=== PATIENT | female | born 1980 | race Caucasian/White ===

== ENCOUNTER 2019-10-31 02:25 | Emergency (ER) | payer MEDICARE, SELFPAY ==
--- NOTE | ~2019-10-31 | XR_ITS ---
EXAMINATION: XR chest 2V DATE: 10/31/2019 03:11 INDICATION: Anxiety. Shortness of breath. TECHNIQUE: PA and lateral views of the chest were obtained. COMPARISON: None FINDINGS: Lung volumes are decreased. No focal airspace opacities, pulmonary edema, pleural effusion or pneumot horax. The cardiomediastinal silhouette is normal. Moderate thoracic spondylosis. IMPRESSION: 1. Small lung volumes. No other acute cardiopulmonary disease. Reviewed, dictated and finalized at location A.
[2019-10-31 02:28] VITALS: BP 187/75; PULSE 81; RESP 26; TEMP 37.1; O2SAT 98
--- NOTE | 2019-10-31 02:38 | ED.GENADULT ---
HPI - General Adult General Chief complaint: Asthma Stated complaint: asthma attack Time Seen by Provider: 10/31/19 02:32 History of Present Illness HPI narrative: Patient presents to the ED with a asthma attack . She has a loud stridorous sound, that stops when answering questions or getting her temperature taken. She said that her inhalers were not working at home. She feels short of breath. She denies cough chills or sweats. She says she has a burning chest pain and points from her upper sternum to her lower sternum. She denies any GERD. Her surgical history includes gastric bypass, and a blotched states. She does not smoke cigarettes, and alcohol, or do drug. She does not work outside the home. She takes Zoloft for her anxiety. Onset (ago): hour(s) Radiation: non-radiation Severity: moderate Related Data Home Medications Medication Instructions Recorded Confirmed albuterol sulfate 90 mcg/actuation 2 puff INHALATION Q4-6H PRN gm 03/16/19 03/16/19 aerosol inhaler ferrous sulfate 325 mg (65 mg 325 mg PO DAILY 03/16/19 03/16/19 iron) tablet levothyroxine 50 mcg tablet 50 mcg PO DAILY 03/16/19 03/16/19 vits no.118-iron asparto 2 cap PO DAILY cap 03/16/19 03/16/19 30 mg-folate 1 mg-dha 300 mg capsule vitamin B complex 1 cap PO DAILY 03/16/19 03/16/19 vitamin B12 1,000 mcg-folic acid lozenge SUBLINGUAL DAILY 03/16/19 03/16/19 400 mcg sublingual lozenge Allergies Allergy/AdvReac Type Severity Reaction Status Date / Time NSAIDS (Non-Steroidal Allergy Severe due to Verified 10/31/19 04:23 Anti-Inflamma gastric bypass ciprofloxacin Allergy Mild rash Verified 10/31/19 04:23 ayleen Allergy Mild Rash Verified 10/31/19 04:23 Review of Systems Review of Systems: Narrative: CONSTITUTIONAL: Denies fever, chills, or sweats. EYES: Denies visual changes, redness, or discharge. ENT: Denies rhinorrhea, congestion, sore throat, or otalgia. CARDIOVASCULAR: She has chest pain,. RESPIRATORY: Denies cough but does complain of shortness of breath GASTROINTESTINAL: Denies abdominal pain, nausea, vomiting, or diarrhea. GENITOURINARY: Denies dysuria or hematuria. SKIN: Denies rash or itching. MUSCULOSKELETAL: Denies back pain, joint pain, or myalgia. NEUROLOGIC: Denies headache, numbness, or weakness. PSYCHIATRIC: She has anxiety. All systems reviewed & are unremarkable except as noted in HPI and below PMFSH Past Medical History Medical History Depression Morbid obesity Surgical History Surgical History (Updated 10/31/19 @ 02:42 by Rona Golden MD) Bariatric surgery status Social History Social History Smoking status: Never smoker Second hand tobacco smoke exposure: No Smoking end date: 03/25/00 Alcohol intake: never Substance use: never Exam Narrative: Exam Narrative: GENERAL: Well-appearing, well-nourished, and in no acute distress. Overweight. Loud voluntary stridorous sound. HEAD: Normocephalic, atraumatic. EYES: PERRLA and EOMI. ENT: Nares clear, no rhinorrhea or epistaxis. Mucous membranes moist. NECK: Supple. CHEST: Clear to auscultation. No respiratory distress. No retractions, no wheezes, no crackles. HEART: Regular rate and rhythm. No murmur heard. Normal peripheral pulses. ABDOMEN: Soft, nontender, nondistended, normal active bowel sounds. EXTREMITIES: Normal range of motion. No edema. SKIN: Warm, dry, no rash. NEURO: No focal deficits. Alert and oriented x3. PSYCH: Crying. Course Reevaluation(s) Reevaluation #1: Her shortness of breath is resolved. She still says that she has some burning in her chest. GI cocktail did help the upper chest. We will try to repeat it without the belladonna for the lower chest. We will also give an oral Pepcid. Date: 10/31/19 Time: 04:09 Reevaluation #2: Give the patient a second GI cocktail without the belladonna, and
[2019-10-31] MEDS: BELLADONNA ALK/PHENOB ELIX 10 ML, MAG HYDROX/ALUMINUM HYD/SIMETH 30 ML, LIDOCAINE HCL 2... PO (02:53)
[2019-10-31 02:54] LABS: Alveolar/Arterial O2 Gradient 26.7 mmHg; Base Excess ABG -0.5 mEq/l (+/-2.0); Fractional Inspired Oxygen 21 %; HCO3 ABG 23.4 mEq/l (22.0-26.0); Oxygen Content ABG 17.4 %vol (16.0-22.0); Oxygen Saturation ABG 96.2 % (95.0-100.0); Oxyhemoglobin 93.7 % THb (90.0-100.0); PO2 ABG 79.9 mmHg (80.0-100.0); Total Hemoglobin 13.2 g/dL (12.0-18.0); pH ABG 7.431 (7.350-7.450)
[2019-10-31 02:55] LABS: Device ROOM AIR; Modified Allen's Test Pass; Site Drawn RIGHT RADIAL
[2019-10-31 02:56] VITALS: BP 148/81; PULSE 82; RESP 20; O2SAT 100
--- NOTE | 2019-10-31 03:25 | PC.NURSE ---
Patient reports no pain relief with meds--DR Golden aware
[2019-10-31 03:45] LABS: Basophils Percent Auto 0.5 % (0.2-1.2); Eosinophils Absolute Auto 0.1 K/mm3 (0-0.3); Eosinophils Percent Auto 1.1 % (0-4.4); Hematocrit 38.6 % (37.0-47.0); Hemoglobin 12.3 g/dL (12.0-15.0); Immature Granulocyte Absolute 0.03 K/mm3 (0.00-0.031); Immature Granulocyte Percent A 0.4 % (0-0.5); Lymphocytes Absolute Auto 1.34 K/mm3 (0.9-3.2); Lymphocytes Percent Auto 15.8 % (18.3-44.2); Mean Corpuscular HGB Conc 31.9 g/dl (32-36); Mean Corpuscular Hemoglobin 28.2 pg (26-34); Mean Corpuscular Volume 88.5 fl (80-100); Mean Platelet Volume 10.3 fl (7.4-10.4); Monocytes Absolute Auto 0.5 K/mm3 (0.1-0.6); Monocytes Percent Auto 5.4 % (2.6-8.5); Neutrophils Absolute Auto 6.5 K/mm3 (1.3-6.7); Neutrophils Percent Auto 76.8 % (45.5-73.1); Platelet Count Result 227 k/mm3 (150-375); Red Blood Count 4.36 M/mm3 (4.2-5.4); Red Cell Distribution Width 16.5 % (11.5-14.5); White Blood Count 8.5 K/mm3 (4.5-10.0)
[2019-10-31 03:58] LABS: Alanine Aminotransferase 21 U/L (4-35); Alkaline Phosphatase 60 U/L (38-126); Anion Gap 9 mmol/L (8-16); Aspartate Amino Transferase 21 U/L (14-36); Bilirubin,Total < 0.1 mg/dL (0.2-1.3); Blood Urea Nitrogen 15 mg/dL (7-17); Calcium 8.9 mg/dL (8.4-10.2); Carbon Dioxide 22 mmol/L (22-30); Chloride 107 mmol/L (98-107); Estimated CRCL calculation 177 ml/min; Estimated Glomerular Filt Rate > 60; Glucose 117 mg/dL (65-105); Potassium 3.7 mmol/L (3.4-5.0); Sodium 138 mmol/L (137-145)
[2019-10-31] MEDS: LIDOCAINE HCL 2% VISC SOLN 15 ML UDC PO (04:20)
[2019-10-31] MEDS: MAG HYDROX/AL HYDROX/SIMETH 30 ML UDC PO (04:20)
[2019-10-31 04:31] VITALS: BP 140/78; PULSE 65; RESP 17; O2SAT 98
[2019-10-31] MEDS: FAMOTIDINE 20 MG TABLET PO (04:32)
[2019-10-31 05:47] VITALS: BP 141/90; PULSE 82; RESP 16; TEMP 36.9; O2SAT 100
== END 2019-10-31 05:48 | disposition home or self-care (01) ==
PROVIDERS: Emergency Provider Emergency Medicine; PCP Internal Medicine
DX: R06.4 Hyperventilation (principal); R07.89 Other chest pain; K21.0 Gastro-esophageal reflux disease with esophagitis; J45.909 Unspecified asthma, uncomplicated; F41.9 Anxiety disorder, unspecified; E66.01 Morbid (severe) obesity due to excess calories; Z68.41 Body mass index [BMI] 40.0-44.9, adult; Z98.84 Bariatric surgery status; F32.9 Major depressive disorder, single episode, unspecified
CPT/HCPCS: 36415; 36600; 71046; 80053; 82805; 85025; 99283; A9270

== ENCOUNTER 2019-12-29 07:13 | Outpatient (CLI) | payer MEDICARE, SELFPAY ==
--- NOTE | ~2019-12-29 | XR_ITS ---
XR hip BI 2V w AP pelvis DATE: 12/29/2019 07:45 INDICATION: Bilateral hip pain TECHNIQUE: AP pelvis. AP and lateral views of each hip COMPARISON: None FINDINGS: Surgical clips overlie the lower abdomen and pelvis bilaterally. No pelvic fracture or bone destruction is detected. The pubic symphysis and sacroiliac joints are int act. Hip joint spaces are symmetric and relatively well preserved. No fracture, dislocation, avascular necrosis or bone destruction of either hip is evident. There is m ild spurring of the left femoral head consistent with mild left hip osteoarthritis. IMPRESSION: Mild left hip osteoarthritis Reviewed, dictated and finalized at location A.
--- NOTE | ~2019-12-29 | XR_ITS ---
XR lumbar spine 2-3V DATE: 12/29/2019 07:44 INDICATION: Back pain, bilateral hip pain. No injury. TECHNIQUE: AP, lateral, coned lateral lumbosacral views COMPARISON: None FINDINGS: Postoperative changes of the abdomen are noted bilaterally. Minimal dextroscoliosis of the lower thoracic and lumbar spine. There is multilevel moderate to moderately severe degenerative disc disease of the lumbar spine. No f racture or bone destruction or spondylolisthesis. The included lower thoracic and lumbar pedicles are intact. Normal sacroiliac joints. IMPRESSION: Minimal dextro scoliosis Moderate to moderately severe multilevel degenerative disc disease of the lumbar and lumbosacral spin e Reviewed, dictated and finalized at location A. IMPRESSION: Minimal dextro scoliosis Moderate to moderately severe multilevel degenerative disc disease of the lumba r and lumbosacral spine
== END 2019-12-29 07:14 | disposition home or self-care (01) ==
LOC: ANHIMG 07:20
PROVIDERS: PCP Internal Medicine; Visit Provider Internal Medicine
DX: M16.12 Unilateral primary osteoarthritis, left hip (principal); M51.36 Other intervertebral disc degeneration, lumbar region; M25.551 Pain in right hip
CPT/HCPCS: 72100; 73521

== ENCOUNTER 2020-04-04 12:05 | Outpatient (NON) | payer MEDICARE, SELFPAY ==
[2020-04-06 00:15] LABS: SARS-CoV-2 RNA PCR Negative
== END 2020-04-04 12:06 ==
LOC: ANHCOVIDDT 12:06
PROVIDERS: PCP Internal Medicine; Visit Provider Internal Medicine
DX: Z20.822 Contact with and (suspected) exposure to COVID-19 (principal)
CPT/HCPCS: C9803; U0003

== ENCOUNTER 2020-07-06 15:23 | Outpatient (CLI) | payer MEDICARE, SELFPAY | END 2020-07-06 15:24 | disposition home or self-care (01) | LOC: ANHCOVIDVC 15:23 | PROVIDERS: PCP Internal Medicine | DX: Z23 Encounter for immunization (principal) | CPT/HCPCS: 0001A; 91300 ==

== ENCOUNTER 2020-07-27 17:39 | Outpatient (CLI) | payer MEDICARE, SELFPAY | END 2020-07-27 17:40 | disposition home or self-care (01) | LOC: ANHCOVIDVC 17:39 | PROVIDERS: PCP Internal Medicine | DX: Z23 Encounter for immunization (principal) | CPT/HCPCS: 0002A; 91300 ==

== ENCOUNTER 2020-08-16 08:42 | Emergency (ER) | payer MEDICARE, SELFPAY ==
--- NOTE | ~2020-08-16 | CT_ITS ---
EXAMINATION: CT lumbar spine w con DATE: 08/16/2020 11:04 INDICATION: Left-sided low back pain. TECHNIQUE: Computed tomography (CT) of the lumbar spine was performed with 100 mL Omnipaque 350 intra venous contrast. Automated exposure control and iterative reconstruction technique were employed. The dose-length product was 1409.01 mGy-cm. COMPARISON: None FINDINGS: There are surgical changes in the stomach. There is 4 degrees levocurvature of lower lumbar spine. There is 11 degrees dextroscoliosis of thoracolumbar spine. There are Schmorl's nodes at many levels. There is mildly decreased disc height at L1-L2, moderately decreased disc height at L2-L3, L 3-L4, and L4-L5 and mildly decreased disc height at L5-S1. The following disc levels are specifically discussed: L1-L2: The disc is bulging. There is mild bilateral facet joint osteoarthritis. There is mild bilater al neural foraminal stenosis. There is mild central canal stenosis. L2-L3: The disc is bulging. There is moderate bilateral facet joint osteoarthritis. There is mild mao ateral neural foraminal stenosis. There is mild central canal stenosis. L3-L4: Disc is bulging. There is mild bilateral facet joint osteoarthritis. There is moderate right a nd mild left neural foraminal stenosis. There is mild central canal stenosis. L4-L5: The disc is bulging. There is severe bilateral facet joint osteoarthritis. There is moderate b ilateral neural foraminal stenosis. There is mild central canal stenosis. L5-S1: The disc is bulging. There is severe bilateral facet joint osteoarthritis. There is mild bilat eral neural foraminal stenosis. There is mild central canal stenosis. IMPRESSION: 1. Moderate lumbar spondylosis. 2. Scoliosis. Reviewed, dictated and finalized at location B.
[2020-08-16 08:45] VITALS: BP 161/112; PULSE 83; RESP 18; TEMP 37.4; O2SAT 95
[2020-08-16] MEDS: MORPHINE SULFATE (*CRX) 2 MG/ML INJ IV PUSH (09:43)
[2020-08-16] MEDS: SODIUM CHLORIDE 0.9% IV 1,000 ML 999 ML IV CONT (09:43)
[2020-08-16] MEDS: diazePAM INJ (*CRX) 10 MG/2 ML SYRINGE 5 MG IV PUSH (09:43)
[2020-08-16] MEDS: DEXAMETHASONE SOD PHOS INJ 4 MG/ML VIAL 10 MG IV PUSH (09:43)
[2020-08-16 09:45] VITALS: BP 150/83; PULSE 84; RESP 28; O2SAT 98
[2020-08-16] MEDS: LIDOCAINE 5% PATCH 1 PATCH TRANSDERM (09:49)
[2020-08-16 09:52] LABS: Basophils Percent Auto 0.6 % (0.2-1.2); Eosinophils Absolute Auto 0.2 K/mm3 (0-0.3); Eosinophils Percent Auto 2.7 % (0-4.4); Hematocrit 39.8 % (37.0-47.0); Hemoglobin 12.6 g/dL (12.0-15.0); Immature Granulocyte Absolute 0.02 K/mm3 (0.00-0.031); Immature Granulocyte Percent A 0.3 % (0-0.5); Lymphocytes Absolute Auto 1.57 K/mm3 (0.9-3.2); Lymphocytes Percent Auto 22.2 % (18.3-44.2); Mean Corpuscular HGB Conc 31.7 g/dl (32-36); Mean Corpuscular Hemoglobin 27.8 pg (26-34); Mean Corpuscular Volume 87.7 fl (80-100); Mean Platelet Volume 10.4 fl (7.4-10.4); Monocytes Absolute Auto 0.5 K/mm3 (0.1-0.6); Monocytes Percent Auto 7.1 % (2.6-8.5); Neutrophils Absolute Auto 4.8 K/mm3 (1.3-6.7); Neutrophils Percent Auto 67.1 % (45.5-73.1); Platelet Count Result 322 k/mm3 (150-375); Red Blood Count 4.54 M/mm3 (4.2-5.4); Red Cell Distribution Width 16.7 % (11.5-14.5); White Blood Count 7.1 K/mm3 (4.5-10.0)
[2020-08-16 10:02] LABS: Add Urine Microscopic? YES; Appearance Urine Cloudy (Clear); Bilirubin Urine Negative (Negative); Blood Urine Negative (Negative); Color Urine Yellow (Yellow); Glucose Urine UA Negative (Negative); Ketones Urine Negative (Negative); Leukocyte Esterase Ur Negative LEU/UL (Negative); Mucus Urine Heavy /lpf; Nitrate Urine Negative (Negative); Protein Urine 1+ mg/dL (Negative); Specific Grav Ur 1.025 (1.001-1.035); Squamous Epithelial Cell Urine Occasional /hpf (Few); Urobilinogen Urine Negative mg/dL (<2.0); WBC Urine 0-3 /hpf
[2020-08-16 10:18] VITALS: BP 166/98; PULSE 80; RESP 15; O2SAT 95
[2020-08-16 10:20] LABS: Erythrocyte Sedimentation Rate 21 mm/hr (0-20)
--- NOTE | 2020-08-16 10:32 | ED.GENADULT ---
HPI - General Adult General Chief complaint: Back Pain/Injury Stated complaint: back pain Time Seen by Provider: 08/16/20 09:11 Source: patient and RN notes reviewed Mode of arrival: ambulatory Limitations: no limitations History of Present Illness HPI narrative: Patient is a 39-year-old female who presents to emergency department for evaluation of pain to the left lower back that radiates down the leg began a week ago after helping lift an object with her family member patient notes longstanding history of chronic low back pain is followed by primary care for this pain is worse with activity and movement. Patient denies other illness injury or complaint on arrival appears uncomfortable presents with a walker notes that the pain is giving her issues with moving about. Related Data Home Medications Medication Instructions Recorded Confirmed albuterol sulfate 90 mcg/actuation 2 puff INHALATION Q4-6H PRN gm 03/16/19 04/27/20 aerosol inhaler ferrous sulfate 325 mg (65 mg 325 mg PO DAILY 03/16/19 04/27/20 iron) tablet levothyroxine 50 mcg tablet 50 mcg PO DAILY 03/16/19 04/27/20 vits no.118-iron asparto 2 cap PO DAILY cap 03/16/19 04/27/20 30 mg-folate 1 mg-dha 300 mg capsule vitamin B complex 1 cap PO DAILY 03/16/19 04/27/20 vitamin B12 1,000 mcg-folic acid lozenge SUBLINGUAL DAILY 03/16/19 04/27/20 400 mcg sublingual lozenge bupropion HCl 300 mg 24 hr tablet, 300 mg PO QAM 07/19/20 extended release duloxetine 60 mg capsule,delayed 60 mg PO DAILY 07/19/20 release Allergies Allergy/AdvReac Type Severity Reaction Status Date / Time NSAIDS (Non-Steroidal Allergy Severe due to Verified 08/16/20 08:53 Anti-Inflamma gastric bypass ciprofloxacin Allergy Mild rash Verified 08/16/20 08:53 ayleen Allergy Mild Rash Verified 08/16/20 08:53 Review of Systems Review of Systems: All systems reviewed & are unremarkable except as noted in HPI and below PMFSH Past Medical History Medical History Asthma Depression Hypothyroidism Morbid obesity Vaginal delivery Surgical History Surgical History Bariatric surgery status Previous section Family History Family History Father Hypertension Family history of elevated blood lipids Mother Hypertension Other Diabetes mellitus Social History Social History Years smoked: 2 Smoking status: Former smoker Second hand tobacco smoke exposure: No Smoking end date: 03/25/00 Additional smoking assessment comments: A pack a week Alcohol intake: never Substance use: never Substance use type: marijuana Gender identity (if verbalized by the patient): Female Exam Narrative: Exam Narrative: GENERAL: Well-appearing, obese, uncomfortable and in no acute distress. HEAD: Normocephalic, atraumatic. EYES: PERRLA and EOMI. ENT: Nares clear, no rhinorrhea or epistaxis. Mucous membranes moist. CHEST: Clear to auscultation. No respiratory distress. No wheezes rales or rhonchi HEART: Regular rate and rhythm. No murmur heard. Normal peripheral pulses. ABDOMEN: Soft, nontender, nondistended EXTREMITIES: Normal range of motion. No edema. Tenderness of the left lower lumbar region over the SI region no rashes or deformities SKIN: Warm, dry, no rash. NEURO: No focal deficits. Alert and oriented x3. Cranial nerves II through XII grossly intact. Motor and sensory intact and symmetrical in the lower extremities PSYCH: Normal mood and affect. Course Course Emergency Course: Patient will be discharged with outpatient follow-up with primary care afebrile nontoxic-appearing no distress agreeing with this plan had improvement with medications ABCs and vital signs intact and stable Vital Signs Vital signs: Vital S
[2020-08-16 10:35] LABS: Alanine Aminotransferase 19 U/L (4-35); Albumin Level 3.9 g/dL (3.5-5.1); Alkaline Phosphatase 65 U/L (38-126); Anion Gap 8 mmol/L (8-16); Aspartate Amino Transferase 20 U/L (14-36); Bilirubin,Total 0.2 mg/dL (0.2-1.3); Blood Urea Nitrogen 11 mg/dL (7-17); CRP < 0.5 mg/dL (<1.0); Calcium 8.9 mg/dL (8.4-10.2); Carbon Dioxide 24 mmol/L (22-30); Chloride 109 mmol/L (98-107); Estimated CRCL calculation 150 ml/min; Estimated Glomerular Filt Rate > 60; Glucose 97 mg/dL (65-105); Sodium 141 mmol/L (137-145)
[2020-08-16 10:39] LABS: Amphetamine Screen Urine Negative (Negative); Barbiturate Screen Urine Negative (Negative); Benzodiazepines Screen Urine Negative (Negative); Cannabinoid Screen Urine Positive (Negative); Cocaine Screen Urine Negative (Negative); Methadone Screen Urine Negative (Negative); Opiate Screen Urine Negative (Negative); Phencyclidine Screen Urine Negative (Negative)
--- NOTE | 2020-08-16 11:06 | PC.NURSE ---
Report given to Joseluis NGUYEN at this time
[2020-08-16 11:27] VITALS: BP 137/90; PULSE 68; RESP 20; O2SAT 96
[2020-08-16] MEDS: PROMETHAZINE HCL 25 MG/ML AMPUL 12.5 MG IV PUSH (11:48)
--- NOTE | 2020-08-16 11:53 | PC.NURSE ---
50mL saline bag used for Phenergan dilution.
[2020-08-16 12:15] VITALS: BP 145/88; PULSE 69; RESP 18; O2SAT 98
== END 2020-08-16 12:17 | disposition home or self-care (01) ==
PROVIDERS: Emergency Medicine Emergency Medical Services; Emergency Provider Emergency Medicine; PCP Internal Medicine
DX: M47.26 Other spondylosis with radiculopathy, lumbar region (principal); J45.909 Unspecified asthma, uncomplicated; E03.9 Hypothyroidism, unspecified; E66.01 Morbid (severe) obesity due to excess calories; Z68.41 Body mass index [BMI] 40.0-44.9, adult; F32.9 Major depressive disorder, single episode, unspecified; Z98.84 Bariatric surgery status; Z87.891 Personal history of nicotine dependence; M41.9 Scoliosis, unspecified
CPT/HCPCS: 36415; 51701; 72132; 80053; 80307; 81001; 81025; 85025; 85652; 86140; 96361; 96374; 96375; 99284; A9270; J1100; J2270; J2550; J3360; J7030; Q9967

== ENCOUNTER 2020-09-23 15:36 | Outpatient (CLI) | payer MEDICARE, SELFPAY ==
--- NOTE | ~2020-09-23 | MM_ITS ---
EXAMINATION: MM screening beti BI w leo HISTORY: Screening mammogram TECHNIQUE: Craniocaudal and mediolateral oblique 3-D tomosynthesis images were obtained and synthetic 2-D images were generated. CAD analysis was submitted and interpreted. COMPARISON: None, baseline BREAST PARENCHYMAL COMPOSITION: The breasts are almost entirely fatty. FINDINGS: RIGHT BREAST: A mass is present in the middle third of the outer breast 9.5 cm from the nipple. LEFT BREAST: There is no evidence of suspicious mass, calcification, or architectural distortion to s uggest malignancy. IMPRESSION: 1. Right breast mass. 2. Additional mammographic views and possible breast ultrasound are recommended to evaluate for malig maria dolores and establish a baseline given that this is the first mammographic examination. BI-RADS Category 0: Incomplete: Needs additional imaging evaluation. Reviewed, dictated and finalized at location A. IMPRESSION: 1. Right breast mass. 2. Additional mammographic views and possible breast ultrasound are recommended to evaluate for malignancy and establish a baseline given that this is the fir st mammographic examination. BI-RADS Category 0: Incomplete: Needs additional imaging evaluation.
== END 2020-09-23 15:37 | disposition home or self-care (01) ==
LOC: ANHIMG 15:45
PROVIDERS: PCP Internal Medicine; Visit Provider Obstetrics & Gynecology
DX: Z12.31 Encounter for screening mammogram for malignant neoplasm of breast (principal); R92.8 Other abnormal and inconclusive findings on diagnostic imaging of breast
CPT/HCPCS: 77063; 77067

== ENCOUNTER 2020-11-01 11:18 | Outpatient (CLI) | payer MEDICARE, SELFPAY ==
--- NOTE | ~2020-11-01 | MMUS_ITS ---
EXAMINATION: MM diagnostic beti RT w leo, US breast RT limited HISTORY: Follow-up right breast asymmetry TECHNIQUE: Additional 3-D tomosynthesis images of the right breast were performed and synthetic 2-D i mages were generated. CAD analysis was submitted and interpreted. High resolution Limited right breas t ultrasound was performed. COMPARISON: 09/23/2020 BREAST PARENCHYMAL COMPOSITION: Breast composed of scattered areas of fibroglandular density. FINDINGS: MAMMOGRAPHIC FINDINGS: The asymmetry lateral aspect of the right breast on cc view is less dense with spot compression view, most likely superimposed fibroglandular tissue. No discrete mass, architectural distortion or suspic ious calcifications are identified. ULTRASOUND: Limited right breast ultrasound: Normal heterogeneous echotexture without focal solid or cystic mass. IMPRESSION: 1. No evidence for malignancy in the right breast. 2. Routine yearly screening mammogram and regular clinical breast examination are recommended. BI-RADS Category 2: Benign finding(s). Reviewed, dictated and finalized at location A. IMPRESSION: 1. No evidence for malignancy in the right breast. 2. Routine yearly screening mammogram and regular clinical breast examination a re recommended. BI-RADS Category 2: Benign finding(s).
== END 2020-11-01 11:19 | disposition home or self-care (01) ==
LOC: ANHIMG 11:19
PROVIDERS: PCP Internal Medicine; Visit Provider Obstetrics & Gynecology
DX: R92.8 Other abnormal and inconclusive findings on diagnostic imaging of breast (principal)
CPT/HCPCS: 76642; 77061; 77065; G0279

== ENCOUNTER 2020-12-04 05:56 | Emergency (ER) | payer MEDICARE, SELFPAY ==
--- NOTE | ~2020-12-04 | XR_ITS ---
EXAMINATION: XR chest 1V portable EXAM DATE: 12/04/2020 08:28 INDICATION: Cough. TECHNIQUE: Portable AP frontal chest x-ray was obtained. Comparison is made to prior examination from 10/31/2019. FINDINGS: The lungs are clear. There are no pleural effusions. The cardiomediastinal silhouette is within normal limits. There is no pneumothorax suspected. The bones and soft tissues are unremarkab le. IMPRESSION: No acute cardiopulmonary findings. Reviewed, dictated and finalized at location A.
[2020-12-04 05:59] VITALS: BP 163/102; PULSE 69; RESP 17; TEMP 36.6; O2SAT 98
[2020-12-04 08:10] VITALS: BP 143/79; PULSE 70; RESP 12; O2SAT 98
[2020-12-04] MEDS: SODIUM CHLORIDE 0.9% IV 1,000 ML 999 ML IV CONT (08:20)
[2020-12-04 08:26] LABS: Basophils Percent Auto 0.6 % (0.2-1.2); Eosinophils Absolute Auto 0.2 K/mm3 (0-0.3); Eosinophils Percent Auto 2.3 % (0-4.4); Hematocrit 35.7 % (37.0-47.0); Immature Granulocyte Absolute 0.02 K/mm3 (0.00-0.031); Immature Granulocyte Percent A 0.3 % (0-0.5); Lymphocytes Percent Auto 21.6 % (18.3-44.2); Mean Corpuscular HGB Conc 30.8 g/dl (32-36); Mean Corpuscular Hemoglobin 26.5 pg (26-34); Mean Platelet Volume 9.7 fl (7.4-10.4); Monocytes Absolute Auto 0.6 K/mm3 (0.1-0.6); Monocytes Percent Auto 8.8 % (2.6-8.5); Neutrophils Absolute Auto 4.6 K/mm3 (1.3-6.7); Neutrophils Percent Auto 66.4 % (45.5-73.1); Platelet Count Result 275 k/mm3 (150-375); Red Blood Count 4.15 M/mm3 (4.2-5.4); Red Cell Distribution Width 15.9 % (11.5-14.5); White Blood Count 6.9 K/mm3 (4.5-10.0)
[2020-12-04 08:27] LABS: Add Urine Microscopic? NO; Appearance Urine Clear (Clear); Bilirubin Urine Negative (Negative); Blood Urine Negative (Negative); Color Urine Yellow (Yellow); Glucose Urine UA Negative (Negative); Ketones Urine Negative (Negative); Leukocyte Esterase Ur Negative LEU/UL (Negative); Nitrate Urine Negative (Negative); Protein Urine Negative (Negative); Specific Grav Ur 1.018 (1.001-1.035); Urobilinogen Urine Negative mg/dL (<2.0)
[2020-12-04 08:46] LABS: Alanine Aminotransferase 30 U/L (4-35); Albumin Level 4.1 g/dL (3.5-5.1); Alkaline Phosphatase 69 U/L (38-126); Anion Gap 7 mmol/L (8-16); Aspartate Amino Transferase 29 U/L (14-36); Bilirubin,Total 0.3 mg/dL (0.2-1.3); Blood Urea Nitrogen 13 mg/dL (7-17); Carbon Dioxide 24 mmol/L (22-30); Chloride 105 mmol/L (98-107); Estimated CRCL calculation 173 ml/min; Estimated Glomerular Filt Rate > 60; Glucose 106 mg/dL (65-110); Lipase 260 U/L (23-300); Potassium 4.5 mmol/L (3.4-5.0); Sodium 136 mmol/L (137-145)
--- NOTE | 2020-12-04 09:30 | ED.GENADULT ---
HPI - General Adult General Chief complaint: Unspecified Stated complaint: rectal pain, congestion Time Seen by Provider: 12/04/20 08:00 Source: patient Mode of arrival: ambulatory Limitations: no limitations History of Present Illness HPI narrative: Patient is 40 years old white female presented to the ED because of rectal pain. Patient have history of similar symptoms over the years off and on. Patient had watery diarrhea started yesterday, subsequently started having pain at the rectal area. Patient started on Kaopectate, which stopped the diarrhea. Patient reports maximum 3 episodes of watery stool yesterday. Patient been having cold symptoms over the last 3 days including nasal congestion, sore throat, postnasal discharge, her kids had similar symptoms, tested negative for COVID-19. Patient is fully vaccinated for COVID-19 patient denies any shortness of breath or chest pain. Related Data Home Medications Medication Instructions Recorded Confirmed albuterol sulfate 90 mcg/actuation 2 puff INHALATION Q4-6H PRN gm 03/16/19 11/07/20 aerosol inhaler ferrous sulfate 325 mg (65 mg 325 mg PO DAILY 03/16/19 11/07/20 iron) tablet vits no.118-iron asparto 2 cap PO DAILY cap 03/16/19 11/07/20 30 mg-folate 1 mg-dha 300 mg capsule vitamin B complex 1 cap PO DAILY 03/16/19 11/07/20 vitamin B12 1,000 mcg-folic acid lozenge SUBLINGUAL DAILY 03/16/19 11/07/20 400 mcg sublingual lozenge bupropion HCl 300 mg 24 hr tablet, 300 mg PO QAM 07/19/20 11/07/20 extended release duloxetine 60 mg capsule,delayed 60 mg PO DAILY 07/19/20 11/07/20 release Allergies Allergy/AdvReac Type Severity Reaction Status Date / Time NSAIDS (Non-Steroidal Allergy Severe due to Verified 11/07/20 10:40 Anti-Inflamma gastric bypass ciprofloxacin Allergy Mild rash Verified 11/07/20 10:40 ayleen Allergy Mild Rash Verified 11/07/20 10:40 Review of Systems Review of Systems: CONSTITUTIONAL: Denies fever, chills, or sweats. EYES: Denies visual changes, redness, or discharge. ENT: Denies rhinorrhea, congestion, sore throat, or otalgia. CARDIOVASCULAR: Denies chest pain, palpitations, or edema. RESPIRATORY: Denies cough or dyspnea. GASTROINTESTINAL: Denies abdominal pain, nausea, vomiting, or diarrhea. GENITOURINARY: Denies dysuria or hematuria. SKIN: Denies rash or itching. MUSCULOSKELETAL: Denies back pain, joint pain, or myalgia. NEUROLOGIC: Denies headache, numbness, or weakness. PSYCHIATRIC: Denies anxiety or depression. PMFSH Past Medical History Medical History Asthma Depression Hypothyroidism Morbid obesity Vaginal delivery Surgical History Surgical History Bariatric surgery status Previous section Family History Family History Father Hypertension Family history of elevated blood lipids Mother Hypertension Other Diabetes mellitus Social History Social History Years smoked: 2 Smoking status: Former smoker Second hand tobacco smoke exposure: No Smoking end date: 03/25/00 Additional smoking assessment comments: A pack a week Alcohol intake: never Substance use: never Substance use type: marijuana Gender identity (if verbalized by the patient): Female Exam Narrative: General appearance: Well-developed, well-nourished, hoarseness of voice Skin: Normal color Head: Normocephalic, nontraumatic Eyes: Clear conjunctiva ENT: Oropharynx normal, ears normal, nose normal Neck: Supple, nontender Chest and respiratory: Airway patent, no respiratory distress, no accessory muscle use Heart: Regular rate/rhythm Abdomen: Soft, nontender, no organomegaly, quiet bowel sounds, rectal exam showed mild tender hemorrhoids, internally, no thrombosis, no mass Vascular: Normal peripheral puls
[2020-12-04 10:45] VITALS: BP 144/101; PULSE 80; RESP 14; O2SAT 99
[2020-12-05 18:39] LABS: SARS-CoV-2 RNA PCR Negative
== END 2020-12-04 10:46 | disposition home or self-care (01) ==
PROVIDERS: Emergency Provider Emergency Medicine; PCP Internal Medicine
DX: K52.9 Noninfective gastroenteritis and colitis, unspecified (principal); K64.9 Unspecified hemorrhoids; F32.9 Major depressive disorder, single episode, unspecified; E03.9 Hypothyroidism, unspecified; E66.01 Morbid (severe) obesity due to excess calories; Z20.822 Contact with and (suspected) exposure to COVID-19; Z87.09 Personal history of other diseases of the respiratory system; Z87.891 Personal history of nicotine dependence
CPT/HCPCS: 36415; 71045; 80053; 81003; 81025; 83690; 85025; 96360; 99283; C9803; J7030; U0003; U0005

== ENCOUNTER 2022-01-16 09:24 | Outpatient (CLI) | payer MEDICARE, SELFPAY ==
--- NOTE | ~2022-01-16 | MM_ITS ---
EXAMINATION: MM screening [facility] BI w leo HISTORY: Screening mammogram TECHNIQUE: Craniocaudal and mediolateral oblique 3-D tomosynthesis images were obtained and synthetic 2-D images were generated. CAD analysis was submitted and interpreted. COMPARISON: 11/01/2020, 09/23/2020 BREAST PARENCHYMAL COMPOSITION: There are scattered areas of fibroglandular density. FINDINGS: RIGHT BREAST: A possible mass is present in the middle third of the outer breast 9 cm from the nipple . This area appears to be more prominent than on the comparison examination. LEFT BREAST: No suspicious mass, calcification, or architectural distortion are identified to suggest malignancy. There has been no suspicious interval change. IMPRESSION: 1. Possible right breast mass. 2. Additional mammographic views and possible breast ultrasound are recommended. BI-RADS Category 0: Incomplete: Needs additional imaging evaluation. Reviewed, dictated and finalized at location A. IMPRESSION: 1. Possible right breast mass. 2. Additional mammographic views and possible breast ultrasound are recommended . BI-RADS Category 0: Incomplete: Needs additional imaging evaluation.
== END 2022-01-16 09:25 | disposition home or self-care (01) ==
PROVIDERS: PCP Internal Medicine; Visit Provider Obstetrics & Gynecology
DX: Z12.31 Encounter for screening mammogram for malignant neoplasm of breast (principal); R92.8 Other abnormal and inconclusive findings on diagnostic imaging of breast
CPT/HCPCS: 77063; 77067

== ENCOUNTER 2022-01-31 11:45 | Outpatient (CLI) | payer MEDICARE, SELFPAY ==
--- NOTE | ~2022-01-31 | MMUS_ITS ---
EXAMINATION: US breast RT limited, MM diagnostic beti RT w leo HISTORY: Possible mass reported in middle third of outer breast 9 cm from nipple on 01/16/2022 screen ing mammogram examination TECHNIQUE: Additional 3-D tomosynthesis images of the right breast were performed and synthetic 2-D i mages were generated. CAD analysis was submitted and interpreted. High resolution upper outer and low er-outer quadrant right breast ultrasound was performed. COMPARISON: 01/16/2022 screening mammogram FINDINGS: MAMMOGRAPHIC FINDINGS: Approximately 3 x 7 m opacity is noted in the lower outer right breast at mid breast depth. ULTRASOUND: 8:00 6 cm from nipple: Parallel circumscribed approximately 2.6 x 9.6 x 6.3 mm septated cyst or possi erwin an intramammary lymph node is noted, without internal vascularity or posterior shadowing. This is likely benign. IMPRESSION: 1. Probably benign finding, lower outer right breast 2. 6 month diagnostic right mammogram and targeted right breast ultrasound follow-up are recommended BI-RADS category 3, probably benign findings. Reviewed, dictated and finalized at location A. CTOR AND PROFESSOR IMPRESSION: 1. Probably benign finding, lower outer right breast 2. 6 month diagnostic right mammogram and targeted right breast ultrasound foll ow-up are recommended BI-RADS category 3, probably benign findings.
== END 2022-01-31 11:46 | disposition home or self-care (01) ==
LOC: ANHIMG 11:49
PROVIDERS: PCP Internal Medicine; Visit Provider Obstetrics & Gynecology
DX: R92.8 Other abnormal and inconclusive findings on diagnostic imaging of breast (principal)
CPT/HCPCS: 76642; 77061; 77065; G0279

== ENCOUNTER 2022-02-11 06:54 | Emergency (ER) | payer MEDICARE, SELFPAY ==
[2022-02-11] VITALS (45 sets, daily range): BP systolic 127–163; BP diastolic 72–102; PULSE 54–78; RESP 13–36; TEMP 36.3; O2SAT 96–100
--- NOTE | ~2022-02-11 | CT_ITS ---
EXAMINATION: 1. CT facial & cervical spine wo DATE: 02/11/2022 09:05 INDICATION: Head injury post syncopal episode with swelling to the nose and lips. TECHNIQUE: 1. Computed tomography (CT) of the maxillofacial region and of the cervical spine were performed with out intravenous contrast. Sagittal and coronal reconstructions of both regions were obtained. Automat ed exposure control and iterative reconstruction technique were employed. The dose-length product was 472.26 mGy-cm. COMPARISON: Head CT dated 12/12/2004 FINDINGS: Maxillofacial CT: No maxillofacial fractures identified. Specifically the diaz of the orbits and paranasal sinuses, th e zygomatic arches, nasal bones pterygoid plates and mandible remain intact. Normal alignment with mi ld osteoarthritis at the bilateral temporomandibular joints. Nasal septum appears intact and midline. Orbits are normal. Small mucous retention cyst in the right sphenoid sinus. Visualized mastoid air c ells and middle ear cavities are clear. Cervical spine CT: 9 degree cervical levocurvature. Straightening of the normal cervical lordosis. Vertebral body and di sc heights are normal. No fracture. Mild disc bulge at C4-C5 resulting in minimal central canal steno sis at this level. Multilevel mild bilateral facet and uncovertebral osteoarthritis with mild neural foraminal stenosis on the right at C4-C5. Cervical soft tissues are unremarkable. Minimal groundglass opacity at the dependent apices of lungs most likely related to expiratory phase of imaging. IMPRESSION: 1. No maxillofacial or cervical spine fractures. 2. Mild cervical levocurvature with minimal spondylosis. Reviewed, dictated and finalized at location A. SUPERVISOR
--- NOTE | ~2022-02-11 | CT_ITS ---
EXAMINATION: CT brain wo con DATE: 02/11/2022 09:05 INDICATION: Head and facial injury post syncopal episode with loss of consciousness TECHNIQUE: Computed tomography (CT) of the head was performed without intravenous contrast. Sagittal and coronal reconstructions were performed. The mA was adjusted according to patient size. Iterative reconstruction technique was employed. The dose-length product was 529.67 mGy-cm. COMPARISON: head CT dated 12/12/2004 FINDINGS: No calvarial fracture. No acute intracranial hemorrhage, acute infarction or abnormal extra axial flu id collection. Ventricles are normal and symmetric. No mass/mass effect. The orbits and mastoid air cells are normal. Small mucous retention cyst in the right sphenoid sinus. IMPRESSION: 1. Normal brain. No fracture or acute intracranial process. Reviewed, dictated and finalized at location A. N TEACHER
--- NOTE | ~2022-02-11 | CT_ITS ---
EXAMINATION: CTA chest PE protocol DATE: 02/11/2022 11:10 INDICATION: Midsternal chest pain. Elevated d-dimer. TECHNIQUE: Computed tomography (CT) pulmonary angiogram of the chest was performed with 100 mL Omnipa que-350 intravenous contrast. Additional 3D reconstructions utilizing coronal maximum intensity proje ction (MIP) were performed. Automated exposure control and iterative reconstruction technique were em ployed. The dose-length product was 867.19 mGy-cm. COMPARISON: None FINDINGS: Good contrast opacification of the pulmonary arteries. There is moderate streak artifact from dense c ontrast in the left brachiocephalic vein, superior vena cava and right atrium. Minimal scattered resp iratory motion artifact which does not significantly limit evaluation. No pulmonary embolism. Minimal atelectasis at the posterior sulci of the bilateral lower lobes. No pneumonia, pulmonary edema, pleu ral effusion or pneumothorax. Heart size is normal. No pericardial or pleural effusion. Thoracic aort a is normal in caliber with no dissection. No pathologically enlarged thoracic lymphadenopathy. Small sliding-type hiatal hernia with change of prior Ole-en-Y gastric bypass procedure. Low-attenuation hemangiomas with typical pattern of peripheral puddling of contrast on prior multiphasic pre and post contrast MRI dated 09/01/2014 in the left hepatic lobe the larger more caudal measuring 4.5 cm and the smaller more cephalad measuring 3.8 cm. Visualized upper abdomen is otherwise unremarkable. Mild to moderate lower thoracic predominant spondylosis. Mild likely physiologic anterior wedging at T11 and T12. IMPRESSION: 1. Enlargement of the central pulmonary arteries consistent with pulmonary arterial hypertension. No pulmonary embolism or other acute cardiopulmonary disease. 2. Small sliding-type hiatal hernia with changes of prior Ole-en-Y gastric bypass procedure. Reviewed, dictated and finalized at location A. GER CODE IMPRESSION: 1. Enlargement of the central pulmonary arteries consistent with pulmonary fernanda rial hypertension. No pulmonary embolism or other acute cardiopulmonary disease . 2. Small sliding-type hiatal hernia with changes of prior Ole-en-Y gastric byp ass procedure.
--- NOTE | 2022-02-11 07:06 | ECG_ITS ---
Measurements Intervals [place] Rate: 68 P: 26 RI: 179 QRS: 11 QRSD: 105 T: 21 QT: 381 QTc: 407 Interpretive Statements SINUS RHYTHM CONSIDER INFERIOR INFARCT, AGE INDETERMINATE BASELINE ARTIFACT- I, II, AVR, AVF, V6 ABNORMAL ECG NO PREVIOUS ECG AVAILABLE FOR COMPARISON Electronically Signed On 02-11-2022 7:09:15 [employer]RO[employer] by Eduardo Ortiz D.O.
[2022-02-11 07:26] LABS: Basophils Percent Auto 0.6 % (0.2-1.2); Eosinophils Absolute Auto 0.1 K/mm3 (0-0.3); Eosinophils Percent Auto 0.7 % (0-4.4); Hematocrit 33.4 % (37.0-47.0); Hemoglobin 9.7 g/dL (12.0-15.0); Immature Granulocyte Absolute 0.04 K/mm3 (0.00-0.031); Immature Granulocyte Percent A 0.6 % (0-0.5); Lymphocytes Absolute Auto 0.97 K/mm3 (0.9-3.2); Lymphocytes Percent Auto 13.4 % (18.3-44.2); Mean Corpuscular Hemoglobin 22.1 pg (26-34); Mean Corpuscular Volume 76.1 fl (80-100); Mean Platelet Volume 9.5 fl (7.4-10.4); Monocytes Absolute Auto 0.3 K/mm3 (0.1-0.6); Monocytes Percent Auto 4.1 % (2.6-8.5); Neutrophils Absolute Auto 5.9 K/mm3 (1.3-6.7); Neutrophils Percent Auto 80.6 % (45.5-73.1); Platelet Count Result 377 k/mm3 (150-375); Red Blood Count 4.39 M/mm3 (4.2-5.4); Red Cell Distribution Width 23.1 % (11.5-14.5); White Blood Count 7.3 K/mm3 (4.5-10.0)
[2022-02-11 07:33] LABS: Alanine Aminotransferase 22 U/L (6-35); Albumin Level 4.2 g/dL (3.5-5.1); Alkaline Phosphatase 60 U/L (38-126); Anion Gap 10 mmol/L (8-16); Aspartate Amino Transferase 26 U/L (14-36); Bilirubin,Total 0.1 mg/dL (0.2-1.3); Blood Urea Nitrogen 14 mg/dL (7-17); Calcium 8.9 mg/dL (8.4-10.2); Carbon Dioxide 23 mmol/L (22-30); Chloride 105 mmol/L (98-107); Estimated CRCL calculation 170 ml/min; Estimated Glomerular Filt Rate > 60; Glucose 104 mg/dL (65-110); Potassium 4.3 mmol/L (3.4-5.0); Sodium 138 mmol/L (137-145)
[2022-02-11 07:36] LABS: Platelet Estimate Adequate (Adequate)
[2022-02-11 07:37] LABS: Anisocytosis 1+ (NORMAL); Hypochromasia 1+ (NORMAL)
[2022-02-11 07:38] LABS: Ovalocytes 2+ (NORMAL); Schistocytes None Seen (NORMAL); Tear Drop Cells 1+ (NORMAL)
--- NOTE | 2022-02-11 08:39 | ED.GENADULT ---
HPI - General Adult General Chief complaint: Syncope Stated complaint: syncopal & abd pain Time Seen by Provider: 02/11/22 08:21 History of Present Illness HPI narrative: 41-year-old female the past medical history of gastric bypass surgery in 2013, anemia, hypothyroidism, hypertension presents for evaluation of syncope. Patient states that she had stomach cramps this morning and diarrhea. She went to use the commode and while using the restroom she had a syncopal event. Patient woke up on the floor and unknown amount of time later and noticed soreness and bruising to her nasal bridge and face. Patient had urinated and defecated while unconscious. Patient did not take her metoprolol this morning but did take her p.m. dose. She does take her Synthroid regularly and is unsure when she last had her thyroid hormone checked. Patient has a history of anemia and is currently being worked up by GI for potential GI bleed versus dysmenorrhea. Her hemoglobin seems to have improved by 1 g since it was last checked. After last visit patient was prescribed p.o. iron supplementation at home. Related Data Home Medications Medication Instructions Recorded Confirmed albuterol sulfate 90 mcg/actuation 2 puff inhalation Q4-6H PRN 03/16/19 02/02/22 aerosol inhaler (Ventolin HFA) Shortness Of Breath Or Wheezing vits no.118-iron asparto 2 cap PO DAILY 03/16/19 02/02/22 30 mg-folate 1 mg-dha 300 mg capsule (PrimaCare) vitamin B complex (Super B-50 1 cap PO DAILY 03/16/19 02/02/22 Complex capsule) vitamin B12 1,000 mcg-folic acid lozenge sublingual DAILY 03/16/19 02/02/22 400 mcg sublingual lozenge citalopram 10 mg tablet 10 mg PO DAILY 01/17/22 02/02/22 calcium carbonate 600 mg calcium 600 mg PO TID 02/02/22 02/02/22 (1,500 mg) tablet (Calcium) Allergies Allergy/AdvReac Type Severity Reaction Status Date / Time NSAIDS (Non-Steroidal Allergy Severe due to Verified 02/11/22 07:04 Anti-Inflamma gastric bypass ciprofloxacin Allergy Mild rash Verified 02/11/22 07:04 ayleen Allergy Mild Rash Verified 02/11/22 07:04 Review of Systems Review of Systems: CONSTITUTIONAL: Denies fever, chills, or sweats. EYES: Denies visual changes, redness, or discharge. ENT: Denies rhinorrhea, congestion, sore throat, or otalgia. CARDIOVASCULAR: Denies chest pain, palpitations, or edema. RESPIRATORY: Denies cough or dyspnea. GASTROINTESTINAL: Denies abdominal pain, nausea, vomiting, or diarrhea. GENITOURINARY: Denies dysuria or hematuria. SKIN: Denies rash or itching. MUSCULOSKELETAL: Denies back pain, joint pain, or myalgia. NEUROLOGIC: Denies headache, numbness, or weakness. PSYCHIATRIC: Denies anxiety or depression. [facility] Past Medical History Medical History (Updated 02/11/22 @ 13:23 by Christian Busch DO) Asthma Depression Epigastric pain Fatigue GERD (gastroesophageal reflux disease) Hypothyroidism Morbid obesity Nausea Vaginal delivery Surgical History Surgical History Bariatric surgery status Hx of gastric bypass Previous section Family History Family History Father Hypertension Family history of elevated blood lipids Mother Hypertension Other Diabetes mellitus Social History Social History Years smoked: 2 Smoking status: Former smoker Second hand tobacco smoke exposure: No Smoking end date: 03/25/00 Additional smoking assessment comments: A pack a week Alcohol intake: never Substance use: never Substance use type: marijuana Lack of Transportation: No Lack of Food: Never True Current Housing: I Have Housing Concerned About Future Housing: No Difficulty Paying Gas/Electric Bills: No Difficulty Paying for Meds: No Currently Unemployed: No Education: High School Diploma/GED Difficulty w/ C
[2022-02-11 09:48] LABS: Free T4 Free Thyroxine 1.11 ng/mL (0.78-2.19)
[2022-02-11] MEDS: ACETAMINOPHEN 500 MG TABLET 1000 MG PO (10:20)
== END 2022-02-11 13:37 | disposition home or self-care (01) ==
PROVIDERS: Emergency Medicine; Emergency Provider Emergency Medicine; PCP Internal Medicine
DX: R55 Syncope and collapse (principal); E03.9 Hypothyroidism, unspecified; J45.909 Unspecified asthma, uncomplicated; K21.9 Gastro-esophageal reflux disease without esophagitis; E66.01 Morbid (severe) obesity due to excess calories; Z68.41 Body mass index [BMI] 40.0-44.9, adult; F32.A Depression, unspecified; Z98.84 Bariatric surgery status; Z87.891 Personal history of nicotine dependence; R94.31 Abnormal electrocardiogram [ECG] [EKG]
CPT/HCPCS: 36415; 70450; 70486; 71275; 72125; 80053; 84439; 84443; 85025; 85380; 93005; 99284; A9270; Q9967

== ENCOUNTER 2022-03-08 13:40 | Outpatient (CLI) | payer MEDICARE, SELFPAY ==
--- NOTE | 2022-03-08 14:06 | ECHO_ITS ---
Patient Info Name: Lakeshia Reyez Age: 41 years : 1980 Gender: Female Ht: 67 in Wt: 270 lbs BSA: 2.47 m2 HR: 72 bpm BP: 152 / 105 mmHg Technical Quality: Good Exam Date: 03/08/2022 2:08 PM Exam Location: [facility] Patient Status: Outpatient Admit Date: 03/08/2022 Staff Ordering Physician: Damian Hale PA-C Honey Producer: Myla Smart RDCS Attending Provider: Damian Hale PA-C Referring Physician: Alexia OCONNOR; Exam Type: CA echo doppler color flow Study Info Indications R55 - Syncope and collapse Complete two-dimensional, color flow and Doppler transthoracic echocardiogram is performed. Summary 1. Complete two-dimensional, color flow and Doppler transthoracic echocardiogram is performed. 2. Left ventricular chamber dimension is mildly enlarged. 3. Left ventricular systolic function is normal, estimated at 60-65%. 4. The left ventricular diastolic function is grade II diastolic dysfunction. 5. E/e' 8 is minimally elevated. 6. Global longitudinal strain is normal at -17.3%. 7. There is trace mitral valve regurgitation. 8. There is trace tricuspid valve regurgitation. 9. No pulmonary hypertension, estimated pulmonary arterial systolic pressure is 25 mmHg. Left Ventricle E/e' 8 is minimally elevated. Global longitudinal strain is normal at -17.3%. Left ventricular chamber dimension is mildly enlarged. Left ventricular systolic function is normal, estimated at 60-65%. The left ventricular diastolic function is grade II diastolic dysfunction. Right Ventricle Right ventricular systolic function is normal and with normal TAPSE 2.8 cm. Right ventricular chamber dimension is normal. Left Atria Left atrial chamber dimension is normal. Right Atria Right atrial chamber dimension is normal. Aortic Valve The aortic valve is trileaflet. There is no aortic valve stenosis. There is no aortic valve regurgitation. Pulmonic Valve There is no pulmonic regurgitation. Mitral Valve There is no mitral valve stenosis. There is trace mitral valve regurgitation. Tricuspid Valve There is trace tricuspid valve regurgitation. No pulmonary hypertension, estimated pulmonary arterial systolic pressure is 25 mmHg. Pericardium/Pleural There is no pericardial effusion. Inferior Vena Cava Normal inferior vena cava with >50% collapse upon inspiration consistent with normal right atrial pressure, 5 mmHg. Aorta The aortic root size at the sinus of Valsalva is normal. Left Ventricular Outflow Tract Name Value Normal LVOT 2D LVOT Diameter 2.0 cm LVOT Doppler LVOT Peak Gradient 4 mmHg LVOT Mean Gradient 3 mmHg LVOT VTI 26 cm LVOT VTI/AV VTI Ratio 1.0 LVOT Stroke Volume 81 ml LVOT CO 5.5 l/min LVOT CI 2.2 l/min/m2 Pulmonic Valve Name Value No
== END 2022-03-08 13:41 | disposition home or self-care (01) ==
LOC: ANHCARD 13:41
PROVIDERS: PCP Internal Medicine; Visit Provider Physician Assistant
DX: R55 Syncope and collapse (principal)
CPT/HCPCS: 93306

== ENCOUNTER 2022-03-13 01:03 | Day surgery (SDC) | payer MEDICARE, SELFPAY ==
[2022-03-06 12:34] VITALS: BMI 42.5
[2022-03-13 08:41] VITALS: BP 157/98; PULSE 59; RESP 20; TEMP 36.1; O2SAT 99
--- NOTE | 2022-03-13 08:46 | WPDANESEPPF ---
Anes - Initial Pre Proc Eval Procedure: Operation Date: 03/13/22 10:00 Proposed Procedures p Esophagogastroduodenoscopy & Colonoscopy - Artemio Garcia MD Date/Time: 03/13/22 08:46 Surgeon: Artemio Garcia MD Pre Op Diagnosis: iron deficiency anemia Patient Data Age: 41 Gender: F Height: 1.7 m Weight: 121.7 kg Last Vital Signs Temp 36.1 C L 03/13/22 08:41 Pulse 59 L 03/13/22 08:41 Resp 20 03/13/22 08:41 BP 157/98 H 03/13/22 08:41 Pulse Ox 99 03/13/22 08:41 O2 Del Method Room Air 03/13/22 08:41 Allergies Allergy/AdvReac Type Severity Reaction Status Date / Time NSAIDS (Non-Steroidal Allergy Severe due to Verified 03/13/22 08:36 Anti-Inflamma gastric bypass ciprofloxacin Allergy Mild rash Verified 03/13/22 08:36 ayleen Allergy Mild Rash Verified 03/13/22 08:36 Home Medications Medication Instructions Recorded Confirmed Type albuterol sulfate 90 mcg/actuation 2 puff inhalation Q4-6H PRN 03/16/19 03/06/22 History aerosol inhaler (Ventolin HFA) Shortness Of Breath Or Wheezing vits no.118-iron asparto 2 cap PO DAILY 03/16/19 03/06/22 History 30 mg-folate 1 mg-dha 300 mg capsule (PrimaCare) vitamin B complex (Super B-50 1 cap PO DAILY 03/16/19 03/06/22 History Complex capsule) vitamin B12 1,000 mcg-folic acid 1 lozenge sublingual DAILY 03/16/19 03/06/22 History 400 mcg sublingual lozenge citalopram 10 mg tablet 10 mg PO DAILY 01/17/22 03/06/22 History ferrous sulfate 325 mg (65 mg 325 mg PO DAILY #30 tabs 01/17/22 03/06/22 Rx iron) tablet (FeroSul) levothyroxine 50 mcg tablet 50 mcg PO DAILY #90 tabs 01/17/22 03/06/22 Rx (Synthroid) pantoprazole 40 mg tablet,delayed 40 mg PO QAM #90 tabs 01/17/22 03/06/22 Rx release calcium carbonate 600 mg calcium 600 mg PO TID 02/02/22 03/06/22 History (1,500 mg) tablet (Calcium) metoprolol succinate 50 mg 50 mg PO DAILY #90 tabs 02/28/22 03/06/22 Rx tablet,extended release 24 hr ergocalciferol (vitamin D2) 1,250 50,000 unit PO .COMPLEX #18 caps 03/01/22 03/06/22 Rx mcg (50,000 unit) capsule Patient hx anesthesia problems: none Family hx anesthesia problems: none Results Review: All pre-operative results and documents have been reviewed as part of the pre-operative evaluation. [facility] Past Medical History Medical History Asthma Depression Epigastric pain Fatigue GERD (gastroesophageal reflux disease) Hypothyroidism Morbid obesity Nausea Vaginal delivery Surgical History Surgical History Bariatric surgery status Hx of gastric bypass Previous section Family History Family History Father Hypertension Family history of elevated blood lipids Mother Hypertension Other Diabetes mellitus Social History Social History Smoking packs per day: 0.25 Smoking cigarettes per day: 5.0 Years smoked: 2 Smoking pack-years: 0.50 Smoking status: Former smoker Tobacco type: cigarettes Second hand tobacco smoke exposure: No Smoking end date: 03/25/00 Additional smoking assessment comments: A pack a week Alcohol intake: never Substance use: never Substance use type: marijuana Lack of Transportation: No Lack of Food: Never True Current Housing: I Have Housing Concerned About Future Housing: No Difficulty Paying Gas/Electric Bills: No Difficulty Paying for Meds: No Currently Unemployed: No Education: High School Diploma/GED Difficulty w/ Childcare or Family Care: No Living arrangements: with family Gender identity (if verbalized by the patient): Female Spiritual care concerns: No Anes - Eval Final PreProcedure Day of Procedure 03/13/22 08:46 Patient weight: obese Heart: regular rate and
[2022-03-13] MEDS: LACTATED RINGERS 1,000 ML 150 ML IV CONT (08:53)
--- NOTE | 2022-03-13 09:12 | PM.HPGS ---
History of Present Illness History of Present Illness Consent: Risks, benefits, and alternatives have been discussed and questions answered. Patient agrees to proceed with procedure. Chief complaint: iron deficiency anemia Narrative: Lakeshia Reyez is a 41 year old female with andrew, denies overt gib, she had gastric bypass in 2013, also h/o heavy cycles but better lately. Using ppi daily. Never had scopes. Review of Systems Constitutional: Constitutional: Denies headache(s) and Denies weakness Eyes: Eyes: Denies blurry vision ENT: Reports Normal hearing present, Denies headache(s) and Denies neck pain Cardiovascular: Cardiovascular: Denies chest pain and Denies dyspnea Respiratory: Respiratory: Denies dyspnea Gastrointestinal: Gastrointestinal: Reports no additional gastrointestinal complaints Genitourinary: Genitourinary: Denies dysuria Musculoskeletal: Musculoskeletal: Denies neck pain Integumentary/Breasts: Skin/Breast: Denies dry skin Neurologic: Reports Normal hearing present, Denies headache(s) and Denies weakness Psychiatric: Psychiatric: Denies anxiety Endocrine: Endocrine: Denies change in body appearance Hematologic/Lymphatic: Hematologic/Lymphatic: Denies easy bleeding Allergic/Immunologic: Allergic/Immunologic: Denies urticaria PMFSH Past Medical History Medical History Asthma Depression Epigastric pain Fatigue GERD (gastroesophageal reflux disease) Hypothyroidism Morbid obesity Nausea Vaginal delivery Surgical History Surgical History Bariatric surgery status Hx of gastric bypass Previous section Family History Family History Father Hypertension Family history of elevated blood lipids Mother Hypertension Other Diabetes mellitus Social History Social History Smoking packs per day: 0.25 Smoking cigarettes per day: 5.0 Years smoked: 2 Smoking pack-years: 0.50 Smoking status: Former smoker Tobacco type: cigarettes Second hand tobacco smoke exposure: No Smoking end date: 03/25/00 Additional smoking assessment comments: A pack a week Alcohol intake: never Substance use: never Substance use type: marijuana Lack of Transportation: No Lack of Food: Never True Current Housing: I Have Housing Concerned About Future Housing: No Difficulty Paying Gas/Electric Bills: No Difficulty Paying for Meds: No Currently Unemployed: No Education: High School Diploma/GED Difficulty w/ Childcare or Family Care: No Living arrangements: with family Gender identity (if verbalized by the patient): Female Spiritual care concerns: No Meds Home Medications and Allergies Home Medications Medication Instructions Recorded Confirmed Type albuterol sulfate 90 mcg/actuation 2 puff inhalation Q4-6H PRN 03/16/19 03/06/22 History aerosol inhaler (Ventolin HFA) Shortness Of Breath Or Wheezing vits no.118-iron asparto 2 cap PO DAILY 03/16/19 03/06/22 History 30 mg-folate 1 mg-dha 300 mg capsule (PrimaCare) vitamin B complex (Super B-50 1 cap PO DAILY 03/16/19 03/06/22 History Complex capsule) vitamin B12 1,000 mcg-folic acid 1 lozenge sublingual DAILY 03/16/19 03/06/22 History 400 mcg sublingual lozenge citalopram 10 mg tablet 10 mg PO DAILY 01/17/22 03/06/22 History ferrous sulfate 325 mg (65 mg 325 mg PO DAILY #30 tabs 01/17/22 03/06/22 Rx iron) tablet (FeroSul) levothyroxine 50 mcg tablet 50 mcg PO DAILY #90 tabs 01/17/22 03/06/22 Rx (Synthroid) pantoprazole 40 mg tablet,delayed 40 mg PO QAM #90 tabs 01/17/22 03/06/22 Rx release calcium carbonate 600 mg calcium 600 mg PO TID 02/02/22 03/06/22 History (1,500 mg) tablet (Calcium) metoprolol succinate 50 mg 50 mg PO DAILY #90 tabs 02/28
--- NOTE | 2022-03-13 09:27 | SUR.OPER ---
EGD end 921 COLONOSCOPY start 926
[2022-03-13 09:39] VITALS: BP 125/81; PULSE 56; RESP 22; O2SAT 100
[2022-03-13 09:49] VITALS: BP 122/73; PULSE 52; RESP 17; O2SAT 100
[2022-03-13 09:59] VITALS: BP 146/97; PULSE 59; RESP 19; O2SAT 100
== END 2022-03-13 10:08 | disposition home or self-care (01) ==
PROVIDERS: PCP Internal Medicine; Visit Provider Internal Medicine Gastroenterology
PROC: 0DJ08ZZ Inspection of Upper Intestinal Tract, Via Natural or Artificial Opening Endoscopic (ICD-10-PCS; CPT 43235; principal; 2022-03-13 10:00)
DX: Z12.11 Encounter for screening for malignant neoplasm of colon (principal); K64.8 Other hemorrhoids; D50.9 Iron deficiency anemia, unspecified; Z98.84 Bariatric surgery status; J45.909 Unspecified asthma, uncomplicated; E03.9 Hypothyroidism, unspecified; K21.9 Gastro-esophageal reflux disease without esophagitis; F32.A Depression, unspecified; E66.01 Morbid (severe) obesity due to excess calories; Z68.41 Body mass index [BMI] 40.0-44.9, adult; Z87.891 Personal history of nicotine dependence; Z79.51 Long term (current) use of inhaled steroids
CPT/HCPCS: 43239; G0121; 88305; J2704; J7120

== ENCOUNTER 2022-08-30 07:37 | Outpatient (CLI) | payer MEDICARE, SELFPAY ==
[2022-08-30 08:17] LABS: Basophils Percent Auto 0.4 % (0.2-1.2); Eosinophils Absolute Auto 0.1 K/mm3 (0-0.3); Eosinophils Percent Auto 1.4 % (0-4.4); Hematocrit 39.1 % (37.0-47.0); Hemoglobin 12.5 g/dL (12.0-15.0); Immature Granulocyte Absolute 0.02 K/mm3 (0.00-0.031); Immature Granulocyte Percent A 0.4 % (0-0.5); Lymphocytes Absolute Auto 1.14 K/mm3 (0.9-3.2); Lymphocytes Percent Auto 20.1 % (18.3-44.2); Mean Corpuscular Hemoglobin 29.6 pg (26-34); Mean Corpuscular Volume 92.7 fl (80-100); Monocytes Absolute Auto 0.4 K/mm3 (0.1-0.6); Monocytes Percent Auto 6.7 % (2.6-8.5); Platelet Count Result 268 k/mm3 (150-375); Red Blood Count 4.22 M/mm3 (4.2-5.4); Red Cell Distribution Width 13.3 % (11.5-14.5); White Blood Count 5.7 K/mm3 (4.5-10.0)
[2022-08-30 08:27] LABS: Alanine Aminotransferase 34 U/L (6-35); Albumin Level 4.1 g/dL (3.5-5.1); Alkaline Phosphatase 57 U/L (38-126); Anion Gap 6 mmol/L (8-16); Aspartate Amino Transferase 30 U/L (14-36); Bilirubin,Total 0.3 mg/dL (0.2-1.3); Blood Urea Nitrogen 15 mg/dL (7-17); Calcium 8.6 mg/dL (8.4-10.2); Carbon Dioxide 28 mmol/L (22-30); Chloride 104 mmol/L (98-107); Cholesterol 213 mg/dL (0-200); Estimated Glomerular Filt Rate > 60; Glucose 99 mg/dL (65-110); HDL Direct 57 mg/dL; Potassium 4.2 mmol/L (3.4-5.0); Sodium 138 mmol/L (137-145); Triglycerides 158 mg/dL (<150)
[2022-08-30 08:37] LABS: LDL Cholesterol Direct 121 mg/dL
[2022-08-30 08:49] LABS: Iron 51 ug/dL (37-170)
[2022-08-30 08:56] LABS: Vitamin D 25 Hydroxy 20.7 ng/mL
[2022-08-30 08:59] LABS: Percent Iron Saturation 12 % (20-50)
[2022-08-30 09:07] LABS: Free T4 Free Thyroxine 1.18 ng/mL (0.78-2.19)
[2022-08-30 09:32] LABS: Folic Acid 17.5 ng/mL (2.76->20)
== END 2022-08-30 07:38 | disposition home or self-care (01) ==
PROVIDERS: PCP Internal Medicine; Visit Provider Internal Medicine
DX: E55.9 Vitamin D deficiency, unspecified (principal); D50.9 Iron deficiency anemia, unspecified; E03.9 Hypothyroidism, unspecified; R53.83 Other fatigue; Z98.84 Bariatric surgery status
CPT/HCPCS: 36415; 80053; 80061; 82306; 82607; 82746; 83540; 83550; 84439; 84443; 85025

== ENCOUNTER 2022-12-10 12:11 | Outpatient (CLI) | payer MEDICARE, SELFPAY ==
--- NOTE | ~2022-12-10 | MMUS_ITS ---
EXAMINATION: MM diagnostic beti BI w leo, US breast RT limited HISTORY: Follow-up right breast mass TECHNIQUE: Additional 3-D tomosynthesis images of the right breast were performed and synthetic 2-D i mages were generated. CAD analysis was submitted and interpreted. High resolution Limited right breas t ultrasound was performed. COMPARISON: Comparison to multiple prior studies sequentially, with oldest reviewed study dated 04/2020. BREAST PARENCHYMAL COMPOSITION: Breast composed of scattered areas of fibroglandular density FINDINGS: MAMMOGRAPHIC FINDINGS: Stable asymmetry lateral aspect of the right breast, middle third. The left breast is stable without evidence for malignancy. ULTRASOUND: Limited right breast ultrasound: At 8:00, 6 cm from the nipple there is an oval slightly lobulated hy poechoic mass measuring 9 x 5 x 3 mm with heterogeneous internal echoes, parallel orientation, no pos terior features and no internal vascularity. This mass compares to 10 x 3 x 6 mm on prior examination . No other masses identified. IMPRESSION: 1. Stable likely benign right breast mass located at 8:00, 6 cm from the nipple. 2. Recommend 6 month follow-up Limited right breast ultrasound BI-RADS category 3, probably benign findings. Reviewed, dictated and finalized at location A. IMPRESSION: 1. Stable likely benign right breast mass located at 8:00, 6 cm from the nipple . 2. Recommend 6 month follow-up Limited right breast ultrasound BI-RADS category 3, probably benign findings.
== END 2022-12-10 12:12 | disposition home or self-care (01) ==
LOC: ANHIMG 12:14
PROVIDERS: PCP Internal Medicine; Visit Provider Obstetrics & Gynecology
DX: R92.8 Other abnormal and inconclusive findings on diagnostic imaging of breast (principal)
CPT/HCPCS: 76642; 77062; 77066; G0279

== ENCOUNTER 2023-02-04 08:15 | Outpatient (CLI) | payer MEDICARE, SELFPAY ==
[2023-02-04 08:51] LABS: Basophils Absolute Auto 0.1 K/mm3 (0.0-0.1); Basophils Percent Auto 0.8 % (0.2-1.2); Eosinophils Absolute Auto 0.1 K/mm3 (0-0.3); Eosinophils Percent Auto 1.1 % (0-4.4); Hematocrit 42.4 % (37.0-47.0); Hemoglobin 13.5 g/dL (12.0-15.0); Immature Granulocyte Absolute 0.02 K/mm3 (0.00-0.031); Immature Granulocyte Percent A 0.3 % (0-0.5); Lymphocytes Absolute Auto 1.62 K/mm3 (0.9-3.2); Lymphocytes Percent Auto 26.1 % (18.3-44.2); Mean Corpuscular HGB Conc 31.8 g/dl (32-36); Mean Corpuscular Hemoglobin 30.3 pg (26-34); Mean Corpuscular Volume 95.1 fl (80-100); Mean Platelet Volume 9.9 fl (7.4-10.4); Monocytes Absolute Auto 0.4 K/mm3 (0.1-0.6); Monocytes Percent Auto 6.4 % (2.6-8.5); Neutrophils Absolute Auto 4.1 K/mm3 (1.3-6.7); Neutrophils Percent Auto 65.3 % (45.5-73.1); Platelet Count Result 284 k/mm3 (150-375); Red Blood Count 4.46 M/mm3 (4.2-5.4); Red Cell Distribution Width 13.7 % (11.5-14.5); White Blood Count 6.2 K/mm3 (4.5-10.0)
[2023-02-04 09:05] LABS: Iron 96 ug/dL (37-170)
[2023-02-04 09:16] LABS: Percent Iron Saturation 25 % (20-50)
== END 2023-02-04 08:16 | disposition home or self-care (01) ==
PROVIDERS: PCP Internal Medicine; Visit Provider Internal Medicine
DX: D50.9 Iron deficiency anemia, unspecified (principal); E55.9 Vitamin D deficiency, unspecified
CPT/HCPCS: 36415; 83540; 83550; 85025

== ENCOUNTER 2024-05-19 12:02 | Outpatient (CLI) | payer OTHER, SELFPAY ==
--- NOTE | ~2024-05-19 | MM_ITS ---
EXAMINATION: MM screening beti BI w leo HISTORY: Screening mammogram, family history of breast cancer in her mother. TECHNIQUE: Craniocaudal and mediolateral oblique 3-D tomosynthesis images were obtained and synthetic 2-D images were generated. CAD analysis was submitted and interpreted. COMPARISON: 12/10/2022, 01/31/2022, 01/16/2022, 09/23/2020 BREAST PARENCHYMAL COMPOSITION:Not Dense. The breasts are almost entirely fatty FINDINGS: No suspicious mass, calcification, or architectural distortion are identified in either law ast to suggest malignancy. There has been no suspicious interval change. IMPRESSION: No mammographic evidence of malignancy. Recommend routine screening mammography in one year. BI-RADS Category 1: Negative Reviewed, dictated and finalized at location . [employer]
--- OUTSIDE RECORDS SUMMARY | 2024-05-19 13:54 | XMS_ITS | Encounter Summary ---
Author Organization [facility] Address [address] [place] [address] Phone Care Team Providers Care Director Of Respiratory Therapy Name Role Phone Torres Boateng MD Primary Care Provider +[phone]- [phone] Satya Andrade MD Primary Care Provider + [phone] Satya Andrade MD Primary Care Provider + [phone] Torres Boateng MD Primary Care Provider +[phone] Torres Boateng MD Primary Care Provider +1-28 Torres Boateng MD Primary Care Provider +1-62 Satya Andrade MD Primary Care Provider + [phone] Satya Andrade MD Primary Care Provider + [phone] Satya Andrade MD Primary Care Provider + [phone] Satya Andrade MD Primary Care Provider + [phone] Satya Andrade MD Primary Care Provider + [phone] Satya Andrade MD Primary Care Provider + [phone] Torres Boateng MD Primary Care Provider +1-6 Satya Andrade MD Primary Care Provider +1- Satya Andrade MD Primary Care Provider +1- Torres Boateng MD Primary Care Provider +1-6 Satya Andrade MD Primary Care Provider +1- Satya Andrade MD Primary Care Provider +1- Satya Andrade MD Primary Care Provider +1- Torres Boateng MD Primary Care Provider +1-6 Satya Andrade MD Primary Care Provider +1- Satya Andrade MD Primary Care Provider +1- Torres Boateng MD Primary Care Provider +1-6 Satya Andrade MD Primary Care Provider +1- Torres Boateng MD Primary Care Provider +1-6 Satya Andrade MD Primary Care Provider +1- Satya Andrade MD Primary Care Provider +1- Torres Boateng MD Primary Care Provider +1-6 Torres Boateng MD Primary Care Provider +1-6 Satya Andrade MD Primary Care Provider +1- Torres Boateng MD Primary Care Provider +1-6 Satya Andrade MD Primary Care Provider +1- Torres Boateng MD Primary Care Provider +1-6 Satya Andrade MD Primary Care Provider +1- Torres Boateng MD Primary Care Provider +1-6 Satya Andrade MD Primary Care Provider +1- Torres Boateng MD Primary Care Provider +[phone]- [phone] Torres Boateng MD Primary Care Provider +[phone] Satya Andrade MD Primary Care Provider + [phone] Torres Boateng MD Primary Care Provider +[phone] Torres Boateng MD Primary Care Provider +[phone] Satya Andrade MD Primary Care Provider + [phone] Torres Boateng MD Primary Care Provider +[phone] Satya Andrade MD Primary Care Provider + [phone] Jomar Marino DO Primary Care Provider +[phone] Encounter Details Date Type Department Care Team (Latest Contact Info) Description 04/30/2017 Orders Only [facility] CONVERSION Scanning, Provider Social History Tobacco Use Types Packs/Day Years Used Date Smoking Tobacco: Never Cigarettes 0.2 2 - 12/18/1998 Smokeless Tobacco: Never Alcohol Use Standard Drinks/Week Comments No 0 (1 standard drink = 0.6 oz pur e alcohol) Comments Unknown Sex and Gender Information Value Date Recorded Sex Assigned at Not on file Legal Sex Female 11:29 AM [employer] Gender Identity Not on file Sexual Orientation Not on file documented as of this encounter Plan of Treatment Not on file documented as of this encounter Procedures Procedure Name Priority Date/Time Associated Diagnosis Comments OBSTETRIC/GYNECOLOGY ULTRASONOGRAPHY REPORT 05/28/2017 2:55 PM [employer] OBSTETRIC/GYNECOLOGY ULTRASONOGRAPHY REPORT 05/21/2017 11:43 AM [employer] OBSTETRIC/GYNECOLOGY ULTRASONOGRAPHY REPORT 05/14/2017 11:30 AM [employer] OBSTETRIC/GYNECOLOGY ULTRASONOGRAPHY REPORT 05/07/2017 1:13 PM [employer] OBSTETRIC/GYNECOLOGY ULTRASONOGRAPHY REPORT 04/30/2017 2:36 PM [employer] documented in this encounter Results * OBSTETRIC/GYNECOLOGY ULTRASONOGRAPHY REPORT (05/28/2017 2:55 PM [employer]) Anatomical Region Laterality Modality Ultrasound us Provider Scanning IMG OB US PROCEDURES Final Res ult * OBSTETRIC/GYNECOLOGY ULTRASONOGRAPHY REPORT (05/21/2017 11:43 AM [employer]) Anatomical Region Laterality Modality Ultrasound us Provider Scanning IMG OB US PROCEDURES Final Res ult * OBSTETRIC/GYNECOLOGY ULTRASONOGRAPHY REPORT (05/14/2017 11:30 AM [employer]) Anatomical Region Laterality Modality Ultrasound us Provider Scanning IMG OB US PROCEDURES Final Res ult * OBSTETRIC/GYNECOLOGY ULTRASONOGRAPHY REPORT (05/07/2017 1:13 PM [employer]) Anatomical Region Laterality Modality Ultrasound us Provider Scanning IMG OB US PROCEDURES Final Res ult * OBSTETRIC/GYNECOLOGY ULTRASONOGRAPHY REPORT (04/30/2017 2:36 PM [employer]) Anatomical Region Laterality Modality Ultrasound us Provider Scanning IMG OB US PROCEDURES Final Res ult documented in this encounter Visit Diagnoses Not on filedocumented in this encounter Additional Health Concerns Infection Onset Date Last Indicated Resolved Time COVID: Recovered 04/06/2021 05/31/2021 08/04/2021 3:05 AM CDT COVID: Suspected 12/18/2023 12/18/2023 12/18/2023 3:54 PM CDT COVID: Suspected 03/10/2024 03/10/2024 03/10/2024 11:12 AM [employer] COVID19 03/10/2024 03/10/2024 03/20/2024 3:05 AM [employer] COVID: Recovered Comment:Added based on recent COVID infection. 03/20/2024 05/15/2024 COVID: Suspected 05/15/2024 05/15/202405/15/2024 6:25 PM [employer] COVID: Suspected 05/15/2024 05/15/2024 05/16/2024 1:41 AM [employer] documented as of this encounter Care Teams Director Of Respiratory Therapy Relationship Specialty Start Date End Date Torres Boateng MD [address] [place] [address] PCP - General 04/30/17 04/30/17 Satya Andrade MD [address] [place] [address] PCP - General 05/01/17 05/02/17 Satya Andrade MD [address] [place] [address] PCP - General 05/03/17 05/04/17 Torres Boateng MD [address] [place] [address] PCP - General 05/05/17 05/05/17 Torres Boateng MD [address] [place] [address] PCP - General 05/06/17 05/06/17 Torres Boateng MD [address] [place] [address] PCP - General 05/07/17 05/07/17 Satya Andrade MD [address] [place] [address] PCP - General 05/08/17 05/09/17 Satya Andrade MD [address] [facility] [address] [place] [address] PCP - General 05/10/17 05/13/17 Satya Andrade MD [address] [facility] [address] [place] [address] PCP - General 05/14/17 05/15/17 Satya Andrade MD [address] [facility] [address] [place] [address] PCP - General 05/16/17 05/16/17 Satya Andrade MD [address] [facility] [address] [place] [address] PCP - General 05/17/17 05/20/17 Satya Andrade MD [address] [facility] [address] [place] [address] PCP - General 05/21/17 05/21/17 Torres Boateng MD [address] [facility] [address] [place] [address] PCP - General 05/22/17 05/22/17 Satya Andrade MD [address] [facility] [address] [place] [address] PCP - General 05/23/17 05/23/17 Satya Andrade MD [address] [facility] [address] [place] [address] PCP - General 05/24/17 05/27/17 Torres Boateng MD [address] [address] PCP - General 05/28/17 05/28/17 Satya Andrade MD [address] [address] PCP - General 05/29/17 05/30/17 Satya Andrade MD [address] [address] PCP - General 05/31/17 06/04/17 Satya Andrade MD [address] [address] PCP - General 06/05/17 06/05/17 Torres Boateng MD [address] [address] PCP - General 06/06/17 06/09/17 Satya Andrade MD [address] [address] PCP - General 06/10/17 06/10/17 Satya Andrade MD [address] [address] PCP - General 06/11/17 06/16/17 Torres Boateng MD [address] [address] PCP - General 06/17/17 06/17/17 Satya Andrade MD [address] [place] [address] [address] PCP - General 06/18/17 06/18/17 Torres Boateng MD [address] [address] PCP - General 06/19/17 06/19/17 Satya Andrade MD [address] [address] PCP - General 06/20/17 07/01/17 Satya Andrade MD [employer] [address] [address] PCP - General 07/02/17 07/03/17 Torres Boateng MD [address] [place] [address] [address] PCP - General 07/04/17 07/08/17 Torres Boateng MD [address] [address] PCP - General 07/09/17 07/09/17 Satya Andrade MD [address] [address] PCP - General 07/10/17 07/10/17 Torres Boateng MD [address] [place] [address] PCP - General 07/11/17 07/14/17 Satya Andrade MD [address] [place] [address] PCP - General 07/15/17 07/15/17 Torres Boateng MD [address] [place] [address] PCP - General 07/16/17 07/16/17 Satya Andrade MD [address] [place] [address] PCP - General 07/17/17 07/21/17 Torres Boateng MD [address] [facility] [address] [place] [address] PCP - General 07/22/17 07/22/17 Satya Andrade MD [address] [place] [address] PCP - General 07/23/17 08/04/17 Torres Boateng MD [address] [place] [address] PCP - General 08/05/17 08/05/17 Torres Boateng MD [address] [facility] [address] [place] [address] PCP - General 08/06/17 08/06/17 Satya Andrade MD [address] [place] [address] PCP - General 08/07/17 08/18/17 Torres Boateng MD [address] [place] [address] PCP - General 08/19/17 08/20/17 Torres Boateng MD [address] [place] [address] PCP - General 08/21/17 08/21/17 Staya Andrade MD [address] [place] [address] PCP - General 08/22/17 08/22/17 Torres Boateng MD [address] [facility] [address] [place] [address] PCP - General 08/23/17 08/26/17 Satya Andrade MD [address] [place] [address] PCP - General 08/27/17 03/09/24 Jomar Marino DO [address] [place] [address] PCP - General Internal Medicine 03/10/24 documented as of this encounter
--- OUTSIDE RECORDS SUMMARY | 2024-05-19 13:54 | XMS_ITS | Referral Summary ---
Author Organization [facility] Healthcare Address [address] [place] [address] Care Team Providers Care Jewelry Casting Model Maker Name Role Phone Jomar Marino DO Primary Care Provider [phone] Encounters Date Type Department Care Team Description 05/16/2024 Results Follow-Up [facility] Medical [facility] at [address] [phone] Marlen Merritt PA 05/15/2024 6:23 PM STITCHER SET UP OPERATOR AUTOMATIC - 05/15/2024 11:59 PM STITCHER SET UP OPERATOR AUTOMATIC Hospital Encounter [address] [address] Acute viral syndrome Discharge Disposition: Discharge to home or self care 05/15/2024 6:00 PM STITCHER SET UP OPERATOR AUTOMATIC Office Visit [facility] at [address] [phone] Amalia Jones NP Acute viral syndrome (Primary Dx) 03/12/2024 Telephone [facility] at [address] [phone] Barbara Villaseñor NP 03/10/2024 11:39 AM STITCHER SET UP OPERATOR AUTOMATIC - 03/10/2024 11:59 PM STITCHER SET UP OPERATOR AUTOMATIC Hospital Encounter [address] [address] Sore throat Discharge Disposition: Discharge to home or self care 03/10/2024 10:45 AM STITCHER SET UP OPERATOR AUTOMATIC Office Visit [facility] at [address] [phone] Kimberley Alexandra NP Sore throat (Primary Dx); COVID-19 from Last 3 Months Allergies Active Allergy Reactions Criticality Noted Date Comments Ciprofloxacin Anaphylaxis High 06/28/2017 [place] Other (See comments) Low 11/06/2017 It look like I had poison jaxon around my mouth. Nsaids (Non-Steroidal Anti-Inflammatory Drug) Other (See comments) Low 12/18/2016 Due to Gastric Bypass Medications levothyroxine (SYNTHROID, LEVOTHROID) 50 mcg tabletIndications :hypothyroidism Take 1 tablet (50 mcg total) by mouth nightly Active albuterol HFA (PROVENTIL HFA,VENTOLIN HFA) 90 mcg/actuation inhalerIndication s:Acute Asthma Attack Inhale 2 puffs as needed for wheezing or shortness of breath Active calcium citrate-vitamin D3 500 mg calcium -400 unit tablet,chewableIn dications:Hypocal cemia Prevention,Preven tion of Vitamin D Deficiency Take 2 tablets by mouth 3 (three) times a day with meals Active cyanocobalamin (Vitamin B-12) 1,000 mcg sublingual tabletIndications :Prevention of Vitamin B12 Deficiency Take 0.5 tablets (500 mcg total) by mouth nightly Active metoprolol (LOPRESSOR) 25 mg tabletIndications :hypertension Take 1 tablet (25 mg total) by mouth 2 (two) times a day Active busPIRone (BUSPAR) 5 mg tabletIndications :Generalized Anxiety Disorder Take 1 tablet (5 mg total) by mouth 3 (three) times a day Active buPROPion XL (WELLBUTRIN XL) 300 mg 24 hr tabletIndications :Anxiety with Depression Take 1 tablet (300 mg total) by mouth every morning Active white petrolatum (bulk)-dilTIAZem (bulk) Diltiazem 2%: Apply pea size amount (2 cm) to anus BID. 60 g 2 Active Additional Information Patient not taking.Reported on 05/15/2024 multivitamin capsuleIndication s:Vitamin Deficiency Prevention Take 1 capsule by mouth nightly Active psyllium (METAMUCIL) powderIndications :constipation Take 1 packet by mouth 3 (three) times a day Active acetaminophen (TYLENOL) 500 mg tablet Take 2 tablets (1,000 mg total) by mouth as needed for pain Active bismuth subsalicylate (PEPTO-BISMOL) suspension Take 15 mL by mouth as needed for indigestion or diarrhea Active loratadine-pseudo ephedrine (CLARITIN-D 24-hour) 10-240 mg per 24 hr tablet Take 1 tablet by mouth as needed for allergies Active loperamide (IMODIUM) 0.133 mg/mL solutionIndicatio ns:diarrhea Take 15 mL (2 mg total) by mouth as needed for diarrhea Active ferrous sulfate 325 mg (65 mg of elemental iron) tabletIndications :Iron Deficiency Anemia Take 1 tablet (325 mg total) by mouth nightly Active oxyCODONE (ROXICODONE) 5 mg immediate release tabletIndications :Pain Take 1 tablet (5 mg total) by mouth every 4 (four) hours as needed for pain 5 tablet 2 Active Additional Information Patient not taking.Reported on 05/15/2024 oxyCODONE (ROXICODONE) 5 mg immediate release tabletIndications :Pain Take 1 tablet (5 mg total) by mouth every 4 (four) hours as needed for pain 15 tablet 2 Active Additional Information Patient not taking.Reported on 05/15/2024 naloxone (NARCAN) 4 mg/actuation spray,non-aerosol Administer 1 spray into affected nostril(s) as needed for opioid reversal or respiratory depression Call 911. Administer a single spray in one nostril. Repeat every 3 minutes as needed if no or minimal response. 2 each 2 Active Additional Information Patient not taking.Reported on 05/15/2024 oxyCODONE (ROXICODONE) 5 mg immediate release tabletIndications :Pain Take 1 tablet (5 mg total) by mouth every 4 (four) hours as needed for pain 20 tablet 2 Active Additional Information Patient not taking.Reported on 05/15/2024 oxyCODONE (ROXICODONE) 5 mg immediate release tabletIndications :Pain Take 1 tablet (5 mg total) by mouth every 4 (four) hours as needed for pain 20 tablet 2 Active Additional Information Patient not taking.Reported on 05/15/2024 atomoxetine (STRATTERA) 80 mg capsule 4 Active cyclobenzaprine (FLEXERIL) 10 mg tablet 4 Active escitalopram (LEXAPRO) 20 mg tablet 4 Active HYDROcodone-aceta minophen (NORCO) 10-325 mg per tablet TAKE 1/2 TABLET BY MOUTH EVERY 6 HOURS NEEDED FOR PAIN OR ACUTE PAIN Active pantoprazole DR (PROTONIX) 40 mg EC tablet Take 1 tablet (40 mg total) by mouth every morning 4 Active benzonatate (TESSALON) 100 mg capsuleIndication s:Cough Take 1 capsule (100 mg total) by mouth 3 (three) times a day as needed for cough 42 capsule 4 Active lidocaine viscous (XYLOCAINE) 2 % solutionIndicatio ns:Sore throat Apply 10 mL to the mouth or throat every 6 (six) hours as needed (sore throat) May mix with 30 ml of Mylanta 100 mL 4 Active Active Problems Problem Noted Date Diagnosed Date Anal fissure 01/12/2021 Abdominal pannus 02/20/2018 Assessment & Plan (09/01/2018 9:21 AM CDT): Six weeks s/p Monsplasty Healing well, no complications or signs of infection reported or noted on exam. Scar massage discussed. Will return at the 3 month postoperative bj Assessment & Plan (08/19/2018 10:08 AM CDT): Twenty-six day s/p Monsplasty Healing well, no complications or signs of infection reported or noted on exam. KESHIA drain removed without difficulty. Wound care administered, instructions given both verbally and in written form Will return at the 6 week postoperative bj Assessment & Plan (08/08/2018 11:28 AM CDT): 2 weeks s/p Monsplasty T-junction with some delayed healing, scant serosanguinous drainage. Continues with previously prescribed antibiotics. KESHIA drain in place, continues to drain moderate amount and will leave in place until <30mL/day x 3 consecutive days. Will return on Saturday next week for drain removal. She will call if drainage amount is still too high for removal at that time. Morbid obesity 08/06/2017 Depression 07/23/2017 Postoperative visit 07/02/2017 Visit for wound check 07/02/2017 Spinal stenosis 08/08/2015 Encounter for contraceptive management 6 Leiomyoma of uterus, unspecified 08/08/2015 Chronic hypertension 08/08/2015 H/O gastric bypass 08/08/2015 Maternal thyroid dysfunction, antepartum 016 Resolved Problems Problem Noted Date Diagnosed Date Resolved Date Surgical wound, non healing 11/06/2017 02/20/2018 Overview (11/06/2017): Added automatically from request for surgery [id number] Non-healing surgical wound 07/23/2017 1 04/22/2017 Assessment & Plan (10/30/2017 2:09 PM CDT): The patient, her family member, And discussed the possible need for general surgery in this case. Will communicate with on surgery date so that all team members will be available if necessary. Immunizations Immunization Administration Dates Next Due Influenza, Quadrivalent, Rec ombinant, Egg Free, Preservative Free, Intramuscular 01/13/2021 Influenza, Quadrivalent, Spl it, Preservative Free, Intramuscular 12/31/2019,01/15/2017,01/15/2017 Tdap 04/23/2017,04/25/2016 Social History Tobacco Use Types Packs/Day Years Used Date Smoking Tobacco: Former Cigarettes 0.3 2 1 997 - 1998 Smokeless Tobacco: Never Tobacco Cessation:Counseling Given: Not Answered Alcohol Use Standard Drinks/Week Comments No 0 (1 standard drink = 0.6 oz pur e alcohol) AUDIT-C Answer Date Recorded Q1: How often do you have a drink containing alc ohol? Never 06/05/2021 Average Number of Drinks Not on file 022 Q3: How often do you have si x or more drinks on one occasion? Never 06/05/2021 Comments No Sex and Gender Information Value Date Recorded Sex Assigned at Not on file Legal Sex Female 11:29 AM STITCHER SET UP OPERATOR AUTOMATIC Gender Identity Not on file Sexual Orientation Not on file Last Filed Vital Signs Vital Sign Reading Time Taken Comments Blood Pressure 133/88 05/15/2024 6:03 PM STITCHER SET UP OPERATOR AUTOMATIC Pulse 88 05/15/2024 6:03 PM STITCHER SET UP OPERATOR AUTOMATIC Temperature 36.5 C (97.7 F) 05/15/2024 6:03 PM STITCHER SET UP OPERATOR AUTOMATIC Respiratory Rate 20 05/15/2024 6:03 PM STITCHER SET UP OPERATOR AUTOMATIC Oxygen Saturation 96% 05/15/2024 6:03 PM STITCHER SET UP OPERATOR AUTOMATIC Inhaled Oxygen Concentration - - Weight 129.3 kg (285 lb) 05/15/2024 6:03 PM STITCHER SET UP OPERATOR AUTOMATIC Height 172.7 cm (5' 8 ) 12/18/2023 3:31 PM CDT Body Mass Index 43.33 12/18/2023 3:31 PM CDT Plan of Treatment Not on file Medical Devices Implanted Type Area Quality Assurance Device Identifier Shelf Expiration Date Model / Serial / Lot Phasix Mesh Implanted:Qty: 1 on 11/11/2017 by Kerwin Bennett III, MD at [facility] N/A: Abdomen [employer] [id number] 03/21/2019 / / [id number] Procedures Procedure Name Priority Date/Time Associated Diagnosis Comments POC INFLUENZA A/B, COVID-19 ANTIGEN Routine 05/15/2024 6:23 PM STITCHER SET UP OPERATOR AUTOMATIC Acute viral syndrome THROAT CULTURE Routine 05/15/2024 6:23 PM STITCHER SET UP OPERATOR AUTOMATIC Acute viral syndrome INFLUENZA A/B, RSV, AND COVID-19 PCR Routine 05/15/2024 6:23 PM STITCHER SET UP OPERATOR AUTOMATIC Acute viral syndrome POCT RAPID STREP Routine 05/15/2024 6:18 PM STITCHER SET UP OPERATOR AUTOMATIC Acute viral syndrome POCT RAPID STREP Routine 03/10/2024 11:1 7 AM STITCHER SET UP OPERATOR AUTOMATIC Sore throat POC INFLUENZA A/B, COVID-19 ANTIGEN Routine 03/10/2024 11:12 AM STITCHER SET UP OPERATOR AUTOMATIC COVID-19 THROAT CULTURE Routine 03/10/2024 9:00 AM STITCHER SET UP OPERATOR AUTOMATIC Sore throat from Last 3 Months Results * POC Influenza A/B, COVID-19 antigen (05/15/2024 6:23 PM STITCHER SET UP OPERATOR AUTOMATIC) [facility] Influenza A Ag, POC Negative Negative [facility] Influenza B Ag, POC Negative Negative [facility] COVID-19 Ag POC Presumptive Negative Presumptive Negative, Invalid [facility] Nasal 05/15/2024 6:23 PM STITCHER SET UP OPERATOR AUTOMATIC Amalia Jones NP POINT OF CARE TEST ORDERABLES Final Result Performing Organization Address [facility] [[email or web address]] Co de Phone Number [facility] [address] [place] [address] * Influenza A/B, RSV, and COVID-19 PCR Nasopharyngeal (05/15/2024 6:23 PM STITCHER SET UP OPERATOR AUTOMATIC) [facility] COVID-19 RNA Negative Negative Influenza A RNA Negative Negative [facility] Influenza B RNA Negative Negative [facility] RSV RNA Negative Negative [facility] Comment: Interpretive data: Testing performed by [facility]. This test is performed using the [employer] Xpert Xpress CoV-2/Flu/RSV plus assay. This is a multiplex, real-time reverse transcriptase PCR assay intended for the qualitative detection of nucleic acid from SARS-CoV-2, influenza A, influenza B, and respiratory syncytial virus. This assay has been cleared by the [place] Food and Drug administration. The performance characteristics have been verified by the [facility]. Results must be considered in the clinical context, and a negative result does not rule out infection. Interpretive Data last revised 2023 Nasopharyngeal 05/15/2024 6: 23 PM STITCHER SET UP OPERATOR AUTOMATIC 05/16/2024 12:43 AM STITCHER SET UP OPERATOR AUTOMATIC Narrative [facility] - 05/16/2024 1:40 AM STITCHER SET UP OPERATOR AUTOMATIC Is the Patient experiencing symptoms consistent with COVID?->Yes us Amalia Jones NP LAB MICROBIOLOGY - GENERAL ORD ERABLES Final Result Performing Organization Address City/[facility]/ZIP Co de Phone Number [facility] [address] Department [place] [address] * Throat culture Throat (05/15/2024 6:23 PM STITCHER SET UP OPERATOR AUTOMATIC) Pathologist [facility] Report Final Report: No growth of pathogens. Comment:Testing performed by : [facility], [address] [place]., [address] Throat 05/15/2024 6:23 PM STITCHER SET UP OPERATOR AUTOMATIC 05/16/2024 5:32 AM STITCHER SET UP OPERATOR AUTOMATIC Narrative [facility] - 05/17/2024 7:03 AM STITCHER SET UP OPERATOR AUTOMATIC Testing performed by [facility] Microbiology Laboratory ([phone]). Amalia Jones NP LAB MICROBIOLOGY - GENERAL ORD ERABLES Final Result [facility] [address] Department [place] [address] * POCT rapid strep A (05/15/2024 6:18 PM STITCHER SET UP OPERATOR AUTOMATIC) Rapid Strep A, POC Negative Negative Swab 05/15/2024 6:18 PM STITCHER SET UP OPERATOR AUTOMATIC Amalia Jones NP POINT OF CARE TEST ORDERABLES Final Result * POCT rapid strep A (03/10/2024 11:17 AM STITCHER SET UP OPERATOR AUTOMATIC) Rapid Strep A, POC Negative Negative Swab 03/10/2024 11:1 7 AM STITCHER SET UP OPERATOR AUTOMATIC us Kimberley Alexandra NP POINT OF CARE TEST ORDERAB LES Final Result * (ABNORMAL) POC Influenza A/B, COVID-19 antigen (03/10/2024 11:12 AM STITCHER SET UP OPERATOR AUTOMATIC) Influenza A Ag, POC Negative Negative [facility] Influenza B Ag, POC Negative Negative [facility] COVID-19 Ag POC Positive(A) Presumptive Negative, Invalid [facility] Nasal 03/10/2024 11:1 2 AM STITCHER SET UP OPERATOR AUTOMATIC Kimberley Alexandra NP POINT OF CARE TEST ORDERAB LES Final Result [facility] [address] [place] [address], [facility] * Throat culture Throat (03/10/2024 9:00 AM STITCHER SET UP OPERATOR AUTOMATIC) Report Final Report: No growth of pathogens. Comment:Testing performed by : [facility], [address] [facility], [place]., [address] Throat 03/10/2024 9:00 AM STITCHER SET UP OPERATOR AUTOMATIC 03/10/2024 6:02 PM STITCHER SET UP OPERATOR AUTOMATIC Narrative [facility] - 03/11/2024 1:01 PM STITCHER SET UP OPERATOR AUTOMATIC Testing performed by [facility] ([phone]). us Kimberley Alexandra NP LAB MICROBIOLOGY - GENERAL ORDERABLES Final Result [facility] [address] [address] Department [place] [address] from Last 3 Months Additional Health Concerns Infection Onset Date Last Indicated COVID: Recovered Comment:Added based on recent COVID infection. 03/20/2024 025 Insurance * Guarantor: Lakeshia Reyez Account Type Relation to Patient Date of Phone Billing Address Personal/Family Self [address] [place] [address] [facility] Member Subscriber Plan / Payer (Ef fective 2018-Present) Name:Lakeshia Reyez Relation to Subscriber:Self Name:Lakeshia Reyez Payer ID:[id number] (NAIC) Group ID:Not on file Type:MEDICAID RISK OTHER Address: [address] [address] * Guarantor: Lakeshia Reyez Account Type Relation to Patient Date of Phone Billing Address Personal/Family Self 1980 [address] [place] [address] [employer] MED[employer]ARE * Guarantor: Lakeshia Reyez Account Type Relation to Patient Date of Phone Billing Address Personal/Family Self 1980 [address] [address] MEDICARE MEDICARE [facility] [employer] * Guarantor: Lakeshia Reyez Account Type Relation to Patient Date of Phone Billing Address Personal/Family Self 1980 [address] [address] [facility] [place] Advance Directives For more information, please contact: [phone] * Full Code (Latest Code Status on File) Date Activated Date Inactivated Comments 07/24/2018 8:49 PM 07/25/2018 4:15 PM * Full Code Date Activated Date Inactivated Comments 11/25/2017 10:05 PM 11/28/2017 12:40 PM * Full Code Date Activated Date Inactivated Comments 11/11/2017 6:17 PM 11/14/2017 2:47 PM Care Teams Jewelry Casting Model Maker Relationship Specialty Start Date End Date Jomar Marino DO [address] [address] PCP - General Internal Medicine 03/10/24
--- OUTSIDE RECORDS SUMMARY | 2024-05-19 13:54 | XMS_ITS | Encounter Summary ---
Author Organization [facility] Healthcare Address [address] [place] [address] Care Team Providers Care Paper Cutting Machine Operator Name Role Phone Jomar Marino DO Primary Care Provider [phone] Encounter Details Date Type Department Care Team (Late st Contact Info) Description 05/16/2024 Results Follow-Up [facility] at [address] [phone] Marlen Merritt PA [address] [place] [address] [address] [place] [address] Social History Tobacco Use Types Packs/Day Years Used Date Smoking Tobacco: Former Cigarettes 0.3 2 1 7 - 1998 Smokeless Tobacco: Never Alcohol Use Standard Drinks/Week [...] on file Legal Sex Female 11:29 AM HUMIDIFIER ATTENDANT Gender Identity Not on file Sexual Orientation Not on file documented as of this encounter Miscellaneous Notes * Result Encounter Note - Jessica Reed MA - 05/17/2024 8:20 AM CST Patient notified. DIFIER ATTENDANT * Result Encounter Note - Marlen Merritt PA - 05/17/2024 8:05 AM HUMIDIFIER ATTENDANT Please alert patient of negative throat culture. Patient should follow up with PCP if symptoms persist past 10-14 days or worsen at any time. DIFIER ATTENDANT * Result Encounter Note - Marlen Merritt PA - 05/16/2024 8:01 AM HUMIDIFIER ATTENDANT Please notify patient of negative PCR test for COVID, Influenza A/B, and RSV. Please have patient follow up with pcp or return to [facility] if they continue to have symptoms past 10-14 days. DIFIER ATTENDANT documented in this encounter Plan of Treatment Not on file documented as of this encounter Visit Diagnoses Not on filedocumented in this encounter Additional Health Concerns Infection Onset Date Last Indicated Resolved Time COVID: Recovered Comment:Added based on recent COVID infection. 03/20/2024 05/15/2024 COVID: Suspected 05/15/2024 05/15/2024 05/16/2024 1:41 AM HUMIDIFIER ATTENDANT documented as of this encounter Care Teams Paper Cutting Machine Operator Relationship Specialty Start Date End Date Jomar Marino DO [address] [place] [id number] PCP - General Internal Medicine 03/10/24 documented as of this encounter
--- OUTSIDE RECORDS SUMMARY | 2024-05-19 13:54 | XMS_ITS | Encounter Summary ---
Author Organization [facility] Address [address] [place] [address] Phone Care Team Providers Care Flexographic Press Set Up Operator Name Role Phone Torres Boateng MD Primary Care Provider [phone] Satya Andrade MD Primary Care Provider + [phone] Torres Boateng MD Primary Care Provider +1-12 Satya Andrade MD Primary Care Provider + [phone] Satya Andrade MD Primary Care Provider + [phone] Torres Boateng MD Primary Care Provider +[phone] Torres Boateng MD Primary Care Provider +1-98 Satya Andrade MD Primary Care Provider + [phone] Torres Boateng MD Primary Care Provider +1-69 Satya Andrade MD Primary Care Provider + [phone] Torres Boateng MD Primary Care Provider +1-09 Satya Andrade MD Primary Care Provider + [phone] Torres Boateng MD Primary Care Provider +1-6 [...] Satya Andrade MD Primary Care Provider +1- [phone] Torres Boateng MD Primary Care Provider +1-6 Satya Andrade MD Primary Care Provider +1- Satya Andrade MD Primary Care Provider +1- Torres Boateng MD Primary Care Provider +1-6 Satya Andrade MD Primary Care Provider +1- [phone] Torres Boateng MD Primary Care Provider +1-6 [...] Satya Andrade MD Primary Care Provider +1- [phone] NedJomar barney Primary Care Provider +[phone] Encounter Details Date Type Department Care Team (Latest Contact Info) Description 03/14/2017 Orders Only [facility] CONVERSION Scanning, Provider Social History Tobacco Use Types Packs/Day Years Used Date Smoking Tobacco: Never Cigarettes 0.2 2 - 12/18/1998 Smokeless Tobacco: Never Alcohol Use Standard Drinks/Week Comments No 0 (1 standard drink = 0.6 oz pur e alcohol) Comments Unknown Sex and Gender Information Value Date Recorded Sex Assigned at Not on file Legal Sex Female 11:29 AM BLANKET FOLDER Gender Identity Not on file Sexual Orientation Not on file documented as of this encounter Plan of Treatment Not on file documented as of this encounter Procedures Procedure Name Priority Date/Time Associated Diagnosis Comments OBSTETRIC/GYNECOLOGY ULTRASONOGRAPHY REPORT 04/09/2017 11:39 AM BLANKET FOLDER OBSTETRIC/GYNECOLOGY ULTRASONOGRAPHY REPORT 03/14/2017 11:24 AM BLANKET FOLDER documented in this encounter Results * OBSTETRIC/GYNECOLOGY ULTRASONOGRAPHY REPORT (04/09/2017 11:39 AM BLANKET FOLDER) Anatomical Region Laterality Modality Ultrasound us Provider Scanning IMG OB US PROCEDURES Final Res ult * OBSTETRIC/GYNECOLOGY ULTRASONOGRAPHY REPORT (03/14/2017 11:24 AM BLANKET FOLDER) Anatomical Region Laterality Modality Ultrasound us Provider Scanning IMG OB US PROCEDURES Final Res ult documented in this encounter Visit Diagnoses Not on filedocumented in this encounter Additional Health Concerns Infection Onset Date Last Indicated Resolved Time COVID: Recovered 04/06/2021 05/31/2021 08/04/2021 3:05 AM CDT COVID: Suspected 12/18/2023 12/18/2023 12/18/2023 3:54 PM CDT COVID: Suspected 03/10/2024 03/10/2024 03/10/2024 11:12 AM BLANKET FOLDER COVID19 03/10/2024 03/10/2024 03/20/2024 3:05 AM BLANKET FOLDER COVID: Recovered Comment:Added based on recent COVID infection. 03/20/2024 05/15/2024 COVID: Suspected 05/15/2024 05/15/2024 05/15/2024 6:25 PM BLANKET FOLDER COVID: Suspected 05/15/2024 05/15/2024 05/16/2024 1:41 AM BLANKET FOLDER documented as of this encounter Care Teams Flexographic Press Set Up Operator Relationship Specialty Start Date End Date Torres Boateng MD [address] [place] [address] PCP - General 03/14/17 03/14/17 Satya Andrade MD [address] [place] [address] PCP - General 03/15/17 03/19/17 Torres Boateng MD [address] [place] [address] PCP - General 03/20/17 03/20/17 Satya Andrade MD [address] [place] [address] PCP - General 03/21/17 03/25/17 Satya Andrade MD [address] [place] [address] PCP - General 03/26/17 03/26/17 Torres Boateng MD [address] [place] [address] PCP - General 03/27/17 03/31/17 Torres Boateng MD [address] [place] [address] PCP - General 04/01/17 04/01/17 Satya Andrade MD [address] [place] [address] PCP - General 04/02/17 04/08/17 Torres Boateng MD [address] [facility] [address] [place] [address] PCP - General 04/09/17 04/09/17 Satya Andrade MD [address] [facility] [address] [place] [address] PCP - General 04/10/17 04/13/17 Torres Boateng MD [address] [facility] [address] [place] [address] PCP - General 04/14/17 04/15/17 Satya Andrade MD [address] [facility] [address] [place] [address] PCP - General 04/16/17 04/20/17 Torres Boateng MD [address] [place] [address] PCP - General 04/21/17 04/21/17 Satya Andrade MD [address] [place] [address] PCP - General 04/22/17 04/22/17 Torres Boateng MD [address] [facility] [address] [place] [address] PCP - General 04/23/17 04/23/17 Satya Andrade MD [address] [facility] [address] [place] [address] PCP - General 04/24/17 04/29/17 Torres Boateng MD [address] [facility] [address] [place] [address] PCP - General 04/30/17 04/30/17 Satya Andrade MD [address] [facility] [address] [place] [address] PCP - General 05/01/17 05/02/17 Satya Andrade MD [address] [facility] [address] [place] [address] PCP - General 05/03/17 05/04/17 Torres Boateng MD [address] [address] PCP - General 05/05/17 05/05/17 Torres Boateng MD [address] [facility] [address] [place] [address] PCP - General 05/06/17 05/06/17 Torres Boateng MD [address] [facility] [address] [place] [address] PCP - General 05/07/17 05/07/17 Satya Andrade MD [address] [address] PCP - General 05/08/17 05/09/17 Satya Andrade MD [address] [address] PCP - General 05/10/17 05/13/17 Satya Andrade MD [address] [address] PCP - General 05/14/17 05/15/17 Satya Andrade MD [address] [address] PCP - General 05/16/17 05/16/17 Satya Andrade MD [address] [address] PCP - General 05/17/17 05/20/17 Satya Andrade MD [address] [facility] [address] [place] [address] PCP - General 05/21/17 05/21/17 Torres Boateng MD [address] [address] PCP - General 05/22/17 05/22/17 Satya Andrade MD [address] [place] [address] PCP - General 05/23/17 05/23/17 Satya Andrade MD [facility] [address] [place] [address] PCP - General 05/24/17 05/27/17 Torres Boateng MD [address] [facility] [address] [place] [address] PCP - General 05/28/17 05/28/17 Satya Andrade MD [facility] [address] [facility] [address] [place] [address] PCP - General 05/29/17 05/30/17 Satya Andrade MD [facility] [address] [facility] [address] [place] [address] PCP - General 05/31/17 06/04/17 Satya Andrade MD [facility] [address] [facility] [address] [place] [address] PCP - General 06/05/17 06/05/17 Torres Boateng MD [address] [facility] [address] [place] [address] PCP - General 06/06/17 06/09/17 Satya Andrade MD [facility] [address] [facility] [address] [place] [address] PCP - General 06/10/17 06/10/17 Satya Andrade MD [address] [place] [address] PCP - General 06/11/17 06/16/17 Torres Boateng MD [address] [place] [address] PCP - General 06/17/17 06/17/17 Satya Andrade MD [address] [place] [address] PCP - General 06/18/17 06/18/17 Torres Boateng MD [address] [place] [address] PCP - General 06/19/17 06/19/17 Satya Andrade MD [address] [place] [address] PCP - General 06/20/17 07/01/17 Satya Andrade MD [address] [place] [address] PCP - General 07/02/17 07/03/17 Torres Boateng MD [address] [place] [address] PCP - General 07/04/17 07/08/17 Torres Boateng MD [address] [place] [address] PCP - General 07/09/17 07/09/17 Satya Andrade MD [address] [facility] [address] [place] [address] PCP - General 07/10/17 07/10/17 Torres Boateng MD [address] [facility] [address] [place] [address] PCP - General 07/11/17 07/14/17 Satya Andrade MD [address] [address] PCP - General 07/15/17 07/15/17 Torres Boateng MD [address] [address] PCP - General 07/16/17 07/16/17 Satya Andrade MD [address] [address] PCP - General 07/17/17 07/21/17 Torres Boateng MD [address] [address] PCP - General 07/22/17 07/22/17 Satya Andrade MD [address] [address] PCP - General 07/23/17 08/04/17 Torres Boateng MD [address] [address] PCP - General 08/05/17 08/05/17 Torres Boateng MD [address] [facility] [address] [place] [address] PCP - General 08/06/17 08/06/17 Satya Andrade MD [address] [facility] [address] [place] [address] PCP - General 08/07/17 08/18/17 Torres Boateng MD [address] [facility] [address] [place] [address] PCP - General 08/19/17 08/20/17 Torres Boateng MD [address] [facility] [address] [place] [address] PCP - General 08/21/17 08/21/17 Satya Andrade MD [facility] [address] [facility] [address] [place] [address] PCP - General 08/22/17 08/22/17 Torres Boateng MD [address] [facility] [address] [place] [address] PCP - General 08/23/17 08/26/17 Satya Andrade MD [address] [facility] [address] [place] [address] PCP - General 08/27/17 03/09/24 Jomar Marino DO [facility] [address] [facility] [address] [place] [address] PCP - General Internal Medicine 03/10/24 documented as of this encounter
--- OUTSIDE RECORDS SUMMARY | 2024-05-19 13:54 | XMS_ITS | Encounter Summary ---
Author Organization [facility] Address [address] [place] [address] Phone Care Team Providers Care Humidifier Operator Name Role Phone Torres Boateng MD Primary Care Provider +[phone]- [phone] Satya Andrade MD Primary Care Provider + [phone] Torres Boateng MD Primary Care Provider +[phone] Satya Andrade MD Primary Care Provider + [phone] Torres Boateng MD Primary Care Provider +[phone] Satya Andrade MD Primary Care Provider + [phone] Torres Boateng MD Primary Care Provider +[phone] Satya Andrade MD Primary Care Provider + [phone] Torres Boateng MD Primary Care Provider +[phone] Satya Andrade MD Primary Care Provider + [phone] Satya Andrade MD Primary Care Provider + [phone] Torres Boateng MD Primary Care Provider +[phone] Torres Boateng MD Primary Care Provider +1-6 [...] +1- Satya Andrade MD Primary Care Provider +1 Satya Andrade MD Primary Care Provider +1- Torres Boateng MD Primary Care Provider +1-6 Satay Andrade MD Primary Care Provider +1- Satya [...] +1-6 Torres Boateng MD Primary Care Provider +1- [phone] Satya Andrade MD Primary Care Provider +- [phone] Torres Boateng MD Primary Care Provider +[phone] Torres Boateng MD Primary Care Provider +1- [phone] Satya Andrade MD Primary Care Provider + [phone] Torres Boateng MD Primary Care Provider +1- [phone] Satya Andrade MD Primary Care Provider + [phone] Ned Jomar DO Primary Care Provider +[phone] Encounter Details Date Type Department Care Team (Latest Contact Info) Description 01/31/2017 Orders Only [facility] CONVERSION Scanning, Provider Social History Tobacco Use Types Packs/Day Years Used Date Smoking Tobacco: Former Cigarettes 0.2 2 0 12/18/1996 - 12/18/1998 Smokeless Tobacco: Never Alcohol Use Standard Drinks/Week Comments No 0 (1 standard drink = 0.6 oz pur e alcohol) Comments Unknown Sex and Gender Information Value Date Recorded Sex Assigned at Not on file Legal Sex Female 11:29 AM FIREWALL ENGINEER Gender Identity Not on file Sexual Orientation Not on file documented as of this encounter Plan of Treatment Not on file documented as of this encounter Procedures Procedure Name Priority Date/Time Associated Diagnosis Comments OBSTETRIC/GYNECOLOGY ULTRASONOGRAPHY REPORT 02/19/2017 10:33 AM FIREWALL ENGINEER OBSTETRIC/GYNECOLOGY ULTRASONOGRAPHY REPORT 01/31/2017 1:34 PM FIREWALL ENGINEER documented in this encounter Results * OBSTETRIC/GYNECOLOGY ULTRASONOGRAPHY REPORT (02/19/2017 10:33 AM FIREWALL ENGINEER) Anatomical Region Laterality Modality Ultrasound us Provider Scanning IMG OB US PROCEDURES Final Res ult * OBSTETRIC/GYNECOLOGY ULTRASONOGRAPHY REPORT (01/31/2017 1:34 PM FIREWALL ENGINEER) Anatomical Region Laterality Modality Ultrasound us Provider Scanning IMG OB US PROCEDURES Final Res ult documented in this encounter Visit Diagnoses Not on filedocumented in this encounter Additional Health Concerns Infection Onset Date Last Indicated Resolved Time COVID: Recovered 04/06/2021 05/31/2021 08/04/2021 3:05 AM CDT COVID: Suspected 12/18/2023 12/18/2023 12/18/2023 3:54 PM CDT COVID: Suspected 03/10/2024 03/10/2024 03/10/2024 11:12 AM FIREWALL ENGINEER COVID19 03/10/2024 03/10/2024 03/20/2024 3:05 AM FIREWALL ENGINEER COVID: Recovered Comment:Added based on recent COVID infection. 03/20/2024 05/15/2024 COVID: Suspected 05/15/2024 05/15/2024 05/15/2024 6:25 PM FIREWALL ENGINEER COVID: Suspected 05/15/2024 05/15/2024 05/16/2024 1:41 AM FIREWALL ENGINEER documented as of this encounter Care Teams Humidifier Operator Relationship Specialty Start Date End Date Torres Boateng MD [address] [address] PCP - General 01/31/17 01/31/17 Satya Andrade MD [address] [facility] [address] [address] PCP - General 02/01/17 02/16/17 Torres Boateng MD [address] [facility] [address] [address] PCP - General 02/17/17 02/18/17 Satya Andrade MD [address] [address] PCP - General 02/19/17 02/24/17 Torres Boateng MD [address] [address] PCP - General 02/25/17 03/12/17 Satya Andarde MD [address] [facility] [address] [place] [address] PCP - General 03/13/17 03/13/17 Torres Boateng MD [address] [facility] [address] [place] [address] PCP - General 03/14/17 03/14/17 Satya Andrade MD [address] [address] PCP - General 03/15/17 03/19/17 Torres Boateng MD [address] [address] PCP - General 03/20/17 03/20/17 Satya Andrade MD [address] [facility] [address] [place] [address] PCP - General 03/21/17 03/25/17 Satya Andrade MD [address] [facility] [address] [place] [address] PCP - General 03/26/17 03/26/17 Torres Boateng MD [address] [facility] [address] [place] [address] PCP - General 03/27/17 03/31/17 Torres Boateng MD [address] [place] [address] PCP - General 04/01/17 04/01/17 Satya Andrade MD [address] [place] [address] PCP - General 04/02/17 04/08/17 Torres Boateng MD [address] [facility] [address] [place] [address] PCP - General 04/09/17 04/09/17 Satya Andrade MD [address] [place] [address] PCP - General 04/10/17 04/13/17 Torres Boateng MD [address] [facility] [address] [place] [address] PCP - General 04/14/17 04/15/17 Satya Andrade MD [address] [facility] [address] [place] [address] PCP - General 04/16/17 04/20/17 Torres Boateng MD [address] [place] [address] PCP - General 04/21/17 04/21/17 Satya Andrade MD [address] [place] [address] PCP - General 04/22/17 04/22/17 Torres Boateng MD [address] [place] [address] PCP - General 04/23/17 04/23/17 Satya Andrade MD [address] [place] [address] PCP - General 04/24/17 04/29/17 Torres Boateng MD [address] [facility] [address] [place] [address] PCP - General 04/30/17 04/30/17 Satya Andrade MD [address] [place] [address] PCP - General 05/01/17 05/02/17 Satya Andrade MD [address] [place] [address] PCP - General 05/03/17 05/04/17 Torres Boateng MD [address] [facility] [address] [place] [address] PCP - General 05/05/17 05/05/17 Torres Boateng MD [address] [place] [address] PCP - General 05/06/17 05/06/17 Torres Boateng MD [address] [place] [address] PCP - General 05/07/17 05/07/17 Satya Andrade MD [address] [address] PCP - General 05/08/17 05/09/17 Satya Andrade MD [address] [facility] [address] [place] [address] PCP - General 05/10/17 05/13/17 Satya Andrade MD [address] [address] PCP - General 05/14/17 05/15/17 Satya Andrade MD [address] [address] PCP - General 05/16/17 05/16/17 Satya Andrade MD [address] [address] PCP - General 05/17/17 05/20/17 Satya Andrade MD [address] [address] PCP - General 05/21/17 05/21/17 Torres Boateng MD [address] [address] PCP - General 05/22/17 05/22/17 Satya Andrade MD [address] [address] PCP - General 05/23/17 05/23/17 Satya Andrade MD [address] [address] PCP - General 05/24/17 05/27/17 Torres Boateng MD [address] [address] PCP - General 05/28/17 05/28/17 Satya Andrade MD [address] [address] PCP - General 05/29/17 05/30/17 Satya Andrade MD [address] [address] PCP - General 05/31/17 06/04/17 Satya Andrade MD [facility] [address] [address] PCP - General 06/05/17 06/05/17 Torres Boateng MD [address] [address] PCP - General 06/06/17 06/09/17 Satya Andrade MD [address] [address] PCP - General 06/10/17 06/10/17 Satya Andrade MD [address] [place] [address] PCP - General 06/11/17 06/16/17 Torres Boateng MD [address] [place] [address] PCP - General 06/17/17 06/17/17 Satya Andrade MD [address] [place] [address] PCP - General 06/18/17 06/18/17 Torres Boateng MD [address] [facility] [address] [place] [address] PCP - General 06/19/17 06/19/17 Satya Andrade MD [address] [place] [address] PCP - General 06/20/17 07/01/17 Satya Andrade MD [address] [place] [address] PCP - General 07/02/17 07/03/17 Torres Boateng MD [address] [place] [address] PCP - General 07/04/17 07/08/17 Torres Boateng MD [address] [place] [address] PCP - General 07/09/17 07/09/17 Satya Andrade MD [address] [facility] [address] [place] [address] PCP - General 07/10/17 07/10/17 Torres Boateng MD [address] [facility] [address] [place] [address] PCP - General 07/11/17 07/14/17 Satya Andrade MD [address] [facility] [address] [place] [address] PCP - General 07/15/17 07/15/17 Torres Boateng MD [address] [address] PCP - General 07/16/17 07/16/17 Satya Andrade MD [address] [facility] [address] [place] [address] PCP - General 07/17/17 07/21/17 Torres Boateng MD [address] [address] PCP - General 07/22/17 07/22/17 Satya Andrade MD [address] [facility] [address] [place] [address] PCP - General 07/23/17 08/04/17 Torres Boateng MD [address] [facility] [address] [place] [address] PCP - General 08/05/17 08/05/17 Torres Boateng MD [address] [facility] [address] [place] [address] PCP - General 08/06/17 08/06/17 Satya Andrade MD [address] [facility] [address] [place] [address] PCP - General 08/07/17 08/18/17 Torres Boateng MD [address] [facility] [address] [place] [address] PCP - General 08/19/17 08/20/17 Torres Boateng MD [address] [facility] [address] [place] [address] PCP - General 08/21/17 08/21/17 Satya Andrade MD [address] [facility] [address] [place] [address] PCP - General 08/22/17 08/22/17 Torres Boateng MD [address] [facility] [address] [place] [address] PCP - General 08/23/17 08/26/17 Satya Andrade MD [address] [facility] [address] [place] [address] PCP - General 08/27/17 03/09/24 Jomar Marino DO [address] [facility] [address] [place] [address] PCP - General Internal Medicine 03/10/24 documented as of this encounter
--- OUTSIDE RECORDS SUMMARY | 2024-05-19 13:54 | XMS_ITS | Clinical Summary ---
Author Organization [facility] Address [address] [place] [address] Care Team Providers Care Form Carpenter Name Role Phone Jomar Marino DO Primary Care Provider [phone] Allergies Active Allergy Reactions Criticality Noted Date Comments Ciprofloxacin Anaphylaxis High 06/28/2017 Alpine Other (See comments) Low 11/06/2017 It look [...] (11/06/2017): Added automatically from request for surgery [id number] Non-healing surgical wound 07/23/2017 1 04/22/2017 Assessment & Plan (10/30/2017 2:09 PM CDT): The patient, her family member, And discussed the possible need for general surgery in this case. Will communicate with on surgery date so that all team members will be available if necessary. Encounters Date Type Department Care Team Description 05/16/2024 Results Follow-Up [facility] at [address] [phone] Marlen Merritt PA 05/15/2024 6:23 PM BOOKMOBILE CLERK - 05/15/2024 11:59 PM BOOKMOBILE CLERK Hospital Encounter [address] [address] Acute viral syndrome Discharge Disposition: Discharge to home or self care 05/15/2024 6:00 PM BOOKMOBILE CLERK Office Visit [facility] at [address] [phone] Amalia Jones NP Acute viral syndrome (Primary Dx) 03/12/[address] [facility] at [address] [phone] Barbara Villaseñor NP 03/10/2024 11:39 AM BOOKMOBILE CLERK - 03/10/2024 11:59 PM BOOKMOBILE CLERK Hospital Encounter [address] [address] Sore throat Discharge Disposition: Discharge to home or self care 03/10/2024 10:45 AM BOOKMOBILE CLERK Office Visit [facility] at [address] [phone] Kimberley Alexandra NP Sore throat (Primary Dx); COVID-19 from Last 3 Months Immunizations Immunization Administration Dates Next Due Influenza, Quadrivalent, Rec ombinant, Egg Free, Preservative Free, Intramuscular 01/13/2021 Influenza, Quadrivalent, Spl it, Preservative Free, Intramuscular 12/31/2019,01/15/2017,01/15/2017 Tdap 04/23/2017,04/25/2016 Surgical History Surgery Date Site/Laterality Comments D&C FIRST TRIMESTER / TX INCOMPLETE / MISSED / SEPTIC / INDUCED 03/25/2017 - 03/24/2018 GASTRIC BYPASS 03/25/2013 - 04/24/2013 SECTION 06/03/2017 VENTRAL HERNIA REPAIR 10/23/2017 - 11/22/2017 panniculectomy OTHER SURGICAL HISTORY 07/23/2018 - 08/22/2018 monsplasty TONSILLECTOMY/ADENOIDECTOM Y 1990s EXAMINATION UNDER ANESTHESIA 06/05/2021 Examination under anesthesia with injection of 100 units of Botox Medical History Medical History Date Comments Hypertension Thyroid disease Hyperlipidemia Anemia Asthma PCOD (polycystic ovarian disease) Non-healing surgical wound 05/2017 Fibroid Fibroid Tumor ou tside of Uterus History of transfusion PONV (postoperative nausea and vomiting) very mild nausea Family History Medical History Relation Name Comments Diabetes Father Heart disease Father Hyperlipidemia Father Hypertension Father Heart failure Maternal Grandfather Diabetes Mother Hyperlipidemia Mother Hypertension Mother Heart disease Paternal Grandfather Hyperlipidemia Sister Hypertension Sister Anesthesia problems Neg Hx Malig Hyperthermia Neg Hx Pseudochol deficiency Neg Hx Relation Name Status Comments Father Alive Maternal Grandfather (Age 78) Mother Alive Paternal Grandfather Sister Alive Social History Tobacco Use Types Packs/Day Years [...] on file Legal Sex Female 11:29 AM BOOKMOBILE CLERK Gender Identity Not on file Sexual Orientation Not on file Obstetrics History Last Filed Vital Signs Vital Sign Reading Time Taken Comments Blood Pressure 133/88 05/15/2024 6:03 PM BOOKMOBILE CLERK Pulse 88 05/15/2024 6:03 PM BOOKMOBILE CLERK Temperature 36.5 C (97.7 F) 05/15/2024 6:03 PM BOOKMOBILE CLERK Respiratory Rate 20 05/15/2024 6:03 PM BOOKMOBILE CLERK Oxygen Saturation 96% 05/15/2024 6:03 PM BOOKMOBILE CLERK Inhaled Oxygen Concentration - - Weight 129.3 kg (285 lb) 05/15/2024 6:03 PM BOOKMOBILE CLERK Height 172.7 cm (5' 8 ) 12/18/2023 3:31 PM CDT Body Mass Index 43.33 12/18/2023 3:31 PM CDT Plan of Treatment Health Maintenance Due Date Last Done Comments Breast Cancer Screening-Mammogram 1980 Cervical Cancer Screening 1980 Depression Screening 1980 Hepatitis C Screening 1980 Varicella Vaccines (1 of 2 - 13+ 2-dose series) 1993 Hepatitis B Screening 1998 Regular Well Visit/Exam 18-64 1998 Covid-19 Vaccine () 11/24/2023 07/27/2020, 07/06/2020 Influenza Vaccine (#1) 2023 , 12/31/2019, 01/15/2017, Additional history exists DTaP/Tdap/Td Vaccine (3 - Td or Tdap) 04/23/2027 04/23/2017, 04/25/2016 HPV Vaccines Aged Out No longer eligi ble based on patient's age to complete this topic Pneumococcal vaccine <65 Aged Out No longer eligible based on patient's age to complete this topic Medical Devices Implanted Type Area Certified Anesthesiologist Assistant Device Identifier Shelf Expiration Date Model / Serial / Lot Ph[employer] Mesh Implanted:Qty: 1 on 11/11/2017 by Kerwin Bennett III, MD at [facility] N/A: Abdomen [employer] [id number] 03/21/2019 / / [id number] Procedures Procedure Name Priority Date/Time Associated Diagnosis Comments POC INFLUENZA A/B, COVID-19 ANTIGEN Routine 05/15/2024 6:23 PM BOOKMOBILE CLERK Acute viral syndrome THROAT CULTURE Routine 05/15/2024 6:23 PM BOOKMOBILE CLERK Acute viral syndrome INFLUENZA A/B, RSV, AND COVID-19 PCR Routine 05/15/2024 6:23 PM BOOKMOBILE CLERK Acute viral syndrome POCT RAPID STREP Routine 05/15/2024 6:18 PM BOOKMOBILE CLERK Acute viral syndrome POCT RAPID STREP Routine 03/10/2024 11:1 7 AM BOOKMOBILE CLERK Sore throat POC INFLUENZA A/B, COVID-19 ANTIGEN Routine 03/10/2024 11:12 AM BOOKMOBILE CLERK COVID-19 THROAT CULTURE Routine 03/10/2024 9:00 AM BOOKMOBILE CLERK Sore throat from Last 3 Months Results * POC Influenza A/B, COVID-19 antigen (05/15/2024 6:23 PM BOOKMOBILE CLERK) Influenza A Ag, POC Negative Negative [facility] Influenza B Ag, POC Negative Negative [facility] COVID-19 Ag POC Presumptive Negative Presumptive Negative, Invalid [facility] Nasal 05/15/2024 6:23 PM BOOKMOBILE CLERK Amalia Jones CONTINUING EDUCATION SPECIALIST POINT OF CARE TEST ORDERABLES Final Result Performing Organization Address [facility]/ZIP Co de Phone Number [facility] [address] [place] [address] * Influenza A/B, RSV, and COVID-19 PCR Nasopharyngeal (05/15/2024 6:23 PM BOOKMOBILE CLERK) COVID-19 RNA Negative Negative Influenza A RNA Negative Negative [facility] Influenza B RNA Negative Negative [facility] RSV RNA Negative Negative [facility] Comment: Interpretive data: Testing performed by [facility]. This test is performed using the [employer] Xpert Xpress CoV-2/Flu/RSV plus assay. This is a multiplex, real-time reverse transcriptase PCR assay intended for the qualitative detection of nucleic acid from SARS-CoV-2, influenza A, influenza B, and respiratory syncytial virus. This assay has been cleared by the [place] Food and Drug administration. The performance characteristics have been verified by the [facility]. Results must be considered in the clinical context, and a negative result does not rule out infection. Interpretive Data last revised 2023 Nasopharyngeal 05/15/2024 6: 23 PM BOOKMOBILE CLERK 05/16/2024 12:43 AM BOOKMOBILE CLERK Narrative [facility] - 05/16/2024 1:40 AM BOOKMOBILE CLERK Is the Patient experiencing symptoms consistent with COVID?->Yes Amalia Jones NP LAB MICROBIOLOGY - GENERAL ORD ERABLES Final Result [facility] [address] Department [place] [address] * Throat culture Throat (05/15/2024 6:23 PM BOOKMOBILE CLERK) Report Final Report: No growth of pathogens. Comment:Testing performed by : [facility], [address] [facility] [place]., [address] Throat 05/15/2024 6:23 PM BOOKMOBILE CLERK 05/16/2024 5:32 AM BOOKMOBILE CLERK Narrative [facility] - 05/17/2024 7:03 AM BOOKMOBILE CLERK Testing performed by [facility] ([phone]). Result [facility] Amalia Jones NP LAB MICROBIOLOGY - GENERAL ORD ERABLES Final Result [facility] [address] Department [place] [address] * POCT rapid strep A (05/15/2024 6:18 PM BOOKMOBILE CLERK) Rapid Strep A, POC Negative Negative Swab 05/15/2024 6:18 PM BOOKMOBILE CLERK Result [facility] Amalia Jones NP POINT OF CARE TEST ORDERABLES Final Result * POCT rapid strep A (03/10/2024 11:17 AM BOOKMOBILE CLERK) Rapid Strep A, POC Negative Negative Swab 03/10/2024 11:1 7 AM BOOKMOBILE CLERK Result [facility] us Kimberley lAexandra CONTINUING EDUCATION SPECIALIST POINT OF CARE TEST ORDERAB LES Final Result * (ABNORMAL) POC Influenza A/B, COVID-19 antigen (03/10/2024 11:12 AM BOOKMOBILE CLERK) Influenza A Ag, POC Negative Negative [facility] Influenza B Ag, POC Negative Negative [facility] COVID-19 Ag POC Positive(A) Presumptive Negative, Invalid [facility] Nasal 03/10/2024 11:1 2 AM BOOKMOBILE CLERK us Kimberley Alexandra CONTINUING EDUCATION SPECIALIST POINT OF CARE TEST ORDERAB LES Final Result [facility] [address] [place] [address] * Throat culture Throat (03/10/2024 9:00 AM BOOKMOBILE CLERK) Report Final Report: No growth of pathogens. Comment:Testing performed by : [facility], [address] [place]., [address] Throat 03/10/2024 9:00 AM BOOKMOBILE CLERK 03/10/2024 6:02 PM BOOKMOBILE CLERK Narrative [facility]ARY - 03/11/2024 1:01 PM BOOKMOBILE CLERK Testing performed by [facility] ([phone]). us Kimberley Alexandra NP LAB MICROBIOLOGY - GENERAL ORDERABLES Final Result [facility] [address] Department [place] [address] from Last 3 Months Additional Health Concerns Infection Onset Date Last Indicated COVID: Recovered Comment:Added based on recent COVID infection. 03/20/2024 025 Insurance * Guarantor: Lakeshia Reyez Account Type Relation to Patient Date of Phone Billing Address Personal/Family Self [address] [place], [place] [id number] [place] [address] [employer] * Guarantor: Lakeshia Reyez Account Type Relation to Patient Date of Phone Billing Address Personal/Family Self 1980 [address] [place] [address] [facility] MEDICARE * Guarantor: Lakeshia Reyez Account Type Relation to Patient Date of Phone Billing Address Personal/Family Self 1980 [address] [place] [address] MEDICARE MEDICARE [facility] Address: [facility] [address] [place] [address] [facility] * Guarantor: Lakeshia Reyez Account Type Relation to Patient Date of Phone Billing Address Personal/Family Self 1980 [address] [address] [facility] [place] Advance Directives For more information, please contact: [phone] * Full Code (Latest Code Status on File) Date Activated Date Inactivated Comments 07/24/2018 8:49 PM 07/25/2018 4:15 PM * Full Code Date Activated Date Inactivated Comments 11/25/2017 10:05 PM 11/28/2017 12:40 PM * Full Code Date Activated Date Inactivated Comments 11/11/2017 6:17 PM 11/14/2017 2:47 PM Care Teams Form Carpenter Relationship Specialty Start Date End Date Jomar Marino DO [address] [address] PCP - General Internal Medicine 03/10/24
--- OUTSIDE RECORDS SUMMARY | 2024-05-19 13:55 | XMS_ITS ---
Author Organization [facility] [employer] Address [address] [place] [address] Care Team Providers Care Retail Analyst Name Role Phone Ned Jomar FLOWERS Primary Care Provider Unavailgamal giselle GitaYojana Unavailable [phone] Allergies Allergen (clinical drug ingredient) Drug/Non Drug Allergy documented on EMR Reaction Allergy Type Onset Date Status Non-steroidal anti-inflammatory agent (FN) NSAIDS (NON-STEROIDAL ANTI-INFLAMMATORY DRUG) (uncoded) Unknown Allergy 06/24/2023 Active Ciprofloxacin Unknown Drug Allergy 06/24/2023 Ac tive REASON FOR VISIT follow up Medications Medication SIG (Take, Route, Frequency, Duration) Notes Start Date End Date Status Ofloxacin 0.30% Ophthalmic 06/24/2023 Un known Atomoxetine HCl 80 MG 1 capsule Oral Onc e a day for 90 days Active Escitalopram Oxalate 20 MG 1 tablet Oral Once a day for 90 days Active Pantoprazole Sodium 40 MG Oral 06/24/2023 Unknown Metoprolol Tartrate 25 MG Oral 06/24/2023 Unknown Ergocalciferol 1.25 MG (36424 UT) Oral 06/24/2023 Unknown Ferrous Sulfate 325 (65 Fe) MG Oral 06/24/2023 Unknown Levothyroxine Sodium 50 MCG Oral 06/24/2023 Unknown Social History Tobacco Use: Social History Observation Description Date Details (start date - stop date) Former Smoker 03/25/1996 - 03/25/1998 Sex Assigned At : Social History Observation Description Sex Assigned At Female Tobacco Control (Standard) Question Answer Notes Tobacco use: Former smoker When did you start smoking? 03/25/1996 When did you stop smoking? 03/25/1998 How long has it been since you last smoked? Jackelin ter than 10 years AUDIT-C (Standard) Question Answer Notes Did you have a drink containing alcohol in the p ast year? No Encounters Encounter Location Date Provider Diagnosis [facility] [employer] [address] [facility] [address] [place] [address] 12/24/2023 Yojana Pelayo Generalized anxiety disorder F41.1 ; Major depressive disorder, recurrent severe without psychotic features F33.2 ; Attention-deficit hyperactivity disorder, combined type F90.2 and Post-traumatic stress disorder, chronic F43.12 Assessments Encounter Date Diagnosis (ICD Code) Assessment Notes Treatment Notes Treatment Clinical Notes Section Notes 12/24/2023 Generalized anxiety disorder (ICD-10 - F41.1) 12/24/2023 Major depressive disorder, recurrent severe without psychotic features (ICD-10 - F33.2) Common side effects to SSRI medications include headaches, dry mouth/eye, GI upset (including indigestion, nausea, diarrhea), sleeping problems (insomnia or drowsiness), decreased libido, blurred vision, dizziness. Generally, side effects will subside or lessen with time and are common during drug initiation and dose changes. If they persist please contact the office. 12/24/2023 Attention-deficit hyperactivity disorder, combined type (ICD-10 - F90.2) Discussed risks/benefits/alt ernatives to atomoxetine, including GI side effects, weight loss, irritability, constipation, sexual dysfunction, increase in blood pressure and liver damage. Patient denies any h/o cardiovascular disease, including hypertension, tachyarrhythmias. 12/24/2023 Post-traumatic stress disorder, chronic (ICD-10 - F43.12) 12/24/2023 Other Discontinue Trazodone due to ineffectiveness. Patient educated on all medications including potential benefits, side effects, risks. Educated on proper dosing schedule and importance of compliance. Plan Of Treatment Medication Medication Name Sig Start Date Stop Date Notes Atomoxetine HCl 80 MG 1 capsule Oral Onc e a day for 90 days traZODone HCl 50 MG 1 tablet at bedtime as needed Oral Once a day for 90 days Escitalopram Oxalate 20 MG 1 tablet Oral Once a day for 90 days Treatment Notes Assessment Notes Major depressive disorder, r ecurrent severe without psychotic features Common side effects to SSRI medications include headaches, dry mouth/eye, GI upset (including indigestion, nausea, diarrhea), sleeping problems (insomnia or drowsiness), decreased libido, blurred vision, dizziness. Generally, side effects will subside or lessen with time and are common during drug initiation and dose changes. If they persist please contact the office. Attention-deficit hyperactiv ity disorder, combined type Discussed risks/benefits/alternatives to atomoxetine, including GI side effects, weight loss, irritability, constipation, sexual dysfunction, increase in blood pressure and liver damage. Patient denies any h/o cardiovascular disease, including hypertension, tachyarrhythmias. Other Discontinue Trazodone due to ineffectiveness. Patient educated on all medications including potential benefits, side effects, risks. Educated on proper dosing schedule and importance of compliance. Next Appt Details Follow Up: 4 Months, Reason: medication follow up Provider Name:Yojana Pelayo, 09/08/2024 03:30:00 PM, [facility] [address] [facility], [address], [address], Progress Notes * NILE COOKB:[birth year] (43 yo F)Acc No.[id number]:12/24/2023 Patient: Tina RAIMUNDO CABA Provider: FARZAD HOLTHNP :1980 A ge:43 Y S ex:Female Date:12/24/2023 Address:[address] [place] [address] [id number] Subjective: * Chief Complaints: * 1 . Follow up. * HPI: H istory of Presenting Problem: Anxiety w ith excessive worry, which has been long-standing, aggravated by, difficult work, financial and/or relationship issues, and relieved by, compliance with medication therapy. D epression R ates depression 4/10 with 10 being most severe. Denies SI. . M ood lability N o hx jaky. P sychosis N o hx psychosis . S uicidal ideation D enies. A DHD S table. Here for medication follow up. No medication changes made last apt. Reports she is doing well. The custody situation has worked out, he has supervised visits by her every other week. Happy with how this turned out. Reports I am still functioning and managing . She has stress between caring for her sister and mother. Sister continues to be argumentative and agressive at times. Overall depression is stable, not feeling hopeless or helpless. No suicidal ideation. Anxiety is stable, no panic attacks. Sleep is good, getting about 7-8 hours nightly. Energy is fair. Appetite is good. D epression Screening: SELENA-7 (2018 Edition) F eeling nervous, anxious, or on edge?Not at all, N ot being able to stop or control worrying N ot at all, W orrying too much about different things S everal days, T rouble relaxing N ot at all, B eing so restless that it is hard to sit still N ot at all, B ecoming easily annoyed or irritable?Several days, F eeling afraid as if something awful might happen N ot at all. C [place]-Suicide Severity Rating Scale: Suicide Risk (CSRS-screener) i n the past one month Have you wished you were or wished you could go to sleep and not wake up? N o, i n the past one month Have you actually had any thoughts of killing yourself? N o, H ave you ever done anything, started to do anything, or prepared to do anything to end your life? N o. D epression screening: PHQ-9 L ittle interest or pleasure in doing things N ot at all, F eeling down, depressed, or hopeless N ot at all, T rouble falling or staying asleep, or sleeping too much N ot at all, F eeling tired or having little energy M ore than half the days, P oor appetite or overeating S everal days, F eeling bad about yourself or that you are a failure, or have let yourself or your family down N ot at all, T rouble concentrating on things, such as reading the newspaper or watching television N ot at all, M oving or speaking so slowly that other people could have noticed; or the opposite, being so fidgety or restless that you have been moving around a lot more than usual N ot at all, T houghts that you would be better off or of hurting yourself in some way N ot at all, T otal Score 3 , I nterpretation M inimal Depression. I ntervention D epression Screening Findings N egative, F ollow-Up for Depression M ental health care management, S uicide Risk Assessment Performed cssr negative , A dditional Evaluation for Depression P sychiatric interview and evaluation, N javier of the standardized tool used for adult depression screening: [facility] (PHQ-9). * ROS: P sychiatric: Patient denies a uditory / visual hallucinations, delusions, suicidal thoughts, jaky, psychosis, irritability, panic attacks, depressed mood, anxiety. Dariela Saldivar [facility] for details. * Medical History: P roblems: Attention deficit hyperactivity disorder, combined type, Chronic post-traumatic stress disorder, Essential hypertension, Generalized anxiety disorder, History of bypass of stomach, Hypothyroidism, Mild recurrent major depression, Severe recurrent major depression without psychotic features, Uterine fibroid polyp, ,. * Surgical History: A ny surgical history , Tonsilectomy/adenoids 03/25/1989, Sinus surgery 03/25/1997, Gastric bypass for obesity (41698) 03/25/2013, Cosmetic surgery 03/25/2017, section ([id number]) 03/25/2017, Reconstructive surgery 03/25/2017. * Family History: F ather: Morbid obesity . M aternal Uncle: Morbid obesity , Diabetes mellitus . P aternal Uncle: Morbid obesity , Diabetes mellitus . M other: Anxiety disorder , Depressive disorder , Morbid obesity , Substance abuse , Diabetes mellitus , Hypothyroidism . P aternal Grandfather: Family history of cancer . P aternal Grandmother: Family history of cancer . M aternal Grandfather: Family history of cancer . M aternal Grandmother: Family history of cancer . S ister: Morbid obesity , Hypothyroidism . * Social History: T obacco Use: T obacco Control (Standard) T obacco use: F ormer smoker, W hen did you start smoking? 0 03/25/1996, W hen did you stop smoking? 0 03/25/1998, H ow long has it been since you last smoked? G reater than 10 years. M igrated Social History: M igrated Social History: Alcohol Intake: None 04/28/2020,Tobacco Years: Former smoker 08/04/2020. D rug/Alcohol: A ROSA MARIA-C (Standard) D id you have a drink containing alcohol in the past year? N o.? * Medications: T aking Escitalopram Oxalate 20 MG Tablet 1 tablet Oral Once a day , Taking Atomoxetine HCl 80 MG Capsule 1 capsule Oral Once a day , Unknown Levothyroxine Sodium 50 MCG Tablet Oral , Unknown Ferrous Sulfate 325 (65 Fe) MG Tablet Oral , Unknown Ergocalciferol 1.25 MG (15411 UT) Capsule Oral , Unknown Metoprolol Tartrate 25 MG Tablet Oral , Unknown Ofloxacin 0.30% Solution Ophthalmic , Unknown Pantoprazole Sodium 40 MG Tablet Delayed Release Oral , Medication List reviewed and reconciled with the patient * Allergies: N SAIDS (NON-STEROIDAL ANTI-INFLAMMATORY DRUG): Allergy - Onset Date 06/24/2023, Ciprofloxacin: Allergy - Onset Date 06/24/2023. Objective: * Vitals: * Examination: P sychiatry: Appearance: w ell-groomed. Abnormal body movements: n one. Affect / mood: a ppropriate. Attention: g ood. Attitude: c ooperative. Homicidal ideation: n one. Suicidal ideation: n one. Degree of awareness of surroundings: w ithin normal limits.? Delusions: n o. Hallucinations: n o. Insight: g ood. Judgement: g ood. Orientation: a wake, alert and oriented x 3. Perceptual disorders: n o perceptual disorder noted. Psychomotor activity: w ithin normal range. Speech / language: n ormal rate, volume, and articulation (RVR). Thought content: a ppropriate. Thought process: i ntact. Assessment: * Assessment: 1. G eneralized anxiety disorder - F41.1 (Primary) 2 . M ajor depressive disorder, recurrent severe without psychotic features - F33.2 3 . A ttention-deficit hyperactivity disorder, combined type - F90.2 4 . P ost-traumatic stress disorder, chronic - F43.12 Plan: * Treatment: 2. M ajor depressive disorder, recurrent severe without psychotic features Refill Escitalopram Oxalate Tablet, 20 MG, 1 tablet, Oral, Once a day, 90 days, 90 Tablet, Refills 1. Notes: Common side effects to SSRI medications include headaches, dry mouth/eye, GI upset (including indigestion, nausea, diarrhea), sleeping problems (insomnia or drowsiness), decreased libido, blurred vision, dizziness. Generally, side effects will subside or lessen with time and are common during drug initiation and dose changes. If they persist please contact the office. 3. A ttention-deficit hyperactivity disorder, combined type Refill Atomoxetine HCl Capsule, 80 MG, 1 capsule, Oral, Once a day, 90 days, 90 Capsule, Refills 1.? Notes: Discussed risks/benefits/alternatives to atomoxetine, including GI side effects, weight loss, irritability, constipation, sexual dysfunction, increase in blood pressure and liver damage. Patient denies any h/o cardiovascular disease, including hypertension, tachyarrhythmias. 4. O thers Notes: Discontinue Trazodone due to ineffectiveness. Patient educated on all medications including potential benefits, side effects, risks. Educated on proper dosing schedule and importance of compliance. * Procedure Codes: 9 6127 BEHAV ASSMT W/SCORE & DOCD/STAND INSTRUMENT, G2211 VISIT COMPLEXITY INHERENT TO ONGOING CARE RELATED TO A PATIENT'S SINGLE, SERIOUS CONDITION OR A COMPLEX CONDITION, G8431 CLIN DEPRESSION SCREEN DOC * Preventive Medicine: Screenings: D epression screening H ave you had a recent depression screening??Yes, D ate of depression screenin . * Follow Up: 4 Months (Reason: medication follow up) * Billing Information: * Visit Code: 30939 OFFICE OUTPATIENT VISIT 25 MINUTES DETAILED HISTORY AND EXAM/MODERATE MEDICAL DECISION MAKING. * Procedure Codes: 43541 BEHAV ASSMT W/SCORE & DOCD/STAND INSTRUMENT. G2211 VISIT COMPLEXITY INHERENT TO ONGOING CARE RELATED TO A PATIENT'S SINGLE, SERIOUS CONDITION OR A COMPLEX CONDITION. G8431 CLIN DEPRESSION SCREEN DOC. * Sign off status: Completed true * Provider: DANETTE HOLT Date: Generated for Sujatha dockery/Delores/Sherly on: 05/19/2024 01:55 PM ART THERAPY SPECIALIST History and Physical Notes * HPI (History of Present Illness) Category Sub-Category Detail Notes Category Not es History of Presenting Problem Anxiety with excessive worry, which has been long-standing, aggravated by, difficult work, financial and/or relationship issues, and relieved by, compliance with medication therapy Here for medication follow up. No medication changes made last apt. Reports she is doing well. The custody situation has worked out, he has supervised visits by her every other week. Happy with how this turned out. Reports I am still functioning and managing . She has stress between caring for her sister and mother. Sister continues to be argumentative and agressive at times. Overall depression is stable, not feeling hopeless or helpless. No suicidal ideation. Anxiety is stable, no panic attacks. Sleep is good, getting about 7-8 hours nightly. Energy is fair. Appetite is good. Depression Rates depression 06/23 0 with 10 being most severe. Denies SI. Suicidal ideation Denies Psychosis No hx psychosis Mood lability No hx jaky ADHD Stable Depression screening PHQ-9 Little inte rest or pleasure in doing things: Not at all Feeling down, depressed, or hopeless: No t at all Trouble falling or staying asleep, or sl eeping too much: Not at all Feeling tired or having little energy: M ore than half the days Poor appetite or overeating: Several day s Feeling bad about yourself o r that you are a failure, or have let yourself or your family down: Not at all Trouble concentrating on thi ngs, such as reading the newspaper or watching television: Not at all Moving or speaking so slowly that other people could have noticed; or the opposite, being so fidgety or restless that you have been moving around a lot more than usual: Not at all Thoughts that you would be b nuvia off or of hurting yourself in some way: Not at all Total Score: 3 Interpretation: Minimal Depression Intervention Depression Screening Findings: N egative Follow-Up for Depression: Mental health care management Suicide Risk Assessment Performed: cssr negative Additional Evaluation for De pression: Psychiatric interview and evaluation Name of the standardized too l used for adult depression screening:: Patient Health Questionnaire (PHQ-9) Depression Screening SELENA-7 (2018 Edition) Feelin g nervous, anxious, or on edge: Not at all Not being able to stop or control worryi ng: Not at all Worrying too much about different things : Several days Trouble relaxing: Not at all Being so restless that it is hard to sit still: Not at all Becoming easily annoyed or irritable: Se veral days Feeling afraid as if something awful ellie ht happen: Not at all [place]-Suicide Severity Rating Scale Suicide Risk (CSRS-screener) in the past one month Have you wished you were or wished you could go to sleep and not wake up?: No in the past one month Have y ou actually had any thoughts of killing yourself?: No Have you ever done anything, started to do anything, or prepared to do anything to end your life?: No Examination Category Sub-Category Detail Notes Category Not es Psychiatry Appearance: well-groomed Attitude: cooperative Psychomotor activity: within normal rang e Abnormal body movements: none Attention: good Degree of awareness of surroundings: wit hin normal limits Orientation: awake, alert and kaushal ented x 3 Affect / mood: appropriate Speech / language: normal rate, volume, and articulation (RVR) Insight: good Judgement: good Thought process: intact Thought content: appropriate Perceptual disorders: no perceptual diso rder noted Suicidal ideation: none Homicidal ideation: none Delusions: no Hallucinations: no
--- OUTSIDE RECORDS SUMMARY | 2024-05-19 13:55 | XMS_ITS | Clinical Summary ---
Author Organization [facility] Address [facility] [place] [address] Care Team Providers Care Human Resources Department Supervisor Name Role Phone Jomar Marino DO Primary Care Provider [phone] Allergies No known active allergies Medications naproxen (NAPROSYN) 500 MG tablet Take 1 tablet (500 mg total) by mouth 2 (two) times daily with meals. 20 tablet 11/23/2023 Active HYDROcodone-ned taminophen (NORCO) 10-325 MG tabletIndicatio ns:Acute Pain < 3 Day Supply Take 0.5 tablets by mouth every 6 (six) hours as needed for Pain. Indications: Acute Pain < 3 Day Supply 5 tablet 11/23/2023 Active Social History Tobacco Use Types Packs/Day Years Used Date Smoking Tobacco: Never Smokeless Tobacco: Never Tobacco Cessation:Counseling Given: Not Answered Comments Unknown Sex and Gender Information Value Date Recorded Sex Assigned at Not on file Legal Sex Female 10:10 AM CDT Gender Identity Not on file Sexual Orientation Not on file Last Filed Vital Signs Vital Sign Reading Time Taken Comments Blood Pressure 138/83 11/23/2023 1:45 PM CDT Pulse 73 11/23/2023 1:45 PM CDT Temperature 36.6 C (97.8 F) 11/23/2023 10:22 AM CDT Respiratory Rate 16 11/23/2023 1:45 PM CDT Oxygen Saturation 100% 11/23/2023 1:45 PM CDT Inhaled Oxygen Concentration - - Weight 131.5 kg (290 lb) 11/23/2023 10:25 AM CDT Height 172.7 cm (5' 8 ) 11/23/2023 10:25 AM CDT Body Mass Index 44.09 11/23/2023 10:25 AM CDT Plan of Treatment Health Maintenance Due Date Last Done Comments Cervical Cancer Screening Pap Smear (Age 30 to 64) Every 3 Years 1980 Annual Physical 09/07/1983 Hepatitis C 1998 Hepatitis B Vaccines (1 of 3 - 19+ 3-dose series) 09/07/1999 Cervical Cancer Screening Pap with HPV Testing (Age 30 to 64) Every 5 Years 2010 Cervical Cancer Screening with HPV 2010 Mammogram Screening 2020 COVID-19 Vaccine ( season) 2023 04/11/2022, 07/27/2020, 07/06/2020 Influenza Adult (#1) 2023 04/11/2022, 01/13/2021, 12/31/2019, Additional history exists DTaP, Tdap and Td Vaccines (3 - Td or Tdap) 04/23/2027 04/23/2017, 04/25/2016 HPV Vaccines Aged Out No longer eligi ble based on patient's age to complete this topic Meningococcal B Vaccine Aged Out No l onger eligible based on patient's age to complete this topic Meningococcal Vaccine Aged Out No allie cristina eligible based on patient's age to complete this topic Pneumococcal Vaccine: Pediatrics (0 to 5 Years) and At-Risk Patients (6 to 64 Years) Aged Out No longer eligible based on patient's age to complete this topic RSV Immunizations Under 20 Months Aged Out No longer eligible based on patient's age to complete this topic Insurance [employer] Member Subscriber Plan / Payer (Ef fective 2023-Present) Name:Lakeshia Reyez Relation to Subscriber:Self Name:Lakeshia Reyez Payer ID:[id number] (NAIC) Type:Not on file Address: [place] [id number] [facility] [place] [address] Care Teams Human Resources Department Supervisor Relationship Specialty Start Date End Date Jomar Marino DO [address] [place] [id number] PCP - General INTERNAL MEDICINE 11/23/23
--- OUTSIDE RECORDS SUMMARY | 2024-05-19 13:55 | XMS_ITS ---
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 Name Role Phone Jomar Marino DO Primary Care Provider UnavailSaw Simon Unavailable [phone] Allergies Allergen (clinical drug ingredient) Drug/Non Drug Allergy documented on EMR Reaction Allergy Type Onset Date Status Non-steroidal anti-inflammatory agent (FN) NSAIDS (NON-STEROIDAL ANTI-INFLAMMATORY DRUG) (uncoded) Unknown Allergy 06/24/2023 Active Ciprofloxacin Unknown Drug Allergy 06/24/2023 Ac tive REASON FOR VISIT f/u per saw quispe to schedule, advance care planning, Depression screening positive, MIPS Alcohol Screen negative for abuse Medications Medication SIG (Take, Route, Frequency, Duration) Notes Start Date End Date Status Metoprolol Tartrate 25 MG Oral 06/24/2023 Active Levothyroxine Sodium 50 MCG Oral 06/24/2023 Active Ferrous Sulfate 325 (65 Fe) MG Oral 06/24/2023 Active Ergocalciferol 1.25 MG (98411 UT) Oral 06/24/2023 Active Atomoxetine HCl 80 MG 1 capsule Oral Onc e a day for 90 days Active Pantoprazole Sodium 40 MG Oral 06/24/2023 Active Escitalopram Oxalate 20 MG 1 tablet Oral Once a day for 90 days Active Social History Tobacco Use: Social History Observation Description Date Details (start date - stop date) Former Smoker 03/25/1996 - 03/25/1998 Sex Assigned At : Social History Observation Description Sex Assigned At Female Tobacco Control (Standard) Question Answer Notes Tobacco use: Former smoker When did you start smoking? 03/25/1996 When did you stop smoking? 03/25/1998 How long has it been since you last smoked? Vaibhavre[address] ter than 10 years AUDIT-C (Standard) Question Answer Notes Did you have a drink containing alcohol in the p ast year? No Vital Signs Blood pressure systolic 126 mm Hg 05/12/19 25 Blood pressure diastolic 86 mm Hg 025 Heart Rate 80 /min 05/12/2024 Height 68.00 in 05/12/2024 Weight 287 lbs 05/12/2024 BMI 43.63 kg/m2 05/12/2024 Height-cm 172.72 cm 05/12/2024 Weight-kg 130.18 kg 05/12/2024 Encounters Encounter Location Date Provider Diagnosis [facility] [employer] [address] [facility] [address] [place] [address] 05/12/2024 Saw Pelayo Generalized anxiety disorder F41.1 ; Major depressive disorder, recurrent severe without psychotic features F33.2 ; Attention-deficit hyperactivity disorder, combined type F90.2 and Post-traumatic stress disorder, chronic F43.12 Assessments Encounter Date Diagnosis (ICD Code) Assessment Notes Treatment Notes Treatment Clinical Notes Section Notes 05/12/2024 Generalized anxiety disorder (ICD-10 - F41.1) 05/12/2024 Major depressive disorder, recurrent severe without psychotic features (ICD-10 - F33.2) Common side effects to SSRI medications include headaches, dry mouth/eye, GI upset (including indigestion, nausea, diarrhea), sleeping problems (insomnia or drowsiness), decreased libido, blurred vision, dizziness. Generally, side effects will subside or lessen with time and are common during drug initiation and dose changes. If they persist please contact the office. 05/12/2024 Attention-deficit hyperactivity disorder, combined type (ICD-10 - F90.2) Discussed risks/benefits/al ternatives to atomoxetine, including GI side effects, weight loss, irritability, constipation, sexual dysfunction, increase in blood pressure and liver damage. Patient denies any h/o cardiovascular disease, including hypertension, tachyarrhythmias. 05/12/2024 Post-traumatic stress disorder, chronic (ICD-10 - F43.12) 05/12/2024 Other Continue current medications, refills sent in today. Patient educated on all medications including potential benefits, side effects, risks. Educated on proper dosing schedule and importance of compliance. -Assessment and treatment plan reviewed with patient. -Compliance with treatment plan importance discussed. -Discussed the risks/benefits of this medication -Discussed medication side effects. -Contact office if symptoms worsen. -Discussed that it can take up to 6-8 weeks to see full therapeutic effects of psychotropic medications. -Crisis prevention hotline 988. Plan Of Treatment Medication Medication Name Sig Start Date Stop Date Notes Atomoxetine HCl 80 MG 1 capsule Oral Onc e a day for 90 days Escitalopram Oxalate [...] h/o cardiovascular disease, including hypertension, tachyarrhythmias. Other Continue current medications, refills sent in today. Patient educated on all medications including potential benefits, side effects, risks. Educated on proper dosing schedule and importance of compliance. Next Appt Details Follow Up: 4 Months, Reason: med f/u Provider Name:Saw Pelayo, 09/08/2024 03:30:00 PM, [address] [facility] [address], [facility] [address], [address], Progress Notes * NILE COOKB:[birth year] (43 yo F)Acc No.[id number]:05/12/2024 Patient: Tina RAIMUNDO CABA Provider: Stephani PELAYO PMHNP :1980 A ge:43 Y S ex:Female Date:05/12/2024 Address:[address] [place] [address] [address] ESC[address], [facility] Pcp:Jomar Marino DO Subjective: * Chief Complaints: * F /u per saw ok to scheduleAdvance care planningDepression screening positiveMIPS Alcohol Screen negative for abuse * HPI: H istory of Presenting Problem: Medication Side Effects n one . Anxiety w ith excessive worry, which has been long-standing, aggravated by, difficult work, financial and/or relationship issues, and relieved by, compliance with medication therapy. Depression R ates depression 3-4/10 with 10 being most severe. Denies SI. . Mood lability N o hx jaky. Psychosis N o hx psychosis . Suicidal ideation D enies. ADHD S table. Psychotherapy I zzy at [place] (family counseling) . ? Here for medication follow up. Trazodone discontinued last apt. Reports i am feeling good, I still get overwhelmed here and there . At times continues to get overstimulated, I still have my down days I need to reset , states she has more good days than bad days in general. Anxiety is stable it is not keeping me awake at night , denies recent panic attacks. Sleep is good, getting about 6-8 hours nightly. Energy if fair to low. Appetite is fair. D epression screening: PHQ-9 L ittle interest or pleasure in doing things?Not at all F eeling down, depressed, or hopeless N ot at all T rouble falling or staying asleep, or sleeping too much N ot at all F eeling tired or having little energy N early every day P oor appetite or overeating S everal days F eeling bad about yourself or that you are a failure, or have let yourself or your family down N ot at all T rouble concentrating on things, such as reading the newspaper or watching television N ot at all M oving or speaking so slowly that other people could have noticed; or the opposite, being so fidgety or restless that you have been moving around a lot more than usual N ot at all T houghts that you would be better off or of hurting yourself in some way N ot at all T otal Score 4 I nterpretation M inimal Depression Intervention D epression Screening Findings P ositve F ollow-Up for Depression M entpr health treatment assessment, Patient follow-up to return when and if necessary S uicide Risk Assessment Performed _ A dditional Evaluation for Depression P sychiatric interview and evaluation N javier of the standardized tool used for adult depression screening: P atient Health Questionnaire (PHQ-9) D epression Screening: SELENA-7 (2018 Edition) F eeling nervous, anxious, or on edge S everal N ot being able to stop or control worrying?Not at all W orrying too much about different things S ever T rouble relaxing N ot at all B eing so restless that it is hard to sit still N ot at all B ecoming easily annoyed or irritable S ever F eeling afraid as if something awful might happen N ot at all T otal SELENA-7 Score 3 I f you checked any problems, how difficult have they made it for you to do your work, take care of things at home, or get along with other people? S omewhat difficult I nterpretation of Total ( 0 to 4) No Anxiety * ROS: P sychiatric: Patient denies a uditory / visual hallucinations, delusions, suicidal thoughts, jaky, psychosis, irritability, panic attacks, depressed mood, anxiety. C florentino S kassie HPI for details. P erformance Met: N ormal blood pressure reading documented, follow-up not required ( G8783). * Medical History: * Surgical History: A ny surgical history Tonsilectomy/adenoids 03/25/1989inus surgery 03/25/1997Gastric bypass for obesity (07674) 03/25/2013Cosmetic surgery 03/25/2017Cesarean section ([id number]) 03/25/2017Reconstructive surgery 03/25/2017 * Hospitalization/Major Diagno stic Procedure: * Family History: F ather: Morbid obesity [...] Control (Standard) T obacco use: F ormer smoker W hen did you start smoking? 0 03/25/1996 W hen did you stop smoking? 0 03/25/1998 H ow long has it been since you last smoked??Greater than 10 years M igrated Social History: M igrated Social History: Alcohol Intake: None 04/28/2020,Tobacco Years: Former smoker 08/04/2020. D rug/Alcohol: A ROSA MARIA-C (Standard) D id you have a drink containing alcohol in the past year? N o M iscellaneous: A dvance Care Planning A re you your own decision-maker Y es D o you have Power of Brine Well Operator for Health or Medical? N o * Medications: T akingEscitalopram Oxalate 20 MG Tablet 1 tablet Oral Once a day Atomoxetine HCl 80 MG Capsule 1 capsule Oral Once a day Levothyroxine Sodium 50 MCG Tablet Oral Ferrous Sulfate 325 (65 Fe) MG Tablet Oral Ergocalciferol 1.25 MG (30236 UT) Capsule Oral Metoprolol Tartrate 25 MG Tablet Oral Pantoprazole Sodium 40 MG Tablet Delayed Release Oral Medication List reviewed and reconciled with the patientTaking Escitalopram Oxalate 20 MG Tablet 1 tablet Oral Once a day Taking Atomoxetine HCl 80 MG Capsule 1 capsule Oral Once a day Taking Levothyroxine Sodium 50 MCG Tablet Oral Taking Ferrous Sulfate 325 (65 Fe) MG Tablet Oral Taking Ergocalciferol 1.25 MG (82287 UT) Capsule Oral Taking Metoprolol Tartrate 25 MG Tablet Oral Taking Pantoprazole Sodium 40 MG Tablet Delayed Release Oral Medication List reviewed and reconciled with the patient * Allergies: N SAIDS (NON-STEROIDAL ANTI-INFLAMMATORY DRUG): Allergy - Onset Date 06/24/2023iprofloxacin: Allergy - Onset Date 06/24/2023no[Allergies Verified] Objective: * Vitals: B P:126/86mm Hg, HR:80/min, Wt:287lbs, Wt-k.18 kg, Ht: 68.00 in, Ht-cm: 172.72 cm, BMI:43.63Index, Body Surface Area: 2.5. * Examination: P sychiatry: Appearance: w ell-groomed. [...] chronic - F43.12 Plan: * Treatment: 2. A ttention-deficit hyperactivity disorder, combined type Refill Atomoxetine HCl Capsule, 80 MG, 1 capsule, Oral, Once a day, 90 days, 90 Capsule, Refills 0.? Notes: Discussed risks/benefits/alternatives to atomoxetine, including GI side effects, weight loss, irritability, constipation, sexual dysfunction, increase in blood pressure and liver damage. Patient denies any h/o cardiovascular disease, including hypertension, tachyarrhythmias. 3. O thers Notes: Continue current medications, refills sent in today. Patient educated on all medications including potential benefits, side effects, risks. Educated on proper dosing schedule and importance of compliance. Clinical Notes: -Assessment and treatment plan reviewed with patient. -Compliance with treatment plan importance discussed. -Discussed the risks/benefits of this medication -Discussed medication side effects. -Contact office if symptoms worsen. -Discussed that it can take up to 6-8 weeks to see full therapeutic effects of psychotropic medications. -Crisis prevention hotline 988. * Procedure Codes: G 8783 NORMAL BP READING DOC F/U NOT [id number] BEHAV ASSMT W/SCORE & DOCD/STAND [id number] Screen hlthy etoh [id number] CLIN DEPRESSION SCREEN [id number] MOST RECENT SYSTOLIC BP < 140MM [id number] MOST RECENT DIASTOLIC BP < 90MM [id number] VISIT COMPLEXITY INHERENT TO ONGOING CARE RELATED TO A PATIENT'S SINGLE, SERIOUS CONDITION OR A COMPLEX CONDITION * Preventive Medicine: Counseling: A dvance Care Planning Date of last Advance Care Planning:?05/12/2024 ____ MIPS Screenings: A lcohol misuse screening Have you had a recent alcohol misuse screening? Y es * Follow Up: 4 Months (Reason: med f/u) * Billing Information: * Visit Code: 18797 OFFICE OUTPATIENT VISIT 25 MINUTES DETAILED HISTORY AND EXAM/MODERATE MEDICAL DECISION MAKING. * Procedure Codes: G8783 NORMAL BP READING DOC F/U NOT RQR. [id number] BEHAV ASSMT W/SCORE & DOCD/STAND INSTRUMENT. G2197 Screen hlthy etoh use. G8431 CLIN DEPRESSION SCREEN DOC. G8752 MOST RECENT SYSTOLIC BP < 140MM HG. G8754 MOST RECENT DIASTOLIC BP < 90MM HG. G2211 VISIT COMPLEXITY INHERENT TO ONGOING CARE RELATED TO A PATIENT'S SINGLE, SERIOUS CONDITION OR A COMPLEX CONDITION. 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 Trazodone discontinued last apt. Reports i am feeling good, I still get overwhelmed here and there . At times continues to get overstimulated, I still have my down days I need to reset , states she has more good days than bad days in general. Anxiety is stable it is not keeping me awake at night , denies recent panic attacks. Sleep is good, getting about 6-8 hours nightly. Energy if fair to low. Appetite is fair. Depression Rates depression 3-4 /10 with 10 being most severe. Denies SI. Suicidal ideation Denies Psychosis No hx psychosis Mood lability No hx jaky ADHD Stable Psychotherapy Luzma at [place] (fami ly counseling) Medication Side Effects none Depression screening PHQ-9 Little inte rest or pleasure in doing things: Not at all Feeling down, depressed, or hopeless: No t at all Trouble falling or staying asleep, or sl eeping too much: Not at all Feeling tired or having little energy: N early every day Poor appetite or overeating: Several day s [...] some way: Not at all Total Score: 4 Interpretation: Minimal Depression Intervention Depression Screening Findings: P ositve Follow-Up for Depression: [facility] treatment assessment, Patient follow-up to return when and if necessary Suicide Risk Assessment Performed: Additional Evaluation for Depression: Ps ychiatric interview and evaluation Name of the standardized too l used for adult depression screening:: Patient Health Questionnaire (PHQ-9) Depression Screening SELENA-7 (2018 Edition) Feelin g nervous, anxious, or on edge: Several days Not being able to stop or control worryi ng: Not at all Worrying too much about different things : Several days Trouble relaxing: Not at all Being so restless that it is hard to sit still: Not at all Becoming easily annoyed or irritable: Se veral days Feeling afraid as if something awful ellie ht happen: Not at all Total SELENA-7 Score: 3 If you checked any problems, how difficult have they made it for you to do your work, take care of things at home, or get along with other people?: Somewhat difficult Interpretation of Total: (0 to 4) No Anx iety Examination Category Sub-Category Detail Notes Category Not [...]
--- OUTSIDE RECORDS SUMMARY | 2024-05-19 13:55 | XMS_ITS ---
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 Name Role Phone Ned Jomar FLOWERS Primary Care Provider UnavailYojana Simon Unavailable [phone] Allergies Allergen (clinical drug ingredient) Drug/Non Drug Allergy documented on EMR Reaction Allergy Type Onset Date Status Non-steroidal anti-inflammatory agent (FN) NSAIDS (NON-STEROIDAL ANTI-INFLAMMATORY DRUG) (uncoded) Unknown Allergy 06/24/2023 Active Ciprofloxacin Unknown Drug Allergy 06/24/2023 Ac tive REASON FOR VISIT follow up Medications Medication SIG (Take, Route, Frequency, Duration) Notes Start Date End Date Status traZODone HCl 50 MG 1 tablet at bedtime as needed Oral Once a day for 90 days 06/24/2023 Active Escitalopram Oxalate 20 MG 1 tablet Oral Once a day for 90 days 06/24/2023 Active Pantoprazole Sodium 40 MG Oral 06/24/2023 Unknown Wellbutrin XL 150 MG Oral 06/24/2023 Unknown Atomoxetine HCl 80 MG 1 capsule Oral Onc e a day for 90 days 06/24/2023 Active Strattera 80 MG Oral 06/24/2023 Unk nown Ferrous Sulfate 325 (65 Fe) MG Oral 06/24/2023 Unknown Metoprolol Tartrate 25 MG Oral 06/24/2023 Unknown Ergocalciferol 1.25 MG (96994 UT) Oral 06/24/2023 Unknown Ofloxacin 0.30% Ophthalmic 06/24/2023 Un known Levothyroxine Sodium 50 MCG Oral 06/24/2023 Unknown Social History Tobacco Use: Social History Observation Description Date Details (start date - stop date) Former Smoker NA - NA Sex Assigned At : Social History Observation Description Sex Assigned At Female Tobacco Control (Standard) Question Answer Notes Tobacco use: Former smoker How long has it been since you last smoked? Grea ter than 10 years AUDIT-C (Standard) Question Answer Notes Did you have a drink containing alcohol in the p ast year? No Problems Problem Type SNOMED Code ICD Code Onset Dates Problem Status W/U Status Risk Notes Problem Generalized anxiety disorder (75559381) Generalized anxiety disorder (F41.1) Active confirmed Problem Severe recurrent major depression without psychotic features (34947992) Major depressive disorder, recurrent severe without psychotic features (F33.2) Active confirmed Problem Attention deficit hyperactivity disorder, combined type (54097226) Attention-deficit hyperactivity disorder, combined type (F90.2) Active confirmed Problem Posttraumatic stress disorder (25092452) Post-traumatic stress disorder, chronic (F43.12) Active confirmed Encounters Encounter Location Date Provider Diagnosis [facility] [address] [address] 09/23/2023 Yojana Pelayo Generalized anxiety disorder F41.1 ; Major depressive disorder, recurrent severe without psychotic features F33.2 ; Attention-deficit hyperactivity disorder, combined type F90.2 and Post-traumatic stress disorder, chronic F43.12 Assessments Encounter Date Diagnosis (ICD Code) Assessment Notes Treatment Notes Treatment Clinical Notes Section Notes 09/23/2023 Generalized anxiety disorder (ICD-10 - F41.1) 09/23/2023 Major depressive disorder, recurrent severe without psychotic features (ICD-10 - F33.2) 09/23/2023 Attention-deficit hyperactivity disorder, combined type (ICD-10 - F90.2) 09/23/2023 Post-traumatic stress disorder, chronic (ICD-10 - F43.12) 09/23/2023 Other Overall stable, continue current medications. Refills sent in today. Patient educated on all medications including potential benefits, side effects, risks. Educated on proper dosing schedule and importance of compliance. Plan Of Treatment Medication Medication Name Sig Start Date Stop Date Notes traZODone HCl 50 MG 1 tablet at bedtime as needed Oral Once a day for 90 days 06/24/2023 Escitalopram Oxalate 20 MG 1 tablet Oral Once a day for 90 days 06/24/2023 Atomoxetine HCl 80 MG 1 capsule Oral Onc e a day for 90 days 06/24/2023 Treatment Notes Assessment Notes Other Overall stable, continue current medications. Refills sent in today. Patient educated on all medications including potential benefits, side effects, risks. Educated on proper dosing schedule and importance of compliance. Next Appt Details Follow Up: 3 Months, Reason: medication follow up Provider Name:Yojana Kaycee Pelayo, 09/08/2024 03:30:00 PM, [address] [facility] [address], [facility] [address], [place], [address], Progress Notes * ORTEGA COOKADOB:[birth year] (43 yo F)Acc No.[id number]:09/23/2023 Patient: Tina RAIMUNDO CABA Provider: Stephani PELAYO PMHNP :1980 A ge:43 Y S ex:Female Date:09/23/2023 Address:[address] [place] [address] [address], [facility] Subjective: * Chief Complaints: * 1 . Follow up. * HPI: D epression screening: PHQ-9 L ittle interest or pleasure in doing things S everal days, F eeling down, depressed, or hopeless S everal days, T rouble falling or staying asleep, or sleeping too much N early every day, F eeling tired or having little energy Nearly every day, P oor appetite or overeating N early every day, F eeling bad about yourself or that [...] yourself in some way N ot at all. D epression Screening: SELENA-7 (2018 Edition) F eeling nervous, anxious, or on edge?Several days, N ot being able to stop or control worrying N ot at all, W orrying too much about different things N ot at all, T rouble relaxing N ot at all, B eing so restless that it is hard to sit still N ot at all, B ecoming easily annoyed or irritable?Several days, F eeling afraid as if something awful might happen S everal days, I f you checked any problems, how difficult have they made it for you to do your work, take care of things at home, or get along with other people? S omewhat difficult. C [place]-Suicide Severity Rating Scale: Suicide Risk [...] anything to end your life? N o. H istory of Presenting Problem: Anxiety w ith excessive worry, which has been long-standing, aggravated by, difficult work, financial and/or relationship issues, and relieved by, compliance with medication therapy. D epression R ates depression 4/10 with 10 being most severe. Denies SI. . M ood lability N o hx jaky. P sychosis N o hx psychosis . S uicidal ideation D enies. A D S table. Here for medication follow up. No medication changes made last apt. Reports she is overall doing well. Her father just had his second surgery on his kidney, continues to struggle with taking care of her sister. Continues to have custody battles with her ex. He is considering signing over his custody. ADHD symptoms are stable, able to stay on task and get things done. * ROS: P sychiatric: Comments S ee HPI for details. * Medical History: P yoselynms: Attention deficit hyperactivity disorder, combined type, Chronic post-traumatic stress disorder, Essential hypertension, Generalized anxiety disorder, History of bypass of stomach, Hypothyroidism, Mild recurrent major depression, Severe recurrent major depression without psychotic features, Uterine fibroid polyp, ,. * Surgical History: A sd surgical history , Tonsilectomy/adenoids 03/25/1989, Sinus surgery 03/25/1997, Gastric bypass for obesity (31012) 03/25/2013, Cosmetic surgery 03/25/2017, section ([id number]) 03/25/2017, Reconstructive surgery 03/25/2017. * Family History: [...] (Standard) T obacco use: F ormer smoker, H ow long has it been since you last smoked? G reater than 10 years. M igrated Social History: M igrated Social History: Alcohol Intake: None 04/28/2020,Tobacco Years: Former smoker 08/04/2020. D rug/Alcohol: A ROSA MARIA-C (Standard) D id you have a drink containing alcohol in the past year? N o.? * Medications: T aking traZODone HCl 50 MG Tablet Oral , Taking Atomoxetine HCl 80 MG Capsule Oral , Taking Escitalopram Oxalate 20 MG Tablet Oral , Unknown Levothyroxine Sodium 50 MCG Tablet Oral , Unknown Ferrous Sulfate 325 (65 Fe) MG Tablet Oral , Unknown Strattera 80 MG Capsule Oral , Unknown Ergocalciferol 1.25 MG (33023 UT) Capsule Oral , Unknown Metoprolol Tartrate 25 MG Tablet Oral , Unknown Ofloxacin 0.30% Solution Ophthalmic , Unknown Wellbutrin XL 150 MG Tablet Extended Release 24 Hour Oral , Unknown Pantoprazole Sodium 40 MG Tablet Delayed Release Oral * Allergies: N SAIDS (NON-STEROIDAL ANTI-INFLAMMATORY DRUG): [...] a day, 90 days, 90 Tablet, Refills 0. 3. A ttention-deficit hyperactivity disorder, combined type Refill Atomoxetine HCl Capsule, 80 MG, 1 capsule, Oral, Once a day, 90 days, 90 Capsule, Refills 0.? 4. O thers Notes: Overall stable, continue current medications. Refills sent in today. Patient educated on all medications including potential benefits, side effects, risks. Educated on proper dosing schedule and importance of compliance. * Procedure Codes: G 2211 VISIT COMPLEXITY INHERENT TO ONGOING CARE RELATED TO A PATIENT'S SINGLE, SERIOUS CONDITION OR A COMPLEX CONDITION * Follow Up: 3 Months (Reason: medication follow up) * Billing Information: * Visit Code: 07844 OFFICE OUTPATIENT VISIT 25 MINUTES DETAILED HISTORY AND EXAM/MODERATE MEDICAL DECISION MAKING. * Procedure Codes: G2211 VISIT COMPLEXITY INHERENT TO ONGOING CARE RELATED TO A PATIENT'S SINGLE, SERIOUS CONDITION OR A COMPLEX CONDITION. 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 No medication changes made last apt. Reports she is overall doing well. Her father just had his second surgery on his kidney, continues to struggle with taking care of her sister. Continues to have custody battles with her ex. He is considering signing over his custody. ADHD symptoms are stable, able to stay on task and get things done. Depression Rates depression 4 0 with 10 being most severe. Denies SI. Suicidal ideation Denies Psychosis No hx psychosis Mood lability No hx jaky ADHD Stable Depression screening PHQ-9 Little inte rest or pleasure in doing things: Several days Feeling down, depressed, or hopeless: Se veral days Trouble falling or staying asleep, or sl eeping too much: Nearly every day Feeling tired or having little energy: N early every day Poor appetite or overeating: Nearly ever y day Feeling bad about yourself o r that [...] yourself in some way: Not at all Depression Screening SELENA-7 (2018 Edition) Feelin g nervous, anxious, or on edge: Several days Not being able to stop or control worryi ng: Not at all Worrying too much about different things : Not at all Trouble relaxing: Not at all Being so restless that it is hard to sit still: Not at all Becoming easily annoyed or irritable: Se veral days Feeling afraid as if something awful elile ht happen: Several days If you checked any problems, how difficult have they made it for you to do your work, take care of things at home, or get along with other people?: Somewhat difficult [place]-Suicide Severity Rating Scale Suicide Risk (CSRS-screener) in [...]
--- OUTSIDE RECORDS SUMMARY | 2024-05-19 13:55 | XMS_ITS | Patient Health Record ---
Author Organization [facility] [employer] Address [address] [place] [address] Care Team Providers Care Business Coordinator Name Role Phone Jomar Marino DO Primary Care Provider UnavailYojana Simon Unavailable [phone] Migration, Provider Unavailable Unavailable Allergies Allergen (clinical drug ingredient) Drug/Non Drug Allergy documented on EMR Reaction Allergy Type Onset Date Status Non-steroidal anti-inflammatory agent (FN) NSAIDS (NON-STEROIDAL ANTI-INFLAMMATORY DRUG) (uncoded) Unknown Allergy 06/24/2023 Active Ciprofloxacin Unknown Drug Allergy 06/24/2023 Ac tive Reason For Referral No Information Medications Medication SIG (Take, Route, Frequency, Duration) Notes Start Date End Date Status Metoprolol Tartrate 25 MG Oral 06/24/2023 Active Pantoprazole Sodium 40 MG Oral 06/24/2023 Active Levothyroxine Sodium 50 MCG Oral 06/24/2023 Active Ferrous Sulfate 325 (65 Fe) MG Oral 06/24/2023 Active Ergocalciferol 1.25 MG (97194 UT) Oral 06/24/2023 Active Escitalopram Oxalate 20 MG 1 tablet Oral Once a day for 90 days Active Atomoxetine HCl 80 MG 1 capsule Oral Onc e a day for 90 days Active Immunizations Vaccine Route Administration Date Status Comme nts Novel Aroykdoay-[id number], preservative free Unknown 12/31/2019 Administered Pfizer Biontech Covid-19 Vac cine 2nd dose Unknown 07/06/2020 Administered Pfizer Biontech Covid-19 Vac cine 2nd dose Unknown 07/27/2020 Administered Tdap Unknown 04/25/2016 Administered Social History Tobacco Use: Social History Observation [...] Problem Status W/U Status Risk Notes Problem Severe recurrent major depression without psychotic features (96085565) Major depressive disorder, recurrent severe without psychotic features (F33.2) Active confirmed Problem Generalized anxiety disorder (28125951) Generalized anxiety disorder (F41.1) Active confirmed Problem Posttraumatic stress disorder (85872497) Post-traumatic stress disorder, chronic (F43.12) Active confirmed Problem Attention deficit hyperactivity disorder, combined type (12789907) Attention-deficit hyperactivity disorder, combined type (F90.2) Active confirmed Vital Signs Heart Rate 80 /min 05/12/2024 Height-cm 172.72 cm 05/12/2024 Blood pressure diastolic 86 mm Hg 05/12/2024 Weight-kg 130.18 kg 05/12/2024 Height 68.00 in 05/12/2024 Blood pressure systolic 126 mm Hg 05/12/2024 Weight 287 lbs 05/12/2024 BMI 43.63 kg/m2 05/12/2024 Encounters Encounter Location Date Provider Diagnosis [facility] [address] [facility] [address] [address] 06/24/2023 Yojana Pelayo Major depressive disorder, recurrent, mild F33.0 ; Attention-deficit hyperactivity disorder, combined type F90.2 ; Generalized anxiety disorder F41.1 and Post-traumatic stress disorder, chronic F43.12 [facility] [address] [facility] [address] [address] 09/23/2023 Yojana Pelayo Generalized anxiety disorder F41.1 ; Major depressive disorder, recurrent severe without psychotic features F33.2 ; Attention-deficit hyperactivity disorder, combined type F90.2 and Post-traumatic stress disorder, chronic F43.12 [facility] [address] [address] 12/24/2023 Yojana Gita Generalized anxiety disorder F41.1 ; Major depressive disorder, recurrent severe without psychotic features F33.2 ; Attention-deficit hyperactivity disorder, combined type F90.2 and Post-traumatic stress disorder, chronic F43.12 [facility] [address] [facility] [address] [facility] [address] [place] [address] 05/12/2024 Yojana Gita Generalized anxiety disorder F41.1 ; Major depressive disorder, recurrent severe without psychotic features F33.2 ; Attention-deficit hyperactivity disorder, combined type F90.2 and Post-traumatic stress disorder, chronic F43.[address] [facility] [address] [place] [address] 08/10/2023 Provider Migration [address] [facility] [address] [place] [address] 08/11/2023 Provider Migration Assessments Encounter Date Diagnosis (ICD Code) Assessment Notes Treatment Notes Treatment Clinical Notes Section Notes 09/23/2023 Generalized anxiety disorder (ICD-10 - F41.1) 12/24/2023 Generalized anxiety disorder (ICD-10 - F41.1) 05/12/2024 Generalized anxiety disorder (ICD-10 - F41.1) 06/24/2023 Major depressive disorder, recurrent, mild (ICD-10 - F33.0) 06/24/2023 Generalized anxiety disorder (ICD-10 - F41.1) 06/24/2023 Post-traumatic stress disorder, chronic (ICD-10 - F43.12) 06/24/2023 Attention-deficit hyperactivity disorder, combined type (ICD-10 - F90.2) 09/23/2023 Major depressive disorder, recurrent severe without psychotic features (ICD-10 - F33.2) 05/12/2024 Major depressive disorder, recurrent severe without psychotic features (ICD-10 - F33.2) Common side effects to SSRI medications include headaches, dry mouth/eye, GI upset (including indigestion, nausea, diarrhea), sleeping problems (insomnia or drowsiness), decreased libido, blurred vision, dizziness. Generally, side effects will subside or lessen with time and are common during drug initiation and dose changes. If they persist please contact the office. 09/23/2023 Attention-deficit hyperactivity disorder, combined type (ICD-10 - F90.2) 12/24/2023 Major depressive disorder, recurrent severe without psychotic features (ICD-10 - F33.2) Common side effects to SSRI medications include headaches, dry mouth/eye, GI upset (including indigestion, nausea, diarrhea), sleeping problems (insomnia or drowsiness), decreased libido, blurred vision, dizziness. Generally, side effects will subside or lessen with time and are common during drug initiation and dose changes. If they persist please contact the office. 09/23/2023 Post-traumatic stress disorder, chronic (ICD-10 - F43.12) 12/24/2023 Attention-deficit hyperactivity disorder, combined type (ICD-10 - F90.2) Discussed risks/benefits/al ternatives to atomoxetine, including GI side effects, weight loss, irritability, constipation, sexual dysfunction, increase in blood pressure and liver damage. Patient denies any h/o cardiovascular disease, including hypertension, tachyarrhythmias. 05/12/2024 Attention-deficit hyperactivity disorder, combined type (ICD-10 - F90.2) Discussed risks/benefits/al ternatives to atomoxetine, including GI side effects, weight loss, irritability, constipation, sexual dysfunction, increase in blood pressure and liver damage. Patient denies any h/o cardiovascular disease, including hypertension, tachyarrhythmias. 05/12/2024 Post-traumatic stress disorder, chronic (ICD-10 - F43.12) 12/24/2023 Post-traumatic stress disorder, chronic (ICD-10 - F43.12) 09/23/2023 Other Overall stable, continue current medications. Refills sent in today. Patient educated on all medications including potential benefits, side effects, risks. Educated on proper dosing schedule and importance of compliance. 12/24/2023 Other Discontinue Trazodone due to ineffectiveness. Patient educated on all medications including potential benefits, side effects, risks. Educated on proper dosing schedule and importance of compliance. 05/12/2024 Other Continue current medications, refills sent [...] -Crisis prevention hotline 988. Plan Of Treatment Next Appt Details Provider Name:Yojana Pelayo, 09/08/2024 03:30:00 PM, [address], [place], [address], Insurance Providers Payer Name Payer Address Payer Phone Subscriber Number Group Number Insured Name Patient Relationship to Insured Coverage Start Date Coverage End Date Medicare-I l Medicare [address] [place] [address] [id number] RAIMUNDO COOK Self - patient is the insured [place] [employer] [facility] - On Or After 2020 [address] [facility] [phone] [id number] RAIMUNDO COOK Self - patient is the insured Medical (General) History Surgical History Surgery Date(Month/Year) Any surgical history Tonsilectomy/adenoids 03/25/1989 Sinus surgery 03/25/1997 Gastric bypass for obesity (75439) 03/25 Cosmetic surgery 03/25/2017 section ([id number]) 03/25/2017 Reconstructive surgery 03/25/2017
== END 2024-05-19 12:03 | disposition home or self-care (01) ==
PROVIDERS: PCP Internal Medicine; Visit Provider Nurse Practitioner Obstetrics & Gynecology
DX: Z12.31 Encounter for screening mammogram for malignant neoplasm of breast (principal)
CPT/HCPCS: 77063; 77067

== ENCOUNTER 2024-12-17 09:31 | Outpatient (CLI) | payer MEDICARE, SELFPAY ==
--- OUTSIDE RECORDS SUMMARY | 2024-12-17 10:21 | XMS_ITS | Encounter Summary ---
Author Organization [facility] Address [address] [place] [address] Phone Care Team Providers Care Alignment Mechanic Name Role Phone Torres Boateng MD Primary Care Provider +1- [phone] Satya Andrade MD Primary Care Provider + [phone] Satya Andrade MD Primary Care Provider + [phone] Torres Boateng MD Primary Care Provider [phone] Torres Boateng MD Primary Care Provider +1-46 Torres Boateng MD Primary Care Provider +1-22 Satya Andrade MD Primary Care Provider + [phone] Satya Andrade MD Primary Care Provider + [phone] Satya Andrade MD Primary Care Provider + [phone] Satya Andrade MD Primary Care Provider + [phone] Satya Andrade MD Primary Care Provider + [phone] Satya Andrade MD Primary Care Provider + [phone] Torres Boateng MD Primary Care Provider +1-6 [...] Torres Boateng MD Primary Care Provider +1- [phone] Torres Boateng MD Primary Care Provider +1- [phone] Satya Andrade MD Primary Care Provider + [phone] Torres Boateng MD Primary Care Provider +[phone] Torres Boateng MD Primary Care Provider +1- [phone] Satya Andrade MD Primary Care Provider + [phone] Torres Boateng MD Primary Care Provider +1- [phone] Satya Andrade MD Primary Care Provider + [phone] Jomar Marino DO Primary Care Provider [phone] Encounter Details Date Type Department Care Team [...] on file 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 Gender Identity Not on file Sexual Orientation Not on file documented as of this encounter Plan of Treatment Not on file documented as of this encounter Procedures Procedure Name Priority Date/Time Associated Diagnosis Comments OBSTETRIC/GYNECOLOGY ULTRASONOGRAPHY REPORT 05/28/2017 2:55 PM REAL ESTATE SPECIALIST OBSTETRIC/GYNECOLOGY ULTRASONOGRAPHY REPORT 05/21/2017 11:43 AM REAL ESTATE SPECIALIST OBSTETRIC/GYNECOLOGY ULTRASONOGRAPHY REPORT 05/14/2017 11:30 AM REAL ESTATE SPECIALIST OBSTETRIC/GYNECOLOGY ULTRASONOGRAPHY REPORT 05/07/2017 1:13 PM REAL ESTATE SPECIALIST OBSTETRIC/GYNECOLOGY ULTRASONOGRAPHY REPORT 04/30/2017 2:36 PM REAL ESTATE SPECIALIST documented in this encounter Results * OBSTETRIC/GYNECOLOGY ULTRASONOGRAPHY REPORT (05/28/2017 2:55 PM REAL ESTATE SPECIALIST) Anatomical Region Laterality Modality Ultrasound us Provider Scanning IMG OB US PROCEDURES Final Res ult * OBSTETRIC/GYNECOLOGY ULTRASONOGRAPHY REPORT (05/21/2017 11:43 AM REAL ESTATE SPECIALIST) Anatomical Region Laterality Modality Ultrasound us Provider Scanning IMG OB US PROCEDURES Final Res ult * OBSTETRIC/GYNECOLOGY ULTRASONOGRAPHY REPORT (05/14/2017 11:30 AM REAL ESTATE SPECIALIST) Anatomical Region Laterality Modality Ultrasound us Provider Scanning IMG OB US PROCEDURES Final Res ult * OBSTETRIC/GYNECOLOGY ULTRASONOGRAPHY REPORT (05/07/2017 1:13 PM REAL ESTATE SPECIALIST) Anatomical Region Laterality Modality Ultrasound us Provider Scanning IMG OB US PROCEDURES Final Res ult * OBSTETRIC/GYNECOLOGY ULTRASONOGRAPHY REPORT (04/30/2017 2:36 PM REAL ESTATE SPECIALIST) Anatomical Region Laterality Modality Ultrasound us Provider Scanning IMG OB US PROCEDURES Final Res ult documented in this encounter Visit Diagnoses Not on filedocumented in this encounter Additional Health Concerns Infection Onset Date Last Indicated Resolved Time COVID: Recovered 04/06/2021 05/31/2021 08/04/2021 3:05 AM CDT COVID: Suspected 12/18/2023 12/18/2023 12/18/2023 3:54 PM CDT COVID: Suspected 03/10/2024 03/10/2024 03/10/2024 11:12 AM REAL ESTATE SPECIALIST COVID19 03/10/2024 03/10/2024 03/20/2024 3:05 AM REAL ESTATE SPECIALIST COVID: Recovered Comment:Added based on recent COVID infection. 03/20/2024 05/15/2024 06/18/2024 3:07 AM C DT COVID: Suspected 05/15/2024 05/15/2024 05/15/2024 6:25 PM REAL ESTATE SPECIALIST COVID: Suspected 05/15/2024 05/15/2024 05/16/2024 1:41 AM REAL ESTATE SPECIALIST documented as of this encounter Care Teams Alignment Mechanic Relationship Specialty Start Date End Date Torres Boateng MD [address] [facility] [address] [place] [address] PCP - General 04/30/17 04/30/17 Satya Andrade MD [address] [facility] [address] [place] [address] PCP - General 05/01/17 05/02/17 Satya Andrade MD [address] [facility] [address] [facility] [address] [place] [address] PCP - General 05/03/17 05/04/17 Torres Boateng MD [address] [facility] [address] [facility] [address] [place] [address] PCP - General 05/05/17 05/05/17 Torres Boateng MD [address] [facility] [address] [facility] [address] [place] [address] PCP - General 05/06/17 05/06/17 Torres Boateng MD [address] [facility] [address] [facility] [address] [place] [address] PCP - General 05/07/17 05/07/17 Satya Andrade MD [address] [facility] [address] [facility] [address] [place] [address] PCP - General 05/08/17 05/09/17 Satya Andrade MD [address] [facility] [address] [place] [address] PCP - General 05/10/17 05/13/17 Satya Andrade MD [address] [facility] [address] [place] [address] PCP - General 05/14/17 05/15/17 Satya Andrade MD [address] [address] PCP - General 05/16/17 05/16/17 Satya Andrade MD [address] [address] PCP - General 05/17/17 05/20/17 Satya Andrade MD [address] [address] PCP - General 05/21/17 05/21/17 Torres Boateng MD [address] [facility] [address] [place] [address] PCP - General 05/22/17 05/22/17 Satya Andrade MD [address] [address] PCP - General 05/23/17 05/23/17 Satya Andrade MD [address] [address] PCP - General 05/24/17 05/27/17 Torres Boateng MD [address] [address] PCP - General 05/28/17 05/28/17 Satya Andrade MD [address] [address] PCP - General 05/29/17 05/30/17 Satya Andrade MD [address] [address] PCP - General 05/31/17 06/04/17 Satya Andrade MD [address] [address] PCP - General 06/05/17 06/05/17 Torres Boateng MD [address] [address] PCP - General 06/06/17 06/09/17 Satya Andrade MD [address] [address] PCP - General 06/10/17 06/10/17 Satya Andrade MD [address] [address] PCP - General 06/11/17 06/16/17 Torres Boateng MD [address] [facility] [address] [place] [address] PCP - General 06/17/17 06/17/17 Satya Andrade MD [address] [facility] [address] [place] [address] PCP - General 06/18/17 06/18/17 Torres Boateng MD [address] [facility] [address] [place] [address] PCP - General 06/19/17 06/19/17 Satya Andrade MD [address] [facility] [address] [place] [address] PCP - General 06/20/17 07/01/17 Satya Andrade MD [address] [facility] [address] [place] [address] PCP - General 07/02/17 07/03/17 Torres Boateng MD [address] [facility] [address] [place] [address] PCP - General 07/04/17 07/08/17 Torres Boateng MD [address] [facility] [address] [place] [address] PCP - General 07/09/17 07/09/17 Satya Andrade MD [address] [facility] [address] [place] [address] PCP - General 07/10/17 07/10/17 Torres Boateng MD [address] [facility] [address] [place] [address] PCP - General 07/11/17 07/14/17 Satya Andrade MD [address] [facility] [address] [place] [address] PCP - General 07/15/17 07/15/17 Torres Boateng MD [address] [facility] [address] [place] [address] PCP - General 07/16/17 07/16/17 Satya Andrade MD [address] [facility] [address] [place] [address] PCP - General 07/17/17 07/21/17 Torres Boateng MD [address] [facility] [address] [place] [address] PCP - General 07/22/17 07/22/17 Satya Andrade MD [address] [facility] [address] [place] [address] PCP - General 07/23/17 08/04/17 Torres Boateng MD [address] [facility] [address] [place] [address] PCP - General 08/05/17 08/05/17 Torres Boateng MD [address] [facility] [address] [place] [address] PCP - General 08/06/17 08/06/17 Satya Andrade MD [address] [facility] [address] [place] [address] PCP - General 08/07/17 08/18/17 Torres Boateng MD [address] [facility] [address] [place] [address] PCP - General 08/19/17 08/20/17 Torres Boateng MD [address] [facility] [address] [place] [address] PCP - General 08/21/17 08/21/17 Satya Andrade MD [address] [address] PCP - General 08/22/17 08/22/17 Torres Boateng MD [address] [address] PCP - General 08/23/17 08/26/17 Satya Andrade MD [address] [address] PCP - General 08/27/17 03/09/24 Jomar Marino DO [address] [address] PCP - General Internal Medicine 03/10/24 documented as of this encounter
--- OUTSIDE RECORDS SUMMARY | 2024-12-17 10:21 | XMS_ITS | Encounter Summary ---
Author Organization [facility] Address [address] [place] [address] Phone Care Team Providers Care Traffic Control Technician Name Role Phone Torres Boateng MD Primary Care Provider +1-74 Satya Andrade MD Primary Care Provider + [phone] Torres Boateng MD Primary Care Provider +1-55 Satya Andrade MD Primary Care Provider + [phone] Satya Andrade MD Primary Care Provider + [phone] Torres Boateng MD Primary Care Provider +1-76 Torres Boateng MD Primary Care Provider +1-98 Satya Andrade MD Primary Care Provider + [phone] Torres Boateng MD Primary Care Provider +1-23 Satya Andrade MD Primary Care Provider + [phone] Torres Boateng MD Primary Care Provider +1-31 Satya Andrade MD Primary Care Provider + [phone] Torres Boateng MD Primary Care Provider +1-6 [...] Torres Boateng MD Primary Care Provider +1-6 Sayta Andrade MD Primary Care Provider +1- Satya [...] Satya Andrade MD Primary Care Provider +1- [phone] Torres Boateng MD Primary Care Provider +1-6 Satya Andrade MD Primary Care Provider +1- Satya Andrade MD Primary Care Provider +1- Torres Boateng MD Primary Care Provider +1-6 Satya Andrade MD Primary Care Provider +1- [phone] Torres Boateng MD Primary Care Provider +1-6 [...] Satya Andrade MD Primary Care Provider +1- [phone] Jomar Marino Primary Care Provider Encounter Details Date Type Department Care Team [...] on file 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 Gender Identity Not on file Sexual Orientation Not on file documented as of this encounter Plan of Treatment Not on file documented as of this encounter Procedures Procedure Name Priority Date/Time Associated Diagnosis Comments OBSTETRIC/GYNECOLOGY ULTRASONOGRAPHY REPORT 04/09/2017 11:39 AM COAT OPERATOR OBSTETRIC/GYNECOLOGY ULTRASONOGRAPHY REPORT 03/14/2017 11:24 AM COAT OPERATOR documented in this encounter Results * OBSTETRIC/GYNECOLOGY ULTRASONOGRAPHY REPORT (04/09/2017 11:39 AM COAT OPERATOR) Anatomical Region Laterality Modality Ultrasound us Provider Scanning IMG OB US PROCEDURES Final Res ult * OBSTETRIC/GYNECOLOGY ULTRASONOGRAPHY REPORT (03/14/2017 11:24 AM COAT OPERATOR) Anatomical Region Laterality Modality Ultrasound us Provider Scanning IMG OB US PROCEDURES Final Res ult documented in this encounter Visit Diagnoses Not on filedocumented in this encounter Additional Health Concerns Infection Onset Date Last Indicated Resolved Time COVID: Recovered 04/06/2021 05/31/2021 08/04/2021 3:05 AM CDT COVID: Suspected 12/18/2023 12/18/2023 12/18/2023 3:54 PM CDT COVID: Suspected 03/10/2024 03/10/2024 03/10/2024 11:12 AM COAT OPERATOR COVID19 03/10/2024 03/10/2024 03/20/2024 3:05 AM COAT OPERATOR COVID: Recovered Comment:Added based on recent COVID infection. 03/20/2024 05/15/2024 06/18/2024 3:07 AM C DT COVID: Suspected 05/15/2024 05/15/2024 05/15/2024 6:25 PM COAT OPERATOR COVID: Suspected 05/15/2024 05/15/2024 05/16/2024 1:41 AM COAT OPERATOR documented as of this encounter Care Teams Traffic Control Technician Relationship Specialty Start Date End Date Torres Boateng MD [address] [facility] [address] [place] [address] PCP - General 03/14/17 03/14/17 Satya Andrade MD [address] [facility] [address] [place] [address] PCP - General 03/15/17 03/19/17 Torres Boateng MD [address] [facility] [address] [place] [address] PCP - General 03/20/17 03/20/17 Satya Andrade MD [address] [facility] [address] [place] [address] PCP - General 03/21/17 03/25/17 Satya Andrade MD [address] [facility] [address] [place] [address] PCP - General 03/26/17 03/26/17 Torres Boateng MD [address] [facility] [address] [place] [address] PCP - General 03/27/17 03/31/17 Torres Boateng MD [address] [facility] [address] [place] [address] PCP - General 04/01/17 04/01/17 Satya Andrade MD [address] [facility] [address] [place] [address] PCP - General 04/02/17 04/08/17 Torres Boateng MD [address] [address] PCP - General 04/09/17 04/09/17 Satya Andrade MD [address] [address] PCP - General 04/10/17 04/13/17 Torres Boateng MD [address] [address] PCP - General 04/14/17 04/15/17 Satya Andrade MD [address] [address] PCP - General 04/16/17 04/20/17 Torres Boateng MD [address] [facility] [address] [place] [address] PCP - General 04/21/17 04/21/17 Satya Andrade MD [address] [facility] [address] [place] [address] PCP - General 04/22/17 04/22/17 Torres Boateng MD [address] [address] PCP - General 04/23/17 04/23/17 Satya Andrade MD [address] [address] PCP - General 04/24/17 04/29/17 Torres Boateng MD [address] [address] PCP - General 04/30/17 04/30/17 Satya Andrade MD [address] [address] PCP - General 05/01/17 05/02/17 Satya Andrade MD [address] [address] PCP - General 05/03/17 05/04/17 Torres Boateng MD [address] [address] PCP - General 05/05/17 05/05/17 Torres Boateng MD [address] [facility] [address] [address] PCP - General 05/06/17 05/06/17 Torres Boateng MD [address] [place] [address] PCP - General 05/07/17 05/07/17 Satya Andrade MD [address] [facility] [address] [place] [address] PCP - General 05/08/17 05/09/17 Satya Andrade MD [address] [facility] [address] [place] [address] PCP - General 05/10/17 05/13/17 Staya Andrade MD [address] [facility] [address] [place] [address] PCP - General 05/14/17 05/15/17 Satya Andrade MD [address] [facility] [address] [place] [address] PCP - General 05/16/17 05/16/17 Satya Andrade MD [address] [facility] [address] [place] [address] PCP - General 05/17/17 05/20/17 Satya Andrade MD [address] [facility] [address] [place] [address] PCP - General 05/21/17 05/21/17 Torres Boateng MD [address] [facility] [address] [place] [address] PCP - General 05/22/17 05/22/17 Satya Andrade MD [address] [facility] [address] [place] [address] PCP - General 05/23/17 05/23/17 Satya Andrade MD [address] [facility] [address] [place] [address] PCP - General 05/24/17 05/27/17 Torres Boateng MD [address] [facility] [address] [place] [address] PCP - General 05/28/17 05/28/17 Satya Andrade MD [address] [facility] [address] [place] [address] PCP - General 05/29/17 05/30/17 Satya Andrade MD [address] [facility] [address] [place] [address] PCP - General 05/31/17 06/04/17 Satya Andrade MD [address] [facility] [address] [place] [address] PCP - General 06/05/17 06/05/17 Torres Boateng MD [address] [facility] [address] [place] [address] PCP - General 06/06/17 06/09/17 Satya Andrade MD [address] [facility] [address] [place] [address] PCP - General 06/10/17 06/10/17 Satya Andrade MD [address] [facility] [address] [place] [address] PCP - General 06/11/17 06/16/17 Torres Boateng MD [address] [facility] [address] [place] [address] PCP - General 06/17/17 06/17/17 Satya Andrade MD [address] [address] PCP - General 06/18/17 06/18/17 Torres Boateng MD [address] [address] PCP - General 06/19/17 06/19/17 Satya Andrade MD [address] [facility] [address] [place] [address] PCP - General 06/20/17 07/01/17 Satya Andrade MD [address] [facility] [address] [place] [address] PCP - General 07/02/17 07/03/17 Torres Boateng MD [address] [facility] [address] [place] [address] PCP - General 07/04/17 07/08/17 Torres Boateng MD [address] [facility] [address] [place] [address] PCP - General 07/09/17 07/09/17 Satya Andrade MD [address] [address] PCP - General 07/10/17 07/10/17 Torres Boateng MD [address] [address] PCP - General 07/11/17 07/14/17 Satya Andrade MD [address] [address] PCP - General 07/15/17 07/15/17 Torres oBateng MD [address] [address] PCP - General 07/16/17 07/16/17 Satya Andrade MD [address] [place] [address] [address] [address] PCP - General 07/17/17 07/21/17 Torres Boateng MD [address] [place] [address] [address] PCP - General 07/22/17 07/22/17 Satya Andrade MD [address] [place] [address] [address] [address] PCP - General 07/23/17 08/04/17 Torres Boateng MD [address] [address] PCP - General 08/05/17 08/05/17 Torres Boateng MD [address] [address] PCP - General 08/06/17 08/06/17 Satya Andrade MD [address] [address] PCP - General 08/07/17 08/18/17 Torres Boateng MD [address] [address] PCP - General 08/19/17 08/20/17 Torres Boateng MD [address] [address] PCP - General 08/21/17 08/21/17 Satya Andrade MD [address] [address] PCP - General 08/22/17 08/22/17 Torres Boateng MD [address] [address] PCP - General 08/23/17 08/26/17 Satya Andrade MD [address] [address] PCP - General 08/27/17 03/09/24 Jomar Marino DO [address] [facility] [address] [place] [address] PCP - General Internal Medicine 03/10/24 documented as of this encounter
--- OUTSIDE RECORDS SUMMARY | 2024-12-17 10:21 | XMS_ITS | Patient Health Record ---
Author Organization [facility] [employer] Address [address] [place] [address] Care Team Providers Care Field Appraiser Name Role Phone Jomar Marino DO Primary Care Provider UnavailYojana Villareal Unavailable [phone] Allergies Allergen (clinical drug ingredient) Drug/Non Drug Allergy documented on EMR Reaction Allergy Type Onset Date Status Non-steroidal anti-inflammatory agent (FN) NSAIDS (NON-STEROIDAL ANTI-INFLAMMATORY DRUG) (uncoded) Unknown Allergy 06/24/2023 Active Ciprofloxacin Unknown Drug Allergy 06/24/2023 Ac tive Results Component Value Reference Range Notes UDT Reviewed date:12/02/2024 01:15:09 PM Interpretation: Performing Lab: Notes/Report: THC p 0 - 50 ng/ml Cocaine n 0 - 300 ng/ml Amphetamine n 0 - 1000 ng/ml Buprenorphine (BUP) n 0 - 10 ng/ml Secobarbital (Bar) n 0 - 300 ng/ml Oxazepam (BZO) n 0 - 300 ng/ml 7-gduksvxwtx-5,9-meskioog-8,3-diphenylpyrrolidine (KERVIN P) n 0 - 300 ng/ml Methamphetamine (MET) n 0 - 1000 ng/ml Methylenedioxymethamphetamine (MDMA) n 0 - 500 ng/ml Morphine (MOP 300/LBP3658) n 0 - 300 ng/ml Methadone (MTD) n 0 - 300 ng/ml Phencyclidine (PCP) n 0 - 25 ng/ml Nortriptyline (TCA) n 0 - 1000 ng/ml Oxycodone n 0 - 300 ng/ml Reason For Referral No Information Medications Medication SIG (Take, Route, Frequency, Duration) Notes Start Date End Date Status Pantoprazole Sodium 40 MG Tablet Delayed Release Oral 06/24/2023 Activ e Metoprolol Tartrate 25 MG Tablet Oral 06/24/2023 Active Rexulti 1 MG Tablet 1 tablet Orally Once a day; Duration: 90 days 12/02/2024 Active Ergocalciferol 1.25 MG (42228 UT) Capsule Oral 06/24/2023 Active Ferrous Sulfate 325 (65 Fe) MG Tablet Oral 06/24/2023 Active Atomoxetine HCl 80 MG Capsule 1 capsule Oral Once a day; Duration: 90 days 12/02/2024 Active Escitalopram Oxalate 20 MG Tablet 1 tablet Oral Once a day; Duration: 90 days 12/02/2024 Active Levothyroxine Sodium 50 MCG Tablet Oral 06/24/2023 Active Immunizations Vaccine Route Administration Date Status Lane hartman Novel [id number], preservative free Unknown 12/31/2019 Administered Pfizer Biontech Covid-19 Vac cine 2nd dose Unknown 07/06/2020 Administered Pfizer Biontech Covid-19 Vac cine 2nd dose Unknown 07/27/2020 Administered Tdap Unknown 04/25/2016 Administered Social History Tobacco Use: Social History Observation Description Date Details (start date - stop date) Never Smoker 03/25/1996 - 03/25/1998 Sex Assigned At : Social History Observation Description Sex Assigned At Female Social History Drug/Alcohol: Social Info Question Answer Notes AUDIT-C (Standard) Did you have a drink containing alcohol in the past year? No Tobacco Use: Social Info Question Answer Notes Tobacco Control (Standard) Tobacco use: Nonsmoker When did you start smoking? 03/25/1996 When did you stop smoking? 03/25/1998 How long has it been since you last smoked? Greater than 10 years Additional Details Category Social Info Options Details Migrated Social History Migrated Social History Alcohol Intake: None 04/28/2020,Tobacco Years: Former smoker 08/04/2020 Problems Problem Type SNOMED Code ICD Code Onset Dates Problem Status W/U Status Risk Notes Problem Severe recurrent major depression without psychotic features (04681941) Major depressive disorder, recurrent severe without psychotic features (F33.2) Active confirmed Problem Generalized anxiety disorder (82735415) Generalized anxiety disorder (F41.1) Active confirmed Problem Posttraumatic stress disorder (28626749) Post-traumatic stress disorder, chronic (F43.12) Active confirmed Problem Attention deficit hyperactivity disorder, combined type (00796819) Attention-deficit hyperactivity disorder, combined type (F90.2) Active confirmed Vital Signs Heart Rate 72 /min 12/02/2024 Height-cm 172.72 cm 12/02/2024 Blood pressure diastolic 94 mm Hg 12/02/2024 Weight-kg 133.81 kg 12/02/2024 Height 68.00 in 12/02/2024 Blood pressure systolic 138 mm Hg 12/02/2024 Weight 295.0 lbs 12/02/2024 BMI 44.85 kg/m2 12/02/2024 Encounters Encounter Location Date Provider Diagnosis [address] [address] 12/24/2023 Yojana Kurdavi Generalized anxiety disorder F41.1 ; Major depressive disorder, recurrent severe without psychotic features F33.2 ; Attention-deficit hyperactivity disorder, combined type F90.2 and Post-traumatic stress disorder, chronic F43.[address] [address] 05/12/2024 Yojana Kurilla Generalized anxiety disorder F41.1 ; Major depressive disorder, recurrent severe without psychotic features F33.2 ; Attention-deficit hyperactivity disorder, combined type F90.2 and Post-traumatic stress disorder, chronic F43.[address] [address] 12/02/2024 Yojana Kurilla Generalized anxiety disorder F41.1 ; Major depressive disorder, recurrent severe without psychotic features F33.2 ; Attention-deficit hyperactivity disorder, combined type F90.2 and Post-traumatic stress disorder, chronic F43.[address] [address] 11/19/2024 Yojana Kurilla [address] [address] 11/20/2024 Yojana Kurilla Attention-deficit hyperactivity disorder, combined type F90.2 Assessments Encounter Date Diagnosis (ICD Code) Assessment Notes Treatment Notes Treatment Clinical Notes Section Notes 12/24/2023 Generalized anxiety disorder (ICD-10 - F41.1) 05/12/2024 Generalized anxiety disorder (ICD-10 - F41.1) 11/20/2024 Attention-deficit hyperactivity disorder, combined type (ICD-10 - F90.2) 12/02/2024 Generalized anxiety disorder (ICD-10 - F41.1) 12/02/2024 Major depressive disorder, recurrent severe without psychotic features (ICD-10 - F33.2) Common side effects to SSRI medications include headaches, dry mouth/eye, GI upset (including indigestion, nausea, diarrhea), sleeping problems (insomnia or drowsiness), decreased libido, blurred vision, dizziness. Generally, side effects will subside or lessen with time and are common during drug initiation and dose changes. If they persist please contact the office. 05/12/2024 Major depressive disorder, recurrent severe without [...] they persist please contact the office. 12/24/2023 Major depressive disorder, recurrent severe without [...] any h/o cardiovascular disease, including hypertension, tachyarrhythmias. 12/02/2024 Attention-deficit hyperactivity disorder, combined type (ICD-10 - F90.2) Discussed risks/benefits/al ternatives to atomoxetine, including GI side effects, weight loss, irritability, constipation, sexual dysfunction, increase in blood pressure and liver damage. Patient denies any h/o cardiovascular disease, including hypertension, tachyarrhythmias. 12/02/2024 Post-traumatic stress disorder, chronic (ICD-10 - F43.12) 05/12/2024 Post-traumatic stress disorder, chronic (ICD-10 - [...] of psychotropic medications. -Crisis prevention hotline 988. 12/02/2024 Other Start Rexulti 0.5mg daily for 7 days then 1mg dialy for mood, then 1mg daily Patient educated on all medications including potential [...] Of Treatment Next Appt Details Provider Name:Yojana marie, 12/30/2024 08:00:00 AM, [address] [facility] [address], [facility] [address], [place], [address], Insurance Providers Payer Name Payer Address Payer Phone Subscriber Number Group Number Insured Name Patient Relationship to Insured Coverage Start Date Coverage End Date [employer] [place] - On Or After 2020 [address] [facility] [place] [address] [id number] RAIMUNDO COOK Self - patient is the insured Medical (General) History Medical History History ICD Code Problems: Attention deficit hyperactivit y disorder, combined type Chronic post-traumatic stress disorder Essential hypertension Generalized anxiety disorder History of bypass of stomach Hypothyroidism Mild recurrent major depression Severe recurrent major depression withou t psychotic features Uterine fibroid polyp , Surgical History Surgery Date(Month/Year) Any surgical history Tonsilectomy/adenoids 03/25/1989 Sinus surgery 03/25/1997 Gastric bypass for obesity (03369) 03/25 Cosmetic surgery 03/25/2017 section ([id number]) 03/25/2017 Reconstructive surgery 03/25/2017
--- OUTSIDE RECORDS SUMMARY | 2024-12-17 10:21 | XMS_ITS | Encounter Summary ---
Author Organization [facility] Address [address] [place] [address] Phone Care Team Providers Care Scrap Collector Name Role Phone Torres Boateng MD Primary Care Provider [phone] Satya Andrade MD Primary Care Provider + [phone] Torres Boateng MD Primary Care Provider [phone] Satya Andrade MD Primary Care Provider + [phone] Torres Boateng MD Primary Care Provider [phone] Satya Andrade MD Primary Care Provider + [phone] Torres Boateng MD Primary Care Provider [phone] Satya Andrade MD Primary Care Provider + [phone] Torres Boateng MD Primary Care Provider [phone] Satya Andrade MD Primary Care Provider + [phone] Satya Andrade MD Primary Care Provider + [phone] Torres Boateng MD Primary Care Provider [phone] Torres Boateng MD Primary Care Provider [phone] Torres Boateng MD Primary Care Provider [phone] Satya Andrade MD Primary Care Provider +- [phone] Torres Boateng MD Primary Care Provider [phone] Torres Boateng MD Primary Care Provider [phone] Satya Andrade MD Primary Care Provider +- [phone] Torres Boateng MD Primary Care Provider [phone] Satya Andrade MD Primary Care Provider + [phone] Ned Jomar Primary Care Provider [phone] Encounter Details Date Type Department Care Team [...] on file Legal Sex Female 11:29 AM SPECIAL AGENT IN CHARGE Gender Identity Not on file Sexual Orientation Not on file documented as of this encounter Plan of Treatment Not on file documented as of this encounter Procedures Procedure Name Priority Date/Time Associated Diagnosis Comments OBSTETRIC/GYNECOLOGY ULTRASONOGRAPHY REPORT 02/19/2017 10:33 AM SPECIAL AGENT IN CHARGE OBSTETRIC/GYNECOLOGY ULTRASONOGRAPHY REPORT 01/31/2017 1:34 PM SPECIAL AGENT IN CHARGE documented in this encounter Results * OBSTETRIC/GYNECOLOGY ULTRASONOGRAPHY REPORT (02/19/2017 10:33 AM SPECIAL AGENT IN CHARGE) Anatomical Region Laterality Modality Ultrasound us Provider Scanning IMG OB US PROCEDURES Final Res ult * OBSTETRIC/GYNECOLOGY ULTRASONOGRAPHY REPORT (01/31/2017 1:34 PM SPECIAL AGENT IN CHARGE) Anatomical Region Laterality Modality Ultrasound us Provider Scanning IMG OB US PROCEDURES Final Res ult documented in this encounter Visit Diagnoses Not on filedocumented in this encounter Additional Health Concerns Infection Onset Date Last Indicated Resolved Time COVID: Recovered 04/06/2021 05/31/2021 08/04/2021 3:05 AM CDT COVID: Suspected 12/18/2023 12/18/2023 12/18/2023 3:54 PM CDT COVID: Suspected 03/10/2024 03/10/2024 03/10/2024 11:12 AM SPECIAL AGENT IN CHARGE COVID19 03/10/2024 03/10/2024 03/20/2024 3:05 AM SPECIAL AGENT IN CHARGE COVID: Recovered Comment:Added based on recent COVID infection. 03/20/2024 05/15/2024 06/18/2024 3:07 AM C DT COVID: Suspected 05/15/2024 05/15/2024 05/15/2024 6:25 PM SPECIAL AGENT IN CHARGE COVID: Suspected 05/15/2024 05/15/2024 05/16/2024 1:41 AM SPECIAL AGENT IN CHARGE documented as of this encounter Care Teams Scrap Collector Relationship Specialty Start Date End Date Torres Boateng MD [address] [address] PCP - General 01/31/17 01/31/17 Satya Andrade MD [address] [address] PCP - General 02/01/17 02/16/17 Torres Boateng MD [address] [facility] [address] [place] [address] PCP - General 02/17/17 02/18/17 Satya Andrade MD [address] [address] PCP - General 02/19/17 02/24/17 Torres Boateng MD [address] [place] [address] PCP - General 02/25/17 03/12/17 Satya Andrade MD [address] [place] [address] PCP - General 03/13/17 03/13/17 Torres Boateng MD [address] [place] [address] PCP - General 03/14/17 03/14/17 Satya Andrade MD [address] [place] [address] PCP - General 03/15/17 03/19/17 Torres Boateng MD [address] [facility] [address] [place] [address] PCP - General 03/20/17 03/20/17 Satya Andrade MD [address] [place] [address] PCP - General 03/21/17 03/25/17 Satya Andrade MD [address] [place] [address] PCP - General 03/26/17 03/26/17 Torres Boateng MD [address] [place] [address] PCP - General 03/27/17 03/31/17 Torres Boateng MD [address] [facility] [address] [place] [address] PCP - General 04/01/17 04/01/17 Satya Andrade MD [address] [facility] [address] [place] [address] PCP - General 04/02/17 04/08/17 Torres Boateng MD [address] [address] PCP - General 04/09/17 04/09/17 Satya Andrade MD [address] [address] PCP - General 04/10/17 04/13/17 Torres Boateng MD [address] [address] PCP - General 04/14/17 04/15/17 Satya Andrade MD [address] [facility] [address] [place] [address] PCP - General 04/16/17 04/20/17 Torres Boateng MD [address] [facility] [address] [place] [address] PCP - General 04/21/17 04/21/17 Satya Andrade MD [address] [facility] [address] [place] [address] PCP - General 04/22/17 04/22/17 Torres Boateng MD [address] [facility] [address] [place] [address] PCP - General 04/23/17 04/23/17 Satya Andrade MD [address] [facility] [address] [place] [address] PCP - General 04/24/17 04/29/17 Torres Boateng MD [address] [facility] [address] [place] [address] PCP - General 04/30/17 04/30/17 Satya Andrade MD [address] [facility] [address] [place] [address] PCP - General 05/01/17 05/02/17 Satya Andrade MD [address] [facility] [address] [place] [address] PCP - General 05/03/17 05/04/17 Torres Boateng MD [address] [facility] [address] [place] [address] PCP - General 05/05/17 05/05/17 Torres Boateng MD [address] [facility] [address] [place] [address] PCP - General 05/06/17 05/06/17 Torres Boateng MD [address] [facility] [address] [place] [address] PCP - General 05/07/17 05/07/17 Satya Andrade MD [address] [facility] [address] [place] [address] PCP - General 05/08/17 05/09/17 Satya Andrade MD [address] [facility] [address] [place] [address] PCP - General 05/10/17 05/13/17 Satya Andrade MD [address] [address] PCP - General 05/14/17 05/15/17 Satya Andrade MD [address] [address] PCP - General 05/16/17 05/16/17 Satya Andrade MD [address] [address] PCP - General 05/17/17 05/20/17 Satya Andrade MD [address] [facility] [address] [place] [address] PCP - General 05/21/17 05/21/17 Torres Boateng MD [address] [address] PCP - General 05/22/17 05/22/17 Satya Andrade MD [address] [place] [address] PCP - General 05/23/17 05/23/17 Satya Andrade MD [address] [place] [address] PCP - General 05/24/17 05/27/17 Torres Boateng MD [address] [facility] [address] [place] [address] PCP - General 05/28/17 05/28/17 Satya Andrade MD [address] [place] [address] PCP - General 05/29/17 05/30/17 Satya Andrade MD [address] [place] [address] PCP - General 05/31/17 06/04/17 Satya Andrade MD [address] [facility] [address] [place] [address] PCP - General 06/05/17 06/05/17 Torres Boateng MD [address] [facility] [address] [place] [address] PCP - General 06/06/17 06/09/17 Satya Andrade MD [address] [place] [address] PCP - General 06/10/17 06/10/17 Satya Andrade MD [address] [place] [address] PCP - General 06/11/17 06/16/17 Torres Boateng MD [address] [place] [address] PCP - General 06/17/17 06/17/17 Satya Andrade MD [address] [place] [address] PCP - General 06/18/17 06/18/17 Torres Boateng MD [address] [place] [address] PCP - General 06/19/17 06/19/17 Satya Andrade MD [address] [place] [address] PCP - General 06/20/17 07/01/17 Satya Andrade MD [address] [place] [address] PCP - General 07/02/17 07/03/17 Torres Boateng MD [address] [place] [address] PCP - General 07/04/17 07/08/17 Torres Boateng MD [address] [place] [address] PCP - General 07/09/17 07/09/17 Satya Andrade MD [address] [facility] [address] [place] [address] PCP - General 07/10/17 07/10/17 Torres Boateng MD [address] [address] PCP - General 07/11/17 07/14/17 Satya Andrade MD [address] [address] PCP - General 07/15/17 07/15/17 Torres Boateng MD [address] [address] PCP - General 07/16/17 07/16/17 Satya Andrade MD [address] [address] PCP - General 07/17/17 07/21/17 Torres Boateng MD [address] [address] PCP - General 07/22/17 07/22/17 Satya Andrade MD [address] [address] PCP - General 07/23/17 08/04/17 Torres Boateng MD [address] [address] PCP - General 08/05/17 08/05/17 Torres Boateng MD [address] [address] PCP - General 08/06/17 08/06/17 Satya Andrade MD [address] [address] PCP - General 08/07/17 08/18/17 Torres Boateng MD [address] [address] PCP - General 08/19/17 08/20/17 Torres Boateng MD [address] [address] PCP - General 08/21/17 08/21/17 Satya Andrade MD [address] [address] PCP - General 08/22/17 08/22/17 Torres Boateng MD [address] [address] PCP - General 08/23/17 08/26/17 Satya Andrade MD [address] [address] PCP - General 08/27/17 03/09/24 Jomar Marino DO [address] [address] PCP - General Internal Medicine 03/10/24 documented as of this encounter
--- OUTSIDE RECORDS SUMMARY | 2024-12-17 10:21 | XMS_ITS | Clinical Summary ---
Author Organization [facility] Address [address] [place] [address] Care Team Providers Care Logistics Planning Engineer Name Role Phone Jomar Marino DO Primary Care Provider [phone] Allergies Active Allergy Reactions Criticality Noted Date [...] (11/06/2017): Added automatically from request for surgery [id number] Non-healing surgical wound 07/23/2017 1 04/22/2017 Assessment [...] 1 7 - 1998 Smokeless Tobacco: Never Tobacco Cessation:Counseling [...] on file Legal Sex Female 11:29 AM BINDERY OPERATOR Gender Identity Not on file Sexual Orientation Not on file Obstetrics History Last Filed Vital Signs Vital Sign Reading Time Taken Comments Blood Pressure 133/88 05/15/2024 6:03 PM BINDERY OPERATOR Pulse 88 05/15/2024 6:03 PM BINDERY OPERATOR Temperature 36.5 C (97.7 F) 05/15/2024 6:03 PM BINDERY OPERATOR Respiratory Rate 20 05/15/2024 6:03 PM BINDERY OPERATOR Oxygen Saturation 96% 05/15/2024 6:03 PM BINDERY OPERATOR Inhaled Oxygen Concentration - - Weight 129.3 kg (285 lb) 05/15/2024 6:03 PM BINDERY OPERATOR Height 172.7 cm (5' 8) 12/18/2023 3:31 PM CDT Body Mass Index 43.33 12/18/2023 3:31 PM CDT Plan of Treatment Health Maintenance Due Date Last Done Comments Breast Cancer Screening-Mammogram 1980 Cervical Cancer Screening 1980 Depression Screening 1980 Hepatitis C Screening 1980 Varicella Vaccines (1 of 2 - 13+ 2-dose series) 1993 Hepatitis B Screening 1998 Regular Well Visit/Exam 18-64 1998 HPV Vaccines (1 - 3-dose SCDM series) 09/07/2007 Covid-19 Vaccine (3 - season) 2024 07/27/2020, 07/06/2020 Influenza Vaccine (#1) 2024 , 12/31/2019, 01/15/2017, Additional history exists DTaP/Tdap/Td Vaccine (3 - Td or Tdap) 04/23/2027 04/23/2017, 04/25/2016 Pneumococcal vaccine <65 Aged Out No longer eligible based on patient's age to complete this topic Medical Devices Implanted Type Area Chief Load Dispatcher Device Identifier Shelf Expiration Date Model / Serial / Lot Ph[employer]ix Mesh Implanted:Qty: 1 on 11/11/2017 by Kerwin Bennett III, MD at [facility] N/A: Abdomen [employer] [id number] 03/21/2019 / / [id number] Insurance * Guarantor: Lakeshia Reyez Account Type Relation to Patient Date of Phone Billing Address Personal/Family Self [address] [address] [facility] * Guarantor: Lakeshia Reyez Account Type Relation to Patient Date of Phone Billing Address Personal/Family Self 1980 [address] [address] [facility] MEDICARE * Guarantor: Lakeshia Reyez Account Type Relation to Patient Date of Phone Billing Address Personal/Family Self 1980 [address] [place] [address] MEDICARE MEDICARE [facility] * Guarantor: Lakeshia Reyez Account Type Relation to Patient Date of Phone Billing Address Personal/Family Self 1980 [address] [place] [address] [facility] Advance Directives For more information, please contact: [phone] * Full Code (Latest Code Status on File) Date Activated Date Inactivated Comments 07/24/2018 8:49 PM 07/25/2018 4:15 PM * Full Code Date Activated Date Inactivated Comments 11/25/2017 10:05 PM 11/28/2017 12:40 PM * Full Code Date Activated Date Inactivated Comments 11/11/2017 6:17 PM 11/14/2017 2:47 PM Care Teams Logistics Planning Engineer Relationship Specialty Start Date End Date Jomar Marino DO PCP - General Internal Medicine 03/10/24
--- OUTSIDE RECORDS SUMMARY | 2024-12-17 10:21 | XMS_ITS | Clinical Summary ---
Author Organization [facility] Address [facility] [place] [address] Care Team Providers Care Plastic Block Boiler Reliner Name Role Phone Jomar Marino DO Primary Care Provider [phone] Allergies No known active allergies Medications naproxen [...] 10:25 AM CDT Height 172.7 cm (5' 8) 11/23/2023 10:25 AM CDT Body Mass Index 44.09 11/23/2023 10:25 AM CDT Plan of Treatment Health Maintenance Due Date Last Done Comments Cervical Cancer Screening Pa p Smear (Age 30 to 64) Every 3 Years 1980 Annual Physical 09/07/1983 Hepatitis C 1998 Hepatitis B Vaccines (1 of 3 - 19+ 3-dose series) 09/07/1999 HPV Vaccines (1 - 3-dose SCD M series) 09/07/2007 Cervical Cancer Screening Pa p with HPV Testing (Age 30 to 64) Every 5 Years 2010 Cervical Cancer Screening wi th HPV 2010 Mammogram Screening 2020 COVID-19 Vaccine (4 - 2024-2 6 season) 2024 04/11/2022, 07/27/2020, 07/06/2020 DTaP, Tdap and Td Vaccines ( 3 - Td or Tdap) 04/23/2027 04/23/2017, 04/25/2016 Meningococcal B Vaccine Aged Out No l onger eligible based on patient's age to complete this topic Meningococcal Vaccine Aged Out No allie cristina eligible based on patient's age to complete this topic Pneumococcal Vaccine: Pediatrics (0 to 5 Years) and At-Risk Patients (6 to 49 Years) Aged Out No longer eligible b ased on patient's age to complete this topic RSV Immunizations Under 20 Months Aged Out No longer eligible b ased on patient's age to complete this topic Insurance [facility] Care Teams Plastic Block Boiler Reliner Relationship Specialty Start Date End Date Jomar Marino DO [address] [address] PCP - General INTERNAL MEDICINE 11/23/23
[2024-12-17 10:28] LABS: Hematocrit 42.2 % (37.0-47.0); Hemoglobin 13.6 g/dL (12.0-15.0); Immature Granulocyte Percent A 0.2 % (0-0.5); Lymphocytes Absolute Auto 1.53 K/mm3 (0.9-3.2); Mean Corpuscular HGB Conc 32.2 g/dl (32-36); Mean Corpuscular Hemoglobin 29.8 pg (26-34); Mean Corpuscular Volume 92.5 fl (80-100); Nucleated Red Blood Cells Absolute Auto 0.000 K/mm3 (0.0-0.012); Nucleated Red Blood Cells Perc 0.0 % (0.0-0.2); Platelet Count Result 263 k/mm3 (150-375); Red Blood Count 4.56 M/mm3 (4.2-5.4); White Blood Count 5.7 K/mm3 (4.5-10.0)
[2024-12-17 10:49] LABS: Iron 101 ug/dL (37-170)
[2024-12-17 10:58] LABS: Percent Iron Saturation 24 % (20-50)
[2024-12-17 11:07] LABS: Alanine Aminotransferase 26 U/L (6-35); Albumin Level 4.2 g/dL (3.5-5.1); Alkaline Phosphatase 60 U/L (38-126); Anion Gap 5 mmol/L (4-12); Aspartate Amino Transferase 32 U/L (14-36); Bilirubin,Total 0.6 mg/dL (0.2-1.3); Blood Urea Nitrogen 14 mg/dL (7-17); Calcium 8.9 mg/dL (8.4-10.2); Carbon Dioxide 29 mmol/L (22-30); Chloride 104 mmol/L (98-107); Cholesterol 200 mg/dL (0-200); Estimated Glomerular Filt Rate > 60; Glucose 92 mg/dL (65-110); HDL Direct 46 mg/dL; Potassium 4.4 mmol/L (3.4-5.0); Sodium 138 mmol/L (137-145); Total Protein 7.1 g/dL (6.3-8.2); Triglycerides 148 mg/dL (<150)
[2024-12-17 11:42] LABS: Thyroid Stimulating Hormone 4.030 uIU/mL (0.465-4.680)
[2024-12-17 12:02] LABS: Vitamin B12 > 1000.0 pg/mL (239-931)
== END 2024-12-17 09:32 | disposition home or self-care (01) ==
PROVIDERS: PCP Internal Medicine; Visit Provider Internal Medicine
DX: D50.9 Iron deficiency anemia, unspecified (principal); E78.5 Hyperlipidemia, unspecified; E55.9 Vitamin D deficiency, unspecified; E03.9 Hypothyroidism, unspecified; R55 Syncope and collapse; E66.9 Obesity, unspecified; Z98.84 Bariatric surgery status
CPT/HCPCS: 36415; 80053; 80061; 82306; 82607; 83540; 83550; 84443; 85025